=== PATIENT | male | born 1980 | race Caucasian/White ===

== ENCOUNTER 2021-09-26 08:07 | Outpatient (REF) | payer OTHER, SELFPAY ==
[2021-09-26 09:02] LABS: Alanine Aminotransferase 33 U/L (0-40); Albumin Level 4.8 g/dL (3.5-5.0); Alkaline Phosphatase 72 U/L (39-117); Anion Gap 13 (12-20); Aspartate Amino Transferase 22 U/L (5-37); Bilirubin Total 1.3 mg/dL (0.0-1.0); Blood Urea Nitrogen 21 mg/dL (9-16); Calcium 10.1 mg/dL (8.4-10.2); Carbon Dioxide 25 mmol/L (22-29); Chloride 106 mmol/L (96-108); Cholesterol 208 mg/dL; Estimated Glomerular Filt Rate > 60; Glucose Fasting 113 mg/dL (60-99); HDL Cholesterol 44 mg/dL; Hematocrit 48.6 % (42.0-52.0); LDL Cholesterol Calculated 145 mg/dl; Mean Corpuscular HGB Conc 32.9 g/dl (31.0-36.0); Mean Corpuscular Hemoglobin 27.3 pg (27.0-33.0); Mean Corpuscular Volume 82.8 fL (80.0-98.0); Mean Platelet Volume 11.2 fL (9.4-12.4); Platelet Count 283 X10*3/uL (160-400); Potassium 4.8 mmol/L (3.3-5.1); Red Blood Count 5.87 X10*6/uL (4.60-5.80); Sodium 139 mmol/L (135-145); Total Protein 7.7 g/dL (6.5-8.0); Triglycerides 98 mg/dL; White Blood Count 7.2 X10*3/uL (4.8-10.8)
[2021-09-26 09:23] LABS: TSH reflex Free T4 1.35 uIU/mL (0.32-4.0)
== END 2021-09-26 08:08 | disposition home or self-care (01) ==
LOC: HO.LAB 08:07
PROVIDERS: PCP Internal Medicine; Visit Provider Nurse Practitioner Family
DX: Z00.00 Encounter for general adult medical examination without abnormal findings (principal); E78.00 Pure hypercholesterolemia, unspecified
CPT/HCPCS: 36415; 80053; 80061; 84443; 85027

== ENCOUNTER 2021-10-08 14:10 | Outpatient (REF) | payer OTHER, SELFPAY ==
--- NOTE | ~2021-10-08 | MM_ITS ---
EXAMINATION: MM DIAGNOSTIC DIGITAL BREAST TOMOSYNTHESIS, BILATERAL US DIAGNOSTIC ULTRASOUND BREAST, LEFT CLINICAL INFORMATION: 40-year-old male with chronic small oval palpable area lateral left breast. No prior breast imaging. No known family history breast cancer. COMPARISON: None (current study represents initial baseline exam). TECHNIQUE: Digital breast tomosynthesis is performed in both the craniocaudal and mediolateral oblique views along with computer-aided detection (CAD). Synthesized 2D images are generated from the tomosynthesis. Ultrasound left breast is targeted to the area of clinical concern. Patient is able to point to area at time of imaging. Grayscale imaging and color Doppler are performed without and with harmonics. FINDINGS: The breasts are almost entirely fatty (ACR BI-RADS breast composition Category a). There is no mass or architectural abnormality or abnormal calcifications. No skin thickening or coarsening of the stromal markings. No visible lipoma. The axilla and skin contours are unremarkable. Ultrasound demonstrates no cystic or solid mass or architectural abnormality. No duct ectasia. No skin thickening or edema tracking in soft tissue planes. There is subtle incidental oval hyperechoic fat lobule at site of palpable concern 1:00 position 4 cm from nipple measuring 1.3 x 0.7 cm on ultrasound. No corresponding mammographic finding or lipoma in this area. The chest wall soft tissues appear normal. No hyperemia. Results are discussed with the patient at time of visit. MM/MM tomosynthesis diagnostic BI IMPRESSION: 1. No mammographic evidence of malignancy or inflammatory changes 2. Unremarkable targeted left breast ultrasound. ASSESSMENT: BI-RADS 1: Negative RECOMMENDATION: -Patient should be managed based on the clinical impression. -If there remains a clinically palpable areas of concern, surgical consult may be considered.
== END 2021-10-08 14:11 | disposition home or self-care (01) ==
LOC: HO.MAMMO 14:10
PROVIDERS: Visit Provider Nurse Practitioner Family
DX: N63.21 Unspecified lump in the left breast, upper outer quadrant (principal)
CPT/HCPCS: 76642; 77062; 77066

== ENCOUNTER 2022-05-04 09:18 | Outpatient (REF) | payer OTHER, SELFPAY ==
--- NOTE | ~2022-05-04 | XR_ITS ---
EXAMINATION: 1. RADIOGRAPHS RIGHT KNEE 2. RADIOGRAPHS LEFT KNEE CLINICAL INFORMATION: Knee pain COMPARISON: None TECHNIQUE: 2 views of each knee were obtained. FINDINGS: Right knee: No fracture or dislocation. Trace suprapatellar joint effusion. There is mild narrowing of the medial joint space height. Moderate-sized tricompartmental marginal osteophytes are present. No focal soft tissue swelling of the anterior knee. Left knee: No fracture or dislocation. No suprapatellar joint effusion. Joint spaces are maintained. No significant osteophytes. No focal soft tissue swelling of the anterior knee. XR/XR knee RT 2V IMPRESSION: 1. Moderate degenerative changes of the right knee. 2. Grossly unremarkable radiographs of the left knee.
--- NOTE | ~2022-05-04 | XR_ITS ---
EXAMINATION: 1. RADIOGRAPHS RIGHT KNEE 2. RADIOGRAPHS LEFT KNEE CLINICAL INFORMATION: Knee pain COMPARISON: None TECHNIQUE: 2 views of each knee were obtained. FINDINGS: Right knee: No fracture or dislocation. Trace suprapatellar joint effusion. There is mild narrowing of the medial joint space height. Moderate-sized tricompartmental marginal osteophytes are present. No focal soft tissue swelling of the anterior knee. Left knee: No fracture or dislocation. No suprapatellar joint effusion. Joint spaces are maintained. No significant osteophytes. No focal soft tissue swelling of the anterior knee. XR/XR knee LT 2V IMPRESSION: 1. Moderate degenerative changes of the right knee. 2. Grossly unremarkable radiographs of the left knee.
== END 2022-05-04 09:19 | disposition home or self-care (01) ==
LOC: HO.XRAY 09:18
PROVIDERS: PCP Internal Medicine; Visit Provider Internal Medicine
DX: M25.561 Pain in right knee (principal); M25.562 Pain in left knee
CPT/HCPCS: 73560

== ENCOUNTER 2022-10-22 06:59 | Outpatient (REF) | payer OTHER, SELFPAY ==
[2022-10-22 07:09] LABS: MANUAL DIFF FLAG NO
[2022-10-22 07:34] LABS: Basophils Percent Auto 0.6 % (0-2); Eosinophils Absolute Auto 0.3 X10*3/uL (0.0-0.4); Eosinophils Percent Auto 3.7 % (0-4); Hematocrit 46.6 % (42.0-52.0); Hemoglobin 15.7 g/dl (14.0-18.0); Imm Gran Abs Auto 0.02 X10*3/uL (0.00-0.03); Imm Gran Pct Auto 0.3 % (0.0-0.4); Lymphocytes Absolute Auto 2.8 X10*3/uL (1.2-4.9); Lymphocytes Percent Auto 39.3 % (20-40); Mean Corpuscular HGB Conc 33.7 g/dl (31.0-36.0); Mean Corpuscular Hemoglobin 27.1 pg (27.0-33.0); Mean Corpuscular Volume 80.5 fL (80.0-98.0); Mean Platelet Volume 11.1 fL (9.4-12.4); Monocytes Absolute Auto 0.7 X10*3/uL (0.1-1.2); Monocytes Percent Auto 10.1 % (2-11); Neutrophils Absolute Auto 3.2 x10*3/uL (2.0-8.3); Platelet Count 259 X10*3/uL (160-400); Red Blood Count 5.79 X10*6/uL (4.60-5.80); Red Cell Distribution Width 11.9 % (11.0-16.0)
[2022-10-22 07:45] LABS: Estimated Average Glucose 105 mg/dL; Hemoglobin A1c % 5.3 %
[2022-10-22 08:04] LABS: Alanine Aminotransferase 29 U/L (0-40); Albumin Level 4.7 g/dL (3.5-5.0); Alkaline Phosphatase 68 U/L (39-117); Anion Gap 12 (12-20); Aspartate Amino Transferase 19 U/L (5-37); Bilirubin Total 1.6 mg/dL (0.0-1.0); Blood Urea Nitrogen 28 mg/dL (9-16); Calcium 9.3 mg/dL (8.4-10.2); Carbon Dioxide 20 mmol/L (22-29); Chloride 109 mmol/L (96-108); Cholesterol 205 mg/dL; Estimated Glomerular Filt Rate > 60; Glucose Random 102 mg/dL (60-115); HDL Cholesterol 44 mg/dL; LDL Cholesterol Calculated 133 mg/dl; Potassium 4.3 mmol/L (3.3-5.1); Sodium 137 mmol/L (135-145); Total Protein 7.2 g/dL (6.5-8.0); Triglycerides 143 mg/dL
[2022-10-22 08:37] LABS: Folate 8.3 ng/mL (> or = 4.0); Free T4 (Free Thyroxine) 0.98 ng/dL (0.71-1.85); Thyroid Stimulating Hormone 1.83 uIU/mL (0.32-4.0); Vitamin B12 471 pg/mL (200-900)
== END 2022-10-22 07:00 | disposition home or self-care (01) ==
LOC: HO.LAB 06:59
PROVIDERS: PCP Internal Medicine; Visit Provider Internal Medicine
DX: R73.02 Impaired glucose tolerance (oral) (principal); E78.00 Pure hypercholesterolemia, unspecified
CPT/HCPCS: 36415; 80053; 80061; 82607; 82746; 83036; 84439; 84443; 85025

== ENCOUNTER 2022-12-24 17:00 | Outpatient (RCR) | payer OTHER, SELFPAY ==
--- NOTE | 2022-12-01 18:20 | MHC.PT.EP ---
[facility] [place] Office [place] Office [place] Office [address] [phone] F: [phone] F: [phone] F: [phone] F: [phone] Physical Therapy Plan of Care Date of Evaluation: Date of Surgery: Diagnosis: RIGHT knee pain LEFT knee pain Assessment: Patient is a 41 y.o. male who is referred to PT by Dr. Babar MD, with Dx of RIGHT knee pain and LEFT knee pain. PT diagnosis is Hx of R knee ACL, MCL and meniscal tear from old imaging per patient with no recent MRI. Patient impairments include pain, weakness, instability. Patient current functional limitations are lying, sitting, ascending stairs, descending stairs, squatting. Patient will benefit from skilled PT to address aforementioned impairments and functional limitations to meet established goals. Frequency and Duration: The patient will be seen 2x/week for 4 weeks Short Term Goals: 2 weeks Patient demonstrates consistency and independence with HEP to self manage symptoms. Patient presents with normalized gait pattern without Trendelenberg gait on L. Pound Attendant Goals: 4 weeks Patient presents with increased R knee quad strength 4+/5 to ascend a flight of stairs without difficulty. Patient presents with increased L glute med strength 5/5 to perform squat to low surface with increased stability. Treatment Plan: Modalities to reduce pain, spasms and effusion. Manual therapy to restore motion and function. Therapeutic exercise to improve strength and flexibility. Neuromuscular re-education for posture and balance. Therapeutic activities to return to functional activities of daily living. Electronically signed by: Aleksandar Carter, PT, DPT Please sign and return to therapist. Thank you for your referral.
--- NOTE | 2023-01-20 14:57 | MHC.PT.DC ---
[facility] [place] Office [place] Office [place] Office [address] 140 [facility] [phone] F: [phone] F: [phone] F: [phone] F: [phone] Physical Therapy Discharge Report Diagnosis: RIGHT knee pain LEFT knee pain Date of Surgery: Date of Evaluation: 12/01/22 Date of Discharge: 12/24/22 Treatments to Date: 4 Cancellations to Date: 2 No Shows to Date: 1 Discharge Status: Independent with HEP Visit Non-compliance Discharge Summary: Patient ceased attending PT on his own accord as of 12/24/2022. He is therefore discharged from PT. Electronically signed by: Aleksandar Carter, PT, DPT Please sign and return to therapist. Thank you for your referral.
== END 2023-01-20 14:57 | disposition home or self-care (01) ==
LOC: HO.PT 17:00
PROVIDERS: PCP Internal Medicine; Visit Provider Internal Medicine
DX: M25.561 Pain in right knee (principal); M25.562 Pain in left knee
CPT/HCPCS: 97110; 97112; 97161

== ENCOUNTER 2023-04-27 07:52 | Outpatient (REF) | payer OTHER, SELFPAY ==
[2023-04-27 08:06] LABS: MANUAL DIFF FLAG NO
[2023-04-27 08:13] LABS: Basophils Absolute Auto 0.1 X10*3/uL (0.0-0.2); Basophils Percent Auto 0.9 % (0-2); Eosinophils Absolute Auto 0.2 X10*3/uL (0.0-0.4); Eosinophils Percent Auto 4.2 % (0-4); Hematocrit 43.3 % (42.0-52.0); Hemoglobin 15.3 g/dl (14.0-18.0); Imm Gran Abs Auto 0.02 X10*3/uL (0.00-0.03); Imm Gran Pct Auto 0.3 % (0.0-0.4); Lymphocytes Absolute Auto 2.3 X10*3/uL (1.2-4.9); Lymphocytes Percent Auto 40.5 % (20-40); Mean Corpuscular HGB Conc 35.3 g/dl (31.0-36.0); Mean Corpuscular Hemoglobin 28.9 pg (27.0-33.0); Mean Corpuscular Volume 81.7 fL (80.0-98.0); Mean Platelet Volume 10.1 fL (9.4-12.4); Monocytes Absolute Auto 0.5 X10*3/uL (0.1-1.2); Monocytes Percent Auto 9.4 % (2-11); Neutrophils Absolute Auto 2.6 x10*3/uL (2.0-8.3); Neutrophils Percent Auto 44.7 % (45-73); Platelet Count 268 X10*3/uL (160-400); White Blood Count 5.8 X10*3/uL (4.8-10.8)
[2023-04-27 08:20] LABS: Estimated Average Glucose 103 mg/dL; Hemoglobin A1c % 5.2 % (<6.0)
[2023-04-27 08:47] LABS: Alanine Aminotransferase 36 U/L (0-40); Albumin Level 4.7 g/dL (3.5-5.0); Alkaline Phosphatase 63 U/L (39-117); Anion Gap 13 (12-20); Aspartate Amino Transferase 25 U/L (5-37); Bilirubin Total 1.4 mg/dL (0.0-1.0); Blood Urea Nitrogen 15 mg/dL (9-16); Calcium 9.2 mg/dL (8.4-10.2); Carbon Dioxide 23 mmol/L (22-29); Chloride 106 mmol/L (96-108); Cholesterol 191 mg/dL (<200); Estimated Glomerular Filt Rate > 60; Glucose Random 108 mg/dL (60-115); HDL Cholesterol 46 mg/dL (>40); LDL Cholesterol Calculated 117 mg/dL (<100); Sodium 138 mmol/L (135-145); Total Protein 7.7 g/dL (6.5-8.0); Triglycerides 141 mg/dL (<150)
[2023-04-27 09:07] LABS: Free T4 (Free Thyroxine) 0.92 ng/dL (0.71-1.85); Thyroid Stimulating Hormone 1.31 uIU/mL (0.32-4.0)
[2023-04-27 09:18] LABS: Folate 12.1 ng/mL (> or = 4.0); Vitamin B12 737 pg/mL (200-900)
== END 2023-04-27 07:53 | disposition home or self-care (01) ==
LOC: HO.LAB 07:52
PROVIDERS: PCP Internal Medicine; Visit Provider Internal Medicine
DX: R73.02 Impaired glucose tolerance (oral) (principal); E78.00 Pure hypercholesterolemia, unspecified
CPT/HCPCS: 36415; 80053; 80061; 82607; 82746; 83036; 84439; 84443; 85025

== ENCOUNTER 2023-04-30 08:34 | Outpatient (AMB) | payer OTHER, SELFPAY ==
[2023-04-30 08:44] VITALS: BP 140/80; PULSE 80; O2SAT 98; BMI 33.7
--- NOTE | 2023-04-30 08:44 | A.OFFPC_ITS ---
Vital Signs 04/30/23 08:44 04/30/23 09:08 Height 6 ft 0.5 in Weight 252 lb BMI 33.7 BP 140/80 H 140/80 H Blood Pressure Location Lt brachial Lt brachial Position Sitting Sitting Pulse 80 Pulse Source Pulse Oximeter Pulse Oximetry (%) 98 Oxygen Delivery Method Room Air Intake Visit Reasons: PE +NEEDS PHQ9/THRIVE Allergies No Known Allergies Allergy (Verified 04/30/23 08:44) Medication List - Last Reconciled 04/30/23 by Chilango Eckert MD albuterol sulfate 2.5 mg inhalation Q6H PRN albuterol sulfate 90 mcg/actuation 2 inhalations inhalation Q6-8H PRN alpha-1 proteinase inhib.(hum) IV fluticasone propion-salmeterol 500-50 mcg/dose (Wixela Inhub) 1 inh PO BID [Hinged KNEE Brace As directed] meloxicam 15 mg PO DAILY tiotropium bromide 1.25 mcg/actuation (Spiriva Respimat) 2 puffs inhalation DAILY Tobacco use date assessed: 10/27/22 Dental Screening Dental Screen Date: 04/30/23 Did you have a dental visit in the last 12 months?: Yes Did you have a dental problem in the last 6 months where you did not have access to dental care?: No Was dental information given to patient?: Patient has dentist HPI PE +NEEDS PHQ9/THRIVE HPI Details 42-year-old obese male with impaired glu cose tolerance asthma with alpha 1 antitrypsin deficiency coming in for follow-up. Patient had a right ACL tear. Last seen in October 2022. Patient follows up with pulmonary on Symbicort Spiriva and Singulair on Prolastin February 2023 right knee x-ray did show degenerative changes. BP elevated states DRANK [employer] [facility] Medical History (Updated 04/30/23 @ 09:33 by Chilango Eckert MD) Osteoarthritis of right knee Lyjrw-1-vflcbvrnqji deficiency Severe persistent asthma Vitamin D deficiency Physical exam Obesity (BMI 30-39.9) Impaired glucose tolerance Surgical History Finger fracture Status post arthroscopy of hip Family History (Updated 09/25/21 @ 16:47 by DINESH Krueger) Father No problems noted. Mother No problems noted. Maternal Grandfather Myocardial infarction Paternal Grandfather Esophageal cancer Social History (Updated 09/25/21 @ 16:46 by DINESH Krueger) Housing: House Alcohol intake: never Patient Tobacco Use Status: Former Tobacco user Quit Date: 2016 Tobacco use type: Cigarette e-Cigarette/Vaping Use: Never Used Second Hand Smoke Exposure: No service: No Current occupational status: employed Cognitive needs: No Hearing needs: No Vision needs: Yes (contacts) Questionnaire Thrive Questionnaire Date Thrive assessed: 10/27/22 AMIRAH-7 AMB Questionnaire AMIRAH-7 Date AMIRAH - 7 assessed: 10/27/22 Source: Developed by Drs. Ronnell Hull, Yolanda Ramirez, Dc Campbell and colleagues, with an educational brayan from [employer]. Review of Systems Const Denies poor appetite and Denies weakness Eyes Denies no additional complaints ENT Reports Normal hearing present, Denies dizziness, Denies nasal congestion, Denies tinnitus and Denies sore throat Card Denies chest pain, Denies syncope, Denies rapid heart rate and Denies dyspnea Resp Denies cough and Denies dyspnea GI Denies change in stool character, Reports constipation, Denies diarrhea, Denies nausea and Denies vomiting Denies dysuria and Denies urinary frequency Neuro Reports Normal hearing present, Denies confusion, Denies dizziness, Denies syncope and Denies weakness Psych Denies confusion Physical exam (Primary Care) Vital Signs: Last Vital Signs Pulse 80 04/30/23 08:44 BP 140/80 H 04/30/23 08:44 Pulse Ox 98 04/30/23 08:44 Oxygen Delivery Method Room Air 04/30/23 08:44 BMI result Body Mass Index 33.7 Tobacco/Smoking Status: Tobacco use Status Tobacco use date assessed 10/27/22 04/30/23 08:49 Patient Tobacco Use Status Former Tobacco user 04/30/23 08:49 Tobacco use type Cigarette 04/30/23 08:49 e-Cigarette/Vaping Use Never Used 04/30/23 08:49 Thrive Assessment: Date of Thrive Assessment Date Thrive assessed 10/27/22 04/30/23 08:49 Const General: No confusion Orientation/consciousness: No confusion HENMT Head: Yes normocephalic Ears: external ears normal and TM's normal bilaterally Face and sinus: Yes normal facial exam Mouth: moist mucous membranes Throat: Yes tonsils normal Eyes Conjunctivae: conjunctivae normal Pupils: Equal, round and reactive pupils present and Pupil accommodation reflex normal Direct Ophthalmoscopy: normal light reflex Neck Neck: No lymphadenopathy Thyroid: Thyroid normal Chest Chest palpation & inspection: normal inspection of the chest Resp Effort & Inspection: normal respiratory effort and no audible wheezes Auscultation: clear to auscultation bilaterally, no crackles, no wheezes and lung sounds not diminished Cardio Rate: regular rate Rhythm: regular rhythm Peripheral pulses: radial pulses present and dorsalis pedis present GI Other: visual negative Palpation (GI): no masses Auscultation: normal bowel sounds and normoactive bowel sounds Rectal Exam - Male: Yes deferred Male General Exam: Yes normal external exam Skin General skin exam: no rashes or lesions noted Rashes: no rashes Neuro General: No confusion Cranial nerves: Yes Equal, round and reactive pupils present and Yes Normal hea ring present Cognition (Neuro): normal cognition Gait exam (Neuro): Normal gait present Motor exam (neuro): 5/5 motor strength present throughout Deep tendon reflexes (DTR's): Right brachioradialis reflex intensity grade: 2+, Left brachioradialis reflex intensity grade: 2+, Right patellar reflex intensity grade: 2+ and Left patellar reflex intensity grade: 2+ Extrem Other: has bunions but not ready for surgery General: No edema Assessment and Plan Assessment & Plan (1) Annual physical exam: Code(s): Z00.00 - Encounter for general adult medical examination without abnormal findings (2) Right ACL tear: Comment: October 1999 and complex tear medial and lateral meniscus, anterior cruciate ligament tear moderate degenerative changes Code(s): S83.511A - Sprain of anterior cruciate ligament of right knee, initial encounter (3) Ragzv-3-yonyuvabiwq deficiency: Code(s): E88.01 - Uojcf-7-cmovqoabjwm deficiency Plan: Patient being followed up by Pulmonary Dr. Page remarkable improvement after the infusion of Prolastin (4) Obesity (BMI 30-39.9): Code(s): E66.9 - Obesity, unspecified Plan: Diet and exercise (5) Impaired glucose tolerance: Code(s): R73.02 - Impaired glucose tolerance (oral) Plan: Decrease the amount of carbohydrate intake, pasta, bread, rice and potatoes are all sugar and that is aside from all the sweet stuff, remember that fruits are good but they are Sweet also. Hemoglobin A1c is normal (6) Severe persistent asthma: Code(s): J45.50 - Severe persistent asthma, uncomplicated Plan: Continues to follow-up with Pulmonary on albuterol wixela and Spiriva (7) Hypercholesterolemia: Code(s): E78.00 - Pure hypercholesterolemia, unspecified Plan: Avoid fried foods, chicken skin, eggs, butter margarine, pastries and meat. Be it pork or beef they have a lot of cholesterol LDL goal of less than 130 and triglyceride of less than 150. Patient is cholesterol improved on follow-up blood work. (8) Bilateral finger numbness: Code(s): R20.0 - Anesthesia of skin Plan: Wrist splints prescribed (9) Tailor's bunion of both feet: Code(s): M21.621 - Bunionette of right foot; M21.622 - Bunionette of left foot Plan: will call if causing problems Orders: Orders 2 Complete Blood Count Auto Diff 6 Months E88.01 - Ksepl-7-smunjcvgdid deficiency Hemoglobin A1c 364 Days R73.02 - Impaired glucose tolerance (oral) Lipid Panel 364 Days E78.00 - Pure hypercholesterolemia, unspecified Thyroid Stimulating Hormone 364 Days E78.00 - Pure hypercholesterolemia, uns pecified Vitamin B12 and Folate 364 Days E78.00 - Pure hypercholesterolemia, unspecified Comprehensive Met. Panel 6 Months E88.01 - Nrbtz-9-qgdqrsyucms deficiency Free T4 (Free Thyroxine) 364 Days E78.00 - Pure hypercholesterolemia, unspecified Complete Blood Count Auto Diff 364 Days E78.00 - Pure hypercholesterolemia, unspecified Comprehensive Met. Panel 364 Days E78.00 - Pure hypercholesterolemia, unspecified Medications: New [Bilateral wrist splints Right and Left] As directed 1 ea 0RF 1 each hand R20.0 - Anesthesia of skin Coding Level of Care Code Est Pt Prev Care 40-64y(22426) Diagnoses Annual physical exam Z00.00 Right ACL tear S83.511A Zntge-6-joqfrcjruit deficiency E88.01 Obesity (BMI 30-39.9) E66.9 Impaired glucose tolerance R73.02 Severe persistent asthma J45.50 Hypercholesterolemia E78.00 Bilateral finger numbness R20.0 Tailor's bunion of both feet M21.621; M21.622
[2023-04-30 09:08] VITALS: BP 140/80
== END 2023-04-30 09:30 | disposition home or self-care (01) ==
PROVIDERS: Visit Provider Internal Medicine
DX: Z00.00 Encounter for general adult medical examination without abnormal findings (principal); E88.01 Alpha-1-antitrypsin deficiency; J45.50 Severe persistent asthma, uncomplicated; E66.9 Obesity, unspecified; S83.511A Sprain of anterior cruciate ligament of right knee, initial encounter; R73.02 Impaired glucose tolerance (oral); E78.00 Pure hypercholesterolemia, unspecified; R20.0 Anesthesia of skin; M21.621 Bunionette of right foot; M21.622 Bunionette of left foot
CPT/HCPCS: 99396

== ENCOUNTER 2023-11-01 07:35 | Outpatient (REF) | payer OTHER, SELFPAY ==
[2023-11-01 07:42] LABS: MANUAL DIFF FLAG NO
[2023-11-01 08:00] LABS: Basophils Absolute Auto 0.1 X10*3/uL (0.0-0.2); Basophils Percent Auto 0.8 % (0-2); Eosinophils Absolute Auto 0.4 X10*3/uL (0.0-0.4); Eosinophils Percent Auto 4.5 % (0-4); Hematocrit 47.1 % (42.0-52.0); Hemoglobin 16.3 g/dl (14.0-18.0); Imm Gran Abs Auto 0.03 X10*3/uL (0.00-0.03); Imm Gran Pct Auto 0.4 % (0.0-0.4); Lymphocytes Absolute Auto 3.4 X10*3/uL (1.2-4.9); Lymphocytes Percent Auto 40.7 % (20-40); Mean Corpuscular HGB Conc 34.6 g/dl (31.0-36.0); Mean Corpuscular Volume 80.8 fL (80.0-98.0); Mean Platelet Volume 10.7 fL (9.4-12.4); Monocytes Absolute Auto 0.7 X10*3/uL (0.1-1.2); Monocytes Percent Auto 8.9 % (2-11); Neutrophils Absolute Auto 3.7 x10*3/uL (2.0-8.3); Neutrophils Percent Auto 44.7 % (45-73); Platelet Count 270 X10*3/uL (160-400); Red Blood Count 5.83 X10*6/uL (4.60-5.80); Red Cell Distribution Width 12.1 % (11.0-16.0); White Blood Count 8.2 X10*3/uL (4.8-10.8)
[2023-11-01 08:40] LABS: Alanine Aminotransferase 33 U/L (0-40); Albumin Level 4.6 g/dL (3.5-5.0); Alkaline Phosphatase 66 U/L (39-117); Anion Gap 9 (12-20); Aspartate Amino Transferase 19 U/L (5-37); Blood Urea Nitrogen 23 mg/dL (9-16); Calcium 9.6 mg/dL (8.4-10.2); Carbon Dioxide 26 mmol/L (22-29); Chloride 106 mmol/L (96-108); Estimated Glomerular Filt Rate > 60; Glucose Random 113 mg/dL (60-115); Potassium 4.3 mmol/L (3.3-5.1); Sodium 137 mmol/L (135-145); Total Protein 7.6 g/dL (6.5-8.0)
== END 2023-11-01 07:36 | disposition home or self-care (01) ==
LOC: HO.LAB 07:35
PROVIDERS: PCP Internal Medicine; Visit Provider Internal Medicine
DX: E88.01 Alpha-1-antitrypsin deficiency (principal)
CPT/HCPCS: 36415; 80053; 85025

== ENCOUNTER 2023-11-02 08:32 | Outpatient (AMB) | payer OTHER, SELFPAY ==
--- NOTE | 2023-11-02 08:51 | A.OFFPC_ITS ---
Vital Signs 11/02/23 08:52 Height 6 ft 0.5 in Weight 250 lb BMI 33.4 BP 138/92 H Blood Pressure Location Lt brachial Position Sitting Pulse 84 Pulse Source Pulse Oximeter Pulse Oximetry (%) 97 Oxygen Delivery Method Room Air Intake Visit Reasons: asthma , COPD Allergies No Known Allergies Allergy (Verified 11/02/23 08:53) Tobacco use date assessed: 11/02/23 Dental Screening Dental Screen Date: 11/02/23 Did you have a dental visit in the last 12 months?: Yes Did you have a dental problem in the last 6 months where you did not have access to dental care?: No Was dental information given to patient?: Patient has dentist HPI asthma , COPD HPI Details 42-year-old obese male with a history of alpha 1 antitrypsin deficiency right ACL tear impaired glucose tolerance asthma coming in for follow-up last seen for physical in April 2023 patient had an ER visit for chest pain in June 2023 asthma exacerbation was given DuoNeb and Solu-Medrol and sent home on tapering prednisone. Patient's last complete blood work was in April 2023. BP is god at home. seeing Dr. Page [facility] Medical History (Updated 04/30/23 @ 09:33 by Chilango Eckert MD) Osteoarthritis of right knee Oyjav-6-tkycfrqsgnq deficiency Severe persistent asthma Vitamin D deficiency Physical exam Obesity (BMI 30-39.9) Impaired glucose tolerance Surgical History Finger fracture Status post arthroscopy of hip Family History (Updated 09/25/21 @ 16:47 by DINESH Krueger) Father No problems noted. Mother No problems noted. Maternal Grandfather Myocardial infarction Paternal Grandfather Esophageal cancer Social History (Updated 09/25/21 @ 16:46 by DINESH Krueger) Housing: House Alcohol intake: never Patient Tobacco Use Status: Former Tobacco user Quit Date: 2016 Tobacco use type: Cigarette e-Cigarette/Vaping Use: Never Used Second Hand Smoke Exposure: No service: No Current occupational status: employed Cognitive needs: No Hearing needs: No Vision needs: Yes (contacts) Questionnaire PHQ-9 Over the last 2 weeks, how often have you been bothered by any of the following problems? 1. Little interest or pleasure in doing things: not at all 2. Feeling down, depressed, or hopeless: not at all 3. Trouble falling or staying asleep, or sleeping too much: not at all 4. Feeling tired or having little energy: not at all 5. Poor appetite or overeating: not at all 6. Feeling bad about yourself - or that you are a failure or have let yourself or your family down: not at all 7. Trouble concentrating on things, such as reading the newspaper or watching television: not at all 8. Moving or speaking so slowly that other people could have noticed. Or the opposite - being so fidgety or restless that you have been moving around a lot more than usual: not at all 9. Thoughts that you would be better off or of hurting yourself in some way: not at all Total score: 0 Depression Screening Interpretation: Negative Depression Screening Done: Yes Source: Developed by Drs. Ronnell Hull, Yolanda Ramirez, Dc Campbell and colleagues, with an educational brayan from [employer]. Thrive Questionnaire Date Thrive assessed: 11/02/23 I am a: Patient What is your living situation today?: I have a steady place to live Within the past 12 months, did the food you bought not last and you didn't have the money to get more?: Never true Within the past 12 months, did you worry whether your food would run out before you got money to buy more?: Never true Do you have trouble paying for medicines?: No Do you have trouble getting transportation to medical appointments?: No Do you have trouble paying your heating and electricity bill?: No Do you have trouble taking care of your child, family member or friend?: No Do you have trouble with day-to-day activities such as bathing, preparing meals, shopping, managing finances, etc.?: No Are you currently unemployed and looking for a job?: No Are you interested in more education?: No Currently or been in a relationship where the following occur: no concerns reported THRIVE Score: 0 AUDIT C Alcohol Use Questionnaire (AUDIT-C) 1. How often do you have a drink containing alcohol?: Never 3. How often do you have six or more drinks on one occasion?: Never Total Score: 0 AMIRAH-7 AMB Questionnaire AMIRAH-7 Date AMIRAH - 7 assessed: 11/02/23 Feeling nervous, anxious, or on edge: 0 = Not at all Not being able to stop or control worryin = Not at all Worrying too much about different things: 0 = Not at all Trouble relaxin = Not at all Being so restless that it is hard to sit still: 0 = Not at all Becoming easily annoyed or irritable: 0 = Not at all Feeling afraid as if something awful might happen: 0 = Not at all Total AMIRAH-7 score (0-4 normal; 5-9 mild; 10-14 moderate; 15-21 severe): 0 Source: Developed by Drs. Ronnell Hull, Yolanda Ramirez, Dc Campbell and colleagues, with an educational brayan from [employer]. Physical exam (Primary Care) Vital Signs: Last Vital Signs Pulse 84 11/02/23 08:52 BP 138/92 H 11/02/23 08:52 Pulse Ox 97 11/02/23 08:52 Oxygen Delivery Method Room Air 11/02/23 08:52 BMI result Body Mass Index 33.4 Tobacco/Smoking Status: Tobacco use Status Tobacco use date assessed 11/02/23 11/02/23 08:58 Patient Tobacco Use Status Former Tobacco user 11/02/23 08:58 Tobacco use type Cigarette 11/02/23 08:58 e-Cigarette/Vaping Use Never Used 11/02/23 08:58 PHQ-9: PHQ-9 Score PHQ-9: Total score 0 11/02/23 08:58 Depression Screening Interpretation: Negative Thrive Assessment: Date of Thrive Assessment Date Thrive assessed 11/02/23 11/02/23 08:58 Currently or been in a relationship where the following occur: no concerns reported Const General: alert; No acute distress Eyes Conjunctivae: conjunctivae normal Resp Auscultation: clear to auscultation bilaterally Cardio Rate: regular rate Rhythm: regular rhythm GI Inspection: Yes normal to inspection Extrem General: Yes normal to inspection and No edema Assessment and Plan Assessment & Plan (1) Obesity (BMI 30-39.9): Code(s): E66.9 - Obesity, unspecified Plan: Diet and exercise (2) Impaired glucose tolerance: Code(s): R73.02 - Impaired glucose tolerance (oral) Plan: Decrease the amount of carbohydrate intake, pasta, bread, rice and potatoes are all sugar and that is aside from all the sweet stuff, remember that fruits are good but they are Sweet also. (3) Severe persistent asthma: Code(s): J45.50 - Severe persistent asthma, uncomplicated Plan: Continue with albuterol and Wixela and Spiriva (4) Utiyg-9-xyrugvczbyi deficiency: Code(s): E88.01 - Qzdha-3-qdrxqjfprrc deficiency Plan: Continue to follow-up with Pulmonary (5) Bilateral finger numbness: Code(s): R20.0 - Anesthesia of skin Plan: advised to use the splints and if causing problem call and will order emg/ncv Coding Level of Care Code Est Pt Level 4 (46187) Diagnoses Obesity (BMI 30-39.9) E66.9 Impaired glucose tolerance R73.02 Severe persistent asthma J45.50 Azkli-1-ffpjfggozmu deficiency E88.01 Bilateral finger numbness R20.0
[2023-11-02 08:52] VITALS: BP 138/92; PULSE 84; O2SAT 97; BMI 33.4
== END 2023-11-02 09:21 | disposition home or self-care (01) ==
PROVIDERS: PCP Internal Medicine; Visit Provider Internal Medicine
DX: J45.50 Severe persistent asthma, uncomplicated (principal); R73.02 Impaired glucose tolerance (oral); E88.01 Alpha-1-antitrypsin deficiency; R20.0 Anesthesia of skin
CPT/HCPCS: 99214

== ENCOUNTER 2024-05-10 14:08 | Outpatient (REF) | payer OTHER, SELFPAY ==
--- NOTE | ~2024-05-10 | MM_ITS ---
EXAMINATION: BONE DENSITOMETRY CLINICAL INDICATION: Age-related osteoporosis without current pathological fracture. COMPARISON: This is the patient's baseline examination. TECHNIQUE: Using a [employer] DXA System (software version: 13.1) manufactured by [employer], dual-energy x-ray absorptiometry was performed of the lumbar spine and left hip. The images are of good technical quality. Based on ISCD (International Society for Clinical Densitometry) standards of reporting, Z-scores instead of T-scores are reported in this male patient younger than age 50. Summary results are attached. FINDINGS: AP SPINE L2-L4 (excluding L1): The data of L1-L4 has been changed to exclude the L1 vertebral body, because significant degenerative change at this level may cause overestimation of lumbar spine density. BMD 0.869 g/cm2, T-score -3.1, Z-score -3.7, Z-score below expected range for age. LEFT FEMUR, NECK: BMD 1.028 g/cm2, T-score -0.3, Z-score -0.4, Z-score within expected range for age. LEFT FEMUR, TOTAL: BMD 1.006 g/cm2, T-score -0.7, Z-score -0.9, Z-score within expected range for age. IDENTIFIED RISK FACTORS: Low calcium intake, glucocorticoids (chronic). HISTORY OF FRACTURE: None listed. MEDICATIONS: None listed. MM/XR DEXA axial skeleton IMPRESSION: 1. DIAGNOSIS: Based on the lowest Z-score value of -3.7 in the lumbar spine, the patient's bone density is below the expected range for age. 2. 10-YEAR FRACTURE RISK PREDICTION, FRAX: Not performed in this patient outside the age range of 50-90 years. 3. Treatment Recommendations: NOF guidelines recommend consideration for treatment in postmenopausal women and men age 50 and older presenting with the following: -A hip or vertebral (clinical or morphometric) fracture. -T-score less than or equal to -2.5 at the femoral neck or spine after appropriate evaluation to exclude secondary causes. -Low bone mass at the hip or spine and a 10-year fracture probability by FRAX of greater than or equal to 3% for hip fracture or greater than or equal to 20% for major osteoporotic fracture based on the [place] adapted WHO algorithm. 4. Other Recommendations: All treatment decisions require clinical judgment and consideration of individual patient factors, including patient preferences, comorbidities, previous drug use, risk factors not captured in the FRAX model (e.g. frailty, falls, vitamin D deficiency, increased bone turnover, interval significant decline in bone density) and possible under or overestimation of fracture risk by FRAX. Additional medical evaluation for secondary cause of low bone mineral density may be appropriate. FUTURE SCAN RECOMMENDATION: People with diagnosed cases of osteoporosis or at high risk for fracture should have regular bone mineral density tests. For patients eligible for Medicare, routine testing is allowed once every 2 years. The testing frequency can be increased to one year for patients who have rapidly progressing disease, those who are receiving or discontinuing medical therapy to restore bone mass, or have additional risk factors. Electronically signed by: Kyler Santos MD 05/25/2024 08:20 AM [facility]
== END 2024-05-10 14:09 | disposition home or self-care (01) ==
LOC: HO.MAMMO 14:08
PROVIDERS: PCP Internal Medicine; Visit Provider Internal Medicine
DX: M81.0 Age-related osteoporosis without current pathological fracture (principal); E88.01 Alpha-1-antitrypsin deficiency
CPT/HCPCS: 77080

== ENCOUNTER 2024-05-12 08:05 | Outpatient (REF) | payer OTHER, SELFPAY ==
[2024-05-12 08:15] LABS: MANUAL DIFF FLAG NO
[2024-05-12 08:50] LABS: Basophils Percent Auto 0.6 % (0-2); Eosinophils Absolute Auto 0.3 X10*3/uL (0.0-0.4); Eosinophils Percent Auto 4.2 % (0-4); Hematocrit 45.6 % (42.0-52.0); Hemoglobin 16.1 g/dl (14.0-18.0); Imm Gran Abs Auto 0.03 X10*3/uL (0.00-0.03); Imm Gran Pct Auto 0.4 % (0.0-0.4); Lymphocytes Absolute Auto 2.5 X10*3/uL (1.2-4.9); Lymphocytes Percent Auto 36.6 % (20-40); Mean Corpuscular HGB Conc 35.3 g/dl (31.0-36.0); Mean Corpuscular Hemoglobin 28.5 pg (27.0-33.0); Mean Corpuscular Volume 80.9 fL (80.0-98.0); Mean Platelet Volume 10.6 fL (9.4-12.4); Monocytes Absolute Auto 0.6 X10*3/uL (0.1-1.2); Monocytes Percent Auto 8.8 % (2-11); Neutrophils Absolute Auto 3.4 x10*3/uL (2.0-8.3); Neutrophils Percent Auto 49.4 % (45-73); Platelet Count 307 X10*3/uL (160-400); Red Blood Count 5.64 X10*6/uL (4.60-5.80); Red Cell Distribution Width 12.4 % (11.0-16.0); White Blood Count 6.9 X10*3/uL (4.8-10.8)
[2024-05-12 08:58] LABS: Estimated Average Glucose 111 mg/dL; Hemoglobin A1C 151.2228 umol/L; Hemoglobin A1c % 5.5 % (<6.0); Total Hemoglobin (HGBA1C) 4157.8182 umol/L
[2024-05-12 09:27] LABS: Alanine Aminotransferase 54 U/L (0-40); Albumin Level 4.7 g/dL (3.5-5.0); Alkaline Phosphatase 65 U/L (39-117); Anion Gap 12 (12-20); Aspartate Amino Transferase 31 U/L (5-37); Bilirubin Total 1.2 mg/dL (0.0-1.0); Blood Urea Nitrogen 20 mg/dL (9-16); Calcium 9.6 mg/dL (8.4-10.2); Carbon Dioxide 21 mmol/L (22-29); Chloride 108 mmol/L (96-108); Cholesterol 233 mg/dL (<200); Estimated Glomerular Filt Rate > 60; Glucose Random 110 mg/dL (60-115); HDL Cholesterol 42 mg/dL (>40); LDL Cholesterol Calculated 160 mg/dL (<100); Potassium 4.2 mmol/L (3.3-5.1); Sodium 137 mmol/L (135-145); Total Protein 7.8 g/dL (6.5-8.0); Triglycerides 156 mg/dL (<150)
[2024-05-12 09:47] LABS: Free T4 (Free Thyroxine) 0.87 ng/dL (0.71-1.85); Thyroid Stimulating Hormone 1.74 uIU/mL (0.32-4.0)
[2024-05-12 09:51] LABS: Folate 8.7 ng/mL (> or = 4.0); Vitamin B12 564 pg/mL (200-900)
== END 2024-05-12 08:06 | disposition home or self-care (01) ==
LOC: HO.LAB 08:05
PROVIDERS: PCP Internal Medicine; Visit Provider Internal Medicine
DX: E78.00 Pure hypercholesterolemia, unspecified (principal); R73.02 Impaired glucose tolerance (oral)
CPT/HCPCS: 36415; 80053; 80061; 82607; 82746; 83036; 84439; 84443; 85025

== ENCOUNTER 2024-05-15 10:05 | Outpatient (AMB) | payer OTHER, SELFPAY ==
--- NOTE | 2024-05-15 10:06 | A.OFFPC_ITS ---
Vital Signs 05/15/24 10:16 Height 6 ft 0.5 in Weight 262 lb BMI 35.0 BP 120/82 Blood Pressure Location Lt brachial Position Sitting Intake Visit Reasons: PE Intake Note: Patient here for a physical exam Apparel Cutter Required: No Accompanied by: Self / Same As Patient Allergies No Known Allergies Allergy (Verified 05/15/24 10:08) Medication List - Last Reconciled 05/15/24 by Chilango Eckert MD albuterol sulfate 90 mcg/actuation 2 inhalations inhalation Q4H PRN albuterol sulfate 2.5 mg inhalation Q4H PRN alpha-1 proteinase inhib.(hum) IV QWEEK [Bilateral wrist splints Right and Left As directed] fluticasone propion-salmeterol 500-50 mcg/dose (Wixela Inhub) 1 inh PO BID [Hinged KNEE Brace As directed] meloxicam 15 mg PO DAILY tiotropium bromide 1.25 mcg/actuation (Spiriva Respimat) 2 puffs inhalation DAILY Tobacco use date assessed: 11/02/23 Dental Screening Dental Screen Date: 11/02/23 HPI PE HPI Details 43-year-old obese male noted 12 lb weigh t gain with impaired glucose tolerance asthma alpha 1 antitrypsin deficiency coming physical exam. Last seen in October having bilateral numbness of the fingers. Patient had a bone density done but results are pending. Review of the notes has seen Pulmonary diagnosis of severe persistent asthma without complication alpha 1 antitrypsin deficiency February [address] Lemus continuing with Symbicort Spiriva Singulair and albuterol as needed. PFT 48% in 2021. Patient was given antibiotic Zithromax keep at home. does wake up sob at time. [facility] Medical History (Updated 05/15/24 @ 10:54 by Chilango Eckert MD) Osteoarthritis of right knee Jyghs-7-ltxtiltdtgt deficiency Severe persistent asthma Vitamin D deficiency Physical exam Obesity (BMI 30-39.9) Impaired glucose tolerance Surgical History Finger fracture Status post arthroscopy of hip Family History Father No problems noted. Mother No problems noted. Maternal Grandfather Myocardial infarction Paternal Grandfather Esophageal cancer Social History (Updated 05/15/24 @ 10:36 by Chilango Eckert MD) Housing: House Alcohol intake: current Comment: once Q 2months 2-3 drinks Patient Tobacco Use Status: Former Tobacco user Tobacco use type: Cigarette e-Cigarette/Vaping Use: Never Used Second Hand Smoke Exposure: No service: No Current occupational status: employed Cognitive needs: No Hearing needs: No Vision needs: Yes (contacts) Questionnaire PHQ-9 Over the last 2 weeks, how often have you been bothered by any of the following problems? 1. Little interest or pleasure in doing things: not at all 2. Feeling down, depressed, or hopeless: not at all 3. Trouble falling or staying asleep, or sleeping too much: not at all 4. Feeling tired or having little energy: not at all 5. Poor appetite or overeating: not at all 6. Feeling bad about yourself - or that you are a failure or have let yourself or your family down: not at all 7. Trouble concentrating on things, such as reading the newspaper or watching television: not at all 8. Moving or speaking so slowly that other people could have noticed. Or the opposite - being so fidgety or restless that you have been moving around a lot more than usual: not at all 9. Thoughts that you would be better off or of hurting yourself in some way: not at all Total score: 0 Depression Screening Interpretation: Negative Depression Screening Done: Yes Source: Developed by Drs. Ronnell Hull, Yolanda Ramirez, Dc Campbell and colleagues, with an educational brayan from [facility]. Thrive Questionnaire Date Thrive assessed: 11/02/23 I am a: Patient What is your living situation today?: I have a steady place to live Within the past 12 months, did the food you bought not last and you didn't have the money to get more?: I choose not to answer this question Within the past 12 months, did you worry whether your food would run out before you got money to buy more?: I choose not to answer this question Do you have trouble paying for medicines?: Yes Do you have trouble getting transportation to medical appointments?: No Do you have trouble paying your heating and electricity bill?: No Do you have trouble taking care of your child, family member or friend?: No Do you have trouble with day-to-day activities such as bathing, preparing meals, shopping, managing finances, etc.?: No Are you currently unemployed and looking for a job?: No Are you interested in more education?: No Please select the resources that you would like help with: None Currently or been in a relationship where the following occur: No concerns reported THRIVE Score: 0 AUDIT C Alcohol Use Questionnaire (AUDIT-C) 1. How often do you have a drink containing alcohol?: Never Total Score: 0 AMIRAH-7 AMB Questionnaire AMIRAH-7 Date AMIRAH - 7 assessed: 11/02/23 Feeling nervous, anxious, or on edge: 0 = Not at all Not being able to stop or control worryin = Not at all Worrying too much about different things: 0 = Not at all Trouble relaxin = Not at all Being so restless that it is hard to sit still: 0 = Not at all Becoming easily annoyed or irritable: 0 = Not at all Feeling afraid as if something awful might happen: 0 = Not at all Total AMIRAH-7 score (0-4 normal; 5-9 mild; 10-14 moderate; 15-21 severe): 0 Source: Developed by Drs. Ronnell Hull, Yolanda Ramirez, Dc Campbell and colleagues, with an educational baryan from [facility]. Review of Systems Const Denies poor appetite and Denies weakness Eyes Denies no additional complaints ENT Reports Normal hearing present, Denies dizziness, Denies nasal congestion, Danilo es tinnitus and Denies sore throat Card Denies chest pain, Denies syncope, Denies rapid heart rate and Denies dyspnea Resp Denies cough and Denies dyspnea GI Denies change in stool character, Reports constipation, Denies diarrhea, Denies nausea and Denies vomiting Denies dysuria and Denies urinary frequency Neuro Reports Normal hearing present, Denies confusion, Denies dizziness, Denies syncope and Denies weakness Psych Denies confusion Physical exam (Primary Care) Vital Signs: Last Vital Signs BP 120/82 05/15/24 10:16 BMI result Body Mass Index 35.0 Tobacco/Smoking Status: Tobacco use Status Tobacco use date assessed 11/02/23 05/15/24 10:11 Patient Tobacco Use Status Former Tobacco user 05/15/24 10:11 Tobacco use type Cigarette 05/15/24 10:11 e-Cigarette/Vaping Use Never Used 05/15/24 10:11 PHQ-9: PHQ-9 Score PHQ-9: Total score 0 05/15/24 10:11 Depression Screening Interpretation: Negative Thrive Assessment: Date of Thrive Assessment Date Thrive assessed 11/02/23 05/15/24 10:11 Currently or been in a relationship where the following occur: No concerns reported Const General: No confusion Orientation/consciousness: No confusion HENMT Head: Yes normocephalic Ears: external ears normal and TM's normal bilaterally Face and sinus: Yes normal facial exam Mouth: moist mucous membranes Throat: Yes tonsils normal Eyes Conjunctivae: conjunctivae normal Pupils: Equal, round and reactive pupils present and Pupil accommodation reflex normal Direct Ophthalmoscopy: normal light reflex Neck Neck: No lymphadenopathy Thyroid: Thyroid normal Chest Chest palpation & inspection: normal inspection of the chest Resp Effort & Inspection: normal respiratory effort and no audible wheezes Auscultation: clear to auscultation bilaterally, no crackles, no wheezes and lung sounds not diminished Cardio Rate: regular rate Rhythm: regular rhythm Peripheral pulses: radial pulses present and dorsalis pedis present GI Palpation (GI): no masses Auscultation: normal bowel sounds and normoactive bowel sounds Rectal Exam - Male: Yes deferred Skin General skin exam: no rashes or lesions noted Rashes: no rashes Neuro General: No confusion Cranial nerves: Yes Equal, round and reactive pupils present and Yes Normal hearing present Cognition (Neuro): normal cognition Gait exam (Neuro): Normal gait present Motor exam (neuro): 5/5 motor strength present throughout Deep tendon reflexes (DTR's): Right brachioradialis reflex intensity grade: 2+, Left brachioradialis reflex intensity grade: 2+, Right patellar reflex intensity grade: 2+ and Left patellar reflex intensity grade: 2+ Extrem General: No edema Office Procedures Flu Questionnaire Does the patient have a severe egg allergy?: No Has the patient ever had any past reaction to a flu shot?: Yes Immunizations Fluarix Triv 5337-0115 (PF) 45 mcg (15 mcg x 3)/0.5 mL IM syringe Performing Provider: Chilango Eckert MD Performing Location: [facility] [place] [facility] Documented (not given) by: DINESH Haney on 05/15/24 10:20 Reason Not Given: Patient Refused Coding Level of Care Code Est Pt Prev Care 40-64y(90918) Diagnoses Annual physical exam Z00.00 Severe persistent asthma, unspecified whether complicated J45.50 Asthma complication type: unspecified Ydktt-[id number]-gwaanogqyhj deficiency E88.01 Hypercholesterolemia E78.00 Obesity (BMI 30-39.9) E66.9 Impaired glucose tolerance R73.02 LFT elevation R79.89 Erectile dysfunction, unspecified erectile dysfunction type N52.9 Erectile dysfunction type: unspecified Assessment & Plan Assessment & Plan (1) Annual physical exam: Code(s): Z00.00 - Encounter for general adult medical examination without abnormal findings Category: Medical Plan: Patient is advised to eat healthy, keep well hydrated, keep active and have adequate sleep. (2) Severe persistent asthma: Code(s): J45.50 - Severe persistent asthma, uncomplicated Category: Medical Qualifiers: Asthma complication type: unspecified Qualified Code(s): J45.50 - Severe persistent asthma, uncomplicated Plan: Patient follows up with Pulmonary on albuterol inhaler Wixela, Spiriva (3) Ohwlh-3-qwrcviphvzi deficiency: Code(s): E88.01 - Irjmh-7-cpblqlovjsw deficiency Category: Medical Plan: Continue to follow-up with Pulmonary does receive alpha 1 antitrypsin. (4) Hypercholesterolemia: Code(s): E78.00 - Pure hypercholesterolemia, unspecified Category: Medical Plan: Avoid fried foods, chicken skin, eggs, butter margarine, pastries and meat. Be it pork or beef they have a lot of cholesterol LDL goal of less than 130 and triglyceride of less than 150 (5) Obesity (BMI 30-39.9): Code(s): E66.9 - Obesity, unspecified Category: Medical Plan: Diet and exercise (6) Impaired glucose tolerance: Code(s): R73.02 - Impaired glucose tolerance (oral) Category: Medical Plan: Decrease the amount of carbohydrate intake, pasta, bread, rice and potatoes are all sugar and that is aside from all the sweet stuff, remember that fruits are good but they are Sweet also. (7) LFT elevation: Code(s): R79.89 - Other specified abnormal findings of blood chemistry Category: Medical Plan: Patient is recommended to get ultrasound of the liver as well as follow-up blood work (8) Erectile dysfunction: Code(s): N52.9 - Male erectile dysfunction, unspecified Category: Medical Qualifiers: Erectile dysfunction type: unspecified Qualified Code(s): N52.9 - Male erectile dysfunction, unspecified Plan: testosteron tested and sildenafil scripts sent Orders: Orders Testosterone, Total Today N52.9 - Male erectile dysfunction, unspecified Influenza [id number] Immunization Today Z23 - Encounter for immunization Medications: New albuterol sulfate 90 mcg/actuation 2 inhalations inhalation Q4H PRN 8.5 grams 0RF shortness of breath or wheezing J45.50 - Severe persistent asthma, uncomplicated tiotropium bromide 1.25 mcg/actuation (Spiriva Respimat) 2 puffs inhalation DAILY 4 grams 11RF albuterol sulfate 2.5 mg (3 mL) inhalation Q4H PRN 180 mL 3RF wheezing sildenafil administer 30 minutes to 4 hours before activity 50 mg PO DAILY PRN 14 tabs 1RF sexual activity N52.9 - Male erectile dysfunction, unspecified
[2024-05-15 10:16] VITALS: BP 120/82; BMI 35.0
== END 2024-05-15 10:59 | disposition home or self-care (01) ==
LOC: HO.HMCH 10:06
PROVIDERS: PCP Internal Medicine; Visit Provider Internal Medicine
DX: Z00.00 Encounter for general adult medical examination without abnormal findings (principal); J45.50 Severe persistent asthma, uncomplicated; E88.01 Alpha-1-antitrypsin deficiency; E78.00 Pure hypercholesterolemia, unspecified; Z68.35 Body mass index [BMI] 35.0-35.9, adult; E66.9 Obesity, unspecified; R73.02 Impaired glucose tolerance (oral); N52.9 Male erectile dysfunction, unspecified

== ENCOUNTER → 2024-05-15 10:05 | Outpatient (BNVA) | payer OTHER, SELFPAY | PROVIDERS: PCP Internal Medicine; Visit Provider Internal Medicine ==

== ENCOUNTER 2024-05-26 16:32 | Emergency (ER) | payer OTHER, SELFPAY ==
--- NOTE | ~2024-05-26 | CT_ITS ---
EXAMINATION: CT THORACIC SPINE WITHOUT CONTRAST CLINICAL INFORMATION: Low back pain. Rule out fracture T11. COMPARISON: Lumbar spine radiograph 05/26/2024. TECHNIQUE: Unenhanced CT of the thoracic spine. This CT examination was performed using dose optimization techniques as appropriate, variously including the following: *Automated exposure control *Adjustment of mA and/or kV according to patient size (this includes techniques or standardized protocols for targeted exams where dose is matched to indication/reason for exam; i.e. extremities or head) *Use of iterative reconstruction technique DLP: 883 mGy-cm FINDINGS: No paraspinous soft tissue inflammatory changes identified. Normal appearance of the visualized lungs. No pleural effusions or pneumothoraces identified. Within the visualized mediastinum, no abnormal fluid collections identified. The visualized ribs appear intact. The T11 vertebral body demonstrates minimal anterior endplate osteophytosis similar findings present throughout the thoracic spine. No discrete fracture of the T11 vertebral body is identified. Minimal Schmorl's node type deformities of the superior endplate of T11 are noted. No retropulsion of the T11 vertebral body identified. Minimal facet hypertrophic changes are present in scattered locations within the thoracic spine. CT/CT thoracic spine wo IV con IMPRESSION: *No acute abnormalities identified. *Mild multilevel chronic spondylosis of the thoracic spine. *No evidence of acute T11 fractures. Minimal chronic anterior endplate osteophytosis of T11 and minimal chronic appearing Schmorl's node deformity of the superior endplate of T11. Electronically signed by: Jakub Marquez MD 05/26/2024 11:24 PM [facility]
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
[2024-05-26 16:59] VITALS: BP 132/87; PULSE 77; RESP 18; TEMP 36.9; O2SAT 97; BMI 33.7
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
[2024-05-26 21:12] VITALS: BP 138/85; PULSE 80; RESP 16; TEMP 36.4; O2SAT 98
[2024-05-26] MEDS: Cyclobenzaprine HCl 10 MG TABLET PO (21:58)
[2024-05-26] MEDS: Morphine Sulfate 2 MG/ML CARTRIDGE IM (21:59)
[2024-05-27 00:44] VITALS: BP 140/82; PULSE 82; RESP 18; TEMP 36.4; O2SAT 98
== END 2024-05-27 00:20 | disposition home or self-care (01) ==
PROVIDERS: Emergency Provider Emergency Medicine; PCP Internal Medicine
DX: S39.92XA Unspecified injury of lower back, initial encounter (principal); V73.5XXA Driver of bus injured in collision with car, pick-up truck or van in traffic accident, initial encounter; Y93.9 Activity, unspecified; Y92.410 Unspecified street and highway as the place of occurrence of the external cause; Y99.9 Unspecified external cause status; M54.50 Low back pain, unspecified; J45.50 Severe persistent asthma, uncomplicated; M79.18 Myalgia, other site; Z79.899 Other long term (current) drug therapy
CPT/HCPCS: 72100; 72128; 96372; 99283; 99284; J2270

== ENCOUNTER 2024-05-30 07:31 | Outpatient (REF) | payer OTHER, SELFPAY | END 2024-05-30 07:32 | disposition home or self-care (01) | LOC: HO.US 07:31 | PROVIDERS: PCP Internal Medicine; Visit Provider Internal Medicine | DX: R79.89 Other specified abnormal findings of blood chemistry (principal) | CPT/HCPCS: 76700 ==

== ENCOUNTER 2024-06-12 15:24 | Outpatient (AMB) | payer OTHER, SELFPAY ==
[2024-06-12 15:25] VITALS: BP 130/72; BMI 33.6
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
== END 2024-06-12 16:05 | disposition home or self-care (01) ==
PROVIDERS: PCP Internal Medicine
DX: M54.50 Low back pain, unspecified (principal); M54.2 Cervicalgia

== ENCOUNTER 2024-08-16 15:48 | Outpatient (RCR) | payer OTHER, SELFPAY ==
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
== END 2024-08-17 10:52 | disposition home or self-care (01) ==
LOC: HO.PT 15:48
PROVIDERS: PCP Internal Medicine
DX: M54.50 Low back pain, unspecified (principal); M54.2 Cervicalgia
CPT/HCPCS: 97014; 97110; 97162; 97530; 97535

== ENCOUNTER 2024-08-25 10:25 | Outpatient (REF) | payer OTHER, SELFPAY ==
--- OUTSIDE RECORDS SUMMARY | 2024-08-25 11:17 | XMS_ITS | Encounter Summary ---
Author Organization [facility] [place] [address] Care Team Providers Care Fourth Mate Name Role Phone Jaiden Phillips MD Primary Care Provider + [phone] Reason for Visit * Reason Onset Date Comments Med Refill 08/09/2024 Encounter Details Date Type Department Care Team (Late st Contact Info) Description 08/09/2024 [facility]phone [facility] [place] [address] [phone] Jaelyn Page MD 175 [facility] [address] [place] [address] Med Refill Social History Tobacco Use Types Packs/Day Years [...] PM EST documented as of this encounter Progress Notes * Phill Gupta MA - 08/09/2024 2:44 PM EST MAMADOU 02/23/24 * Yaritza Mckee - 08/09/2024 2:22 PM EST Patient called requesting a refill for his VENTOLIN HFA. Patient stated that he needs his inhaler chad. Please advice documented in this encounter Plan of Treatment Upcoming Encounters Date Type Department Care Team (Late st Contact Info) Description 08/25/2024 1:30 PM EST Appointment [address] [phone] Jaelyn Page MD [address] [address] 08/25/2024 3:30 PM EST Office Visit [facility] - [place] [address] [phone] Jaelyn Page MD [address] [address] 09/01/2024 3:00 PM EST Appointment [address] [phone] 09/08/2024 3:00 PM EST Appointment [address] [phone] 09/15/2024 3:00 PM EST Appointment [address] [phone] documented as of this encounter Visit Diagnoses Not on filedocumented in this encounter Care Teams Fourth Mate Relationship Specialty Start Date End Date Jaiden Phillips MD [address] [place] [address] [address] [place] PCP - General 07/26/23 documented as of this encounter
--- OUTSIDE RECORDS SUMMARY | 2024-08-25 11:17 | XMS_ITS | Encounter Summary ---
Author Organization [facility] [place] [address] Care Team Providers Care Wig Comber Name Role Phone Jaiden Phillips MD Primary Care Provider + [phone] Reason for Visit * Episode Based Medications (Routine) - Authorized Specialty Diagnoses / Procedures Referred By Contbyron t Referred To Contact Diagnoses Xcppg-1-gzufkqeyev inhibitor deficiency (CMS/HCC) Jaelyn Page MD [address] [address] Phone: tel: fax: [facility] [address] [place] [phone] Phone: tel: fax: Referral ID Status Reason Start Date Expiration Date V isits Requested Visits Authorized [id number] Authorized 05/19/2024 05/19/2025 1 99 Encounter Details Date Type Department Care Team (Latest Contact Info) Description 08/18/2024 2:51 PM EST - 08/18/2024 11:59 PM EST Hospital Encounter [facility] [address] [place] [phone] Jaelyn Page MD [address] [address] Kloce-3-srfjydgbwn inhibitor deficiency (CMS/HCC) (Primary Dx) Discharge Disposition: Home or Self Care Social History Tobacco Use Types Packs/Day Years [...] Sign Reading Time Taken Comments Blood Pressure 121/82 08/18/2024 2:55 PM EST Pulse 71 08/18/2024 2:55 PM EST Temperature 36.8 ??C (98.3 ??F) 08/18/2024 2:55 PM ES T Respiratory Rate 18 08/18/2024 2:55 PM EST Oxygen Saturation 99% 08/18/2024 2:55 PM EST Inhaled Oxygen Concentration - - Weight 115 kg (253 lb 9.6 oz) 08/18/2024 2:55 PM EST Height - - Body Mass Index 34.39 03/10/2024 2:48 PM EDT documented in this encounter Medications at Time of Discharge albuterol 2.5 mg /3 mL (0.083 %) nebulizer solution Inhale 3 mL (2.5 mg total). 05/26/2020 albuterol HFA (Ventolin HFA) 90 mcg/actuation inhaler Inhale 2 puffs by mouth every 6 (six) hours if needed for wheezing. 6.7 g 11 08/09/2024 cyclobenzaprine (FLEXERIL) 10 mg tablet PLEASE SEE ATTACHED FOR DETAILED DIRECTIONS 06/12/2024 Denta 5000 Plus 1.1 % cream USE DENTAL CREAM TO BRUSH TEETH DAILY - ONCE IN THE MORNING AND ONCE AT NIGHT BEFORE BEDTIME. 09/10/2023 fluticasone propion-salmeter oL (ADVAIR DISKUS) 500-50 mcg/dose diskus inhaler Inhale 1 puff by mouth. 02/18/2024 ibuprofen (ADVIL,MOTRIN) 800 mg tablet Take 1 tablet (800 mg total) by mouth 3 (three) times a day if needed. for pain 05/27/2024 meloxicam (MOBIC) 15 mg tablet Take 1 tablet (15 mg total) by mouth 1 (one) time each day. 06/11/2024 sildenafiL (VIAGRA) 50 mg tablet PLEASE SEE ATTACHED FOR DETAILED DIRECTIONS 07/04/2024 tiotropium (Spiriva Respimat) 1.25 mcg/actuation inhalation spray INHALE 2 PUFFS INTO THE LUNGS DAILY FOR 30 DAYS. 11/16/2021 documented as of this encounter Discharge Disposition Disposition Code Departure Means Destination Home or Self Care documented in this encounter Progress Notes * Shira Espino RN - 08/18/2024 3:00 PM EST 1500 Patient arrives ambulatory for scheduled infusion. No acute health concerns at this time, pt is in is usual state of health. Vitals obtained and pt weighed. Comfortable chairside. 1505 Peripheral IV started in right forearm, NS infusion running. 1545 Infusion completed with no adverse reaction. Peripheral IV removed without incident. Dry dressing applied. Pt ambulated off unit in stable condition. Next appointments in place documented in this encounter Plan of Treatment Upcoming Encounters Date Type Department Care Team (Late st Contact Info) Description 08/25/2024 1:30 PM EST Appointment [facility] [address] [place] [phone] Jaelyn Page MD [address] [address] 08/25/2024 3:30 PM EST Office Visit [facility] [place] [address] [phone] Jaelyn Page MD [address] [address] 09/01/2024 3:00 PM EST Appointment [facility] [address] [place] [phone] 09/08/2024 3:00 PM EST Appointment [facility] [address] [phone] 09/15/2024 3:00 PM EST Appointment [facility] [address] [phone] documented as of this encounter Visit Diagnoses Diagnosis Uobcm-1-xdrqptvgjj inhibitor deficiency (CMS/HCC)- Primary Wmani-0-cuzhnyebaym deficiency documented in this encounter Administered Medications Inactive Administered Medications - up to 3 most recent administrations Medication Order MAR Action Action Date Dose Rate Site alpha1-proteinase inhibitor (human) injection 6,900 mg 6,900 mg, intravenous, Administer over 15 Minutes, Once, On Wed08/18/24 at 1515, For 1 dose, weeklyIndications:Rphkx-3-iewwft nase inhibitor deficiency (CMS/HCC) New Bag 08/18/2024 3:26 PM EST 6,900 mg documented in this encounter Orders Medications Ordered That Mike ht Not Have Been Administered Count Last Ordered Date First Ordered Date sodium chloride 0.9 % infusion 1 08/18/2024 Nursing Count Last Ordered Date First Orde red Date ONC NURSING COMMUNICATION 1 08/18/2024 ONC NURSING COMMUNICATION 5 1 08/18/2024 ONC NURSING COMMUNICATION 9 1 08/18/2024 TREATMENT CONDITIONS 1 08/18/2024 Appointment Requests Count Last Ordered Date Fi rst Ordered Date ONCBCN INFUSION APPOINTMENT REQUEST 03 1 documented in this encounter Care Teams Wig Comber Relationship Specialty Start Date End Date Jaiden Phillips MD [address] [place] [address] Dr [address] [place] PCP - General 07/26/23 documented as of this encounter
--- OUTSIDE RECORDS SUMMARY | 2024-08-25 11:17 | XMS_ITS | Encounter Summary ---
Author Organization [facility] [place] [address] Care Team Providers Care Manager Sign Name Role Phone Jaiden Phillips MD Primary Care Provider + [phone] Reason for Visit * Episode Based Medications (Routine) - Authorized Specialty Diagnoses / Procedures Referred By Contbyron t Referred To Contact Diagnoses Xztzu-5-cfffpjxffr inhibitor deficiency (CMS/HCC) Jaelyn Page MD [address] [address] Phone: tel: fax: [facility] [address] [place] [phone] Phone: tel: fax: Referral ID Status Reason Start Date Expiration Date V isits Requested Visits Authorized [id number] Authorized 05/19/2024 05/19/2025 1 99 Encounter Details Date Type Department Care Team (Latest Contact Info) Description 07/28/2024 2:17 PM EST - 07/28/2024 11:59 PM EST Hospital Encounter [facility] [address] [place] [phone] Jaelyn Page MD [address] [address] Yqylo-2-ixnqfwsmsf inhibitor deficiency (CMS/HCC) (Primary Dx) Discharge Disposition: [...] Sign Reading Time Taken Comments Blood Pressure 128/78 07/28/2024 2:25 PM EST Pulse 75 07/28/2024 2:25 PM EST Temperature 36.8 ??C (98.3 ??F) 07/28/2024 2:25 PM ES T Respiratory Rate - - Oxygen Saturation 99% 07/28/2024 2:25 PM EST Inhaled Oxygen Concentration - - Weight 115 kg (254 lb) 07/28/2024 2:25 PM EST Height - - Body Mass Index 34.45 03/10/2024 2:48 PM EDT documented in this encounter Medications at Time of Discharge albuterol 2.5 mg /3 mL (0.083 %) nebulizer solution Inhale 3 mL (2.5 mg total). 05/26/2020 cyclobenzaprine (FLEXERIL) 10 mg tablet PLEASE SEE [...] documented in this encounter Progress Notes * Giovana Key RN - 07/28/2024 2:30 PM EST Arrived amb for prolastin C, feeling well today, stable assessment. PIV placed. 1520 Prolastin C infusion completed, run over 15 min, pt is feeling well, has next appt in place. Left amb. Stable at D/C. documented in this encounter Plan of Treatment Upcoming Encounters Date Type Department Care Team (Late st Contact Info) Description 08/25/2024 1:30 PM EST Appointment [address] [phone] Jaelyn Page MD [address] [address] 08/25/2024 3:30 PM EST Office Visit [facility] - [place] [address] [phone] Jaelyn Page MD [address] [address] 09/01/2024 3:00 PM EST Appointment [facility] [address] [place] [phone] 09/08/2024 3:00 PM EST Appointment [address] [phone] 09/15/2024 3:00 PM EST Appointment [address] [phone] documented as of this encounter Visit Diagnoses Diagnosis Ftcyr-8-lzwyxuupqc inhibitor deficiency (CMS/HCC)- Primary Ufhrz-8-iovuzymyrkc deficiency documented in this encounter Administered Medications Inactive Administered Medications - up to 3 most recent administrations Medication Order MAR Action Action Date Dose Rate Site alpha1-proteinase inhibitor (human) injection 6,900 mg 6,900 mg, intravenous, at 552 mL/hr, Administer over 15 Minutes, Once, On Wed07/28/24 at 1445, For 1 dose, weeklyIndications:Alpha-1-p roteinase inhibitor deficiency (CMS/HCC) New Bag 07/28/2024 3:03 PM EST 6,900 mg 552 mL/hr documented in this encounter Orders Medications Ordered That Mike ht Not Have Been Administered Count Last Ordered Date First Ordered Date alpha1-proteinase inhibitor (human) injection 6,900 mg 1 07/28/2024 Appointment Requests Count Last Ordered Date Fi rst Ordered Date ONCBCN INFUSION APPOINTMENT REQUEST 03 documented in this encounter Care Teams Manager Sign Relationship Specialty Start Date End Date Jaiden Phillips MD [address] [place] [address] Dr [address] [place], [place] PCP - General 07/26/23 documented as of this encounter
--- OUTSIDE RECORDS SUMMARY | 2024-08-25 11:17 | XMS_ITS | Clinical Summary ---
Author Organization [facility] Address [address] [place] [address] Care Team Providers Care Gas Pipe Layer Name Role Phone Jaiden Phillips MD Primary Care Provider [phone] Allergies No known active allergies Medications Medication Sig Dispensed Refills Start Date End Date Status albuterol (PROVENTIL) (2.5 MG/3ML) 0.083% nebulizer solution INHALE 1 VIAL BY NEBULIZATION EVERY 6 HOURS NEEDED FOR WHEEZING FOR UP TO 30 DAYS. 0 05/26/2020 Active albuterol (PROVENTIL) (2.5 MG/3ML) 0.083% nebulizer solution INHALE 1 VIAL BY NEBULIZATION EVERY 6 HOURS NEEDED FOR WHEEZING FOR UP TO 30 DAYS. 0 11/20/2021 Active montelukast (SINGULAIR) 10 MG tablet Take by mouth. 0 01/26/2020 Active Spiriva Respimat 1.25 MCG/ACT AERS INHALE 2 PUFFS INTO THE LUNGS DAILY FOR 30 DAYS. 0 11/16/2021 Active Active Problems Problem Noted Date Diagnosed Date Nwyaj-8-ebuwjunwnw inhibitor deficiency 12/06/19 22 Social History Tobacco Use Types Packs/Day Years Used Date Smoking Tobacco: Never Assessed Sex and Gender Information Value Date Recorded Sex Assigned at Male 02/24/2022 12:56 PM EDT Gender Identity Male 06/19/2022 3:02 PM EST Sexual Orientation Straight 06/19/2022 3: 02 PM EST Job Start Date Occupation Industry Not on file Not on file Not on file Last Filed Vital Signs Vital Sign Reading Time Taken Comments Blood Pressure 128/77 05/12/2024 3:00 PM EDT Pulse 98 05/12/2024 3:00 PM EDT Temperature 36.4 ??C (97.6 ??F) 05/12/2024 3:00 PM ED T Respiratory Rate 18 05/05/2024 2:55 PM EDT Oxygen Saturation 98% 05/12/2024 3:00 PM EDT Inhaled Oxygen Concentration - - Weight 117.8 kg (259 lb 11.2 oz) 05/12/2024 3:00 PM EDT Height 182.9 cm (6') 03/10/2024 2:48 PM EDT Body Mass Index 35.22 03/10/2024 2:48 PM EDT Plan of Treatment Health Maintenance Due Date Last Done Comments Hepatitis B Vaccines (1 of 3 - 3-dose series) 1979 Hepatitis C Screening 1979 Depression Screening 1991 BMI Counseling 12/23/1997 Preventative Health Evaluation 12/23/1997 DTap / Tdap / Td (1 - Tdap) 12/23/1998 Pneumococcal Vaccine (2 of 2 - PCV) 08/23/2018 08/23/2017 COVID-19 Vaccine (4 - 2023-2 5 season) 2024 06/28/2021, 08/28/2020, 08/06/2020 Influenza Vaccine (#1) 2024 8, 08/20/2010 RSV Ped < 20 months Aged Out No longe r eligible based on patient's age to complete this topic Care Teams Gas Pipe Layer Relationship Specialty Start Date End Date Jaiden Phillips MD [address] [place] [address] Dr Jessica [place] [phone] PCP - General Internal Medicine 07/26/23
--- OUTSIDE RECORDS SUMMARY | 2024-08-25 11:17 | XMS_ITS | Encounter Summary ---
Author Organization [facility] [place] [address] Care Team Providers Care State Pilot Name Role Phone Jaiden Phillips MD Primary Care Provider + [phone] Reason for Visit * Episode Based Medications (Routine) - Authorized Specialty Diagnoses / Procedures Referred By Contbyron t Referred To Contact Diagnoses Hyaxr-5-mpxuitxnpm inhibitor deficiency (CMS/HCC) Jaelyn Page MD [address] [address] Phone: tel: fax: [facility] [address] [place] [phone] Phone: tel: fax: Referral ID Status Reason Start Date Expiration Date V isits Requested Visits Authorized [id number] Authorized 05/19/2024 05/19/2025 1 99 Encounter Details Date Type Department Care Team (Latest Contact Info) Description 08/11/2024 2:57 PM EST - 08/11/2024 11:59 PM EST Hospital Encounter [facility] [address] [place] [phone] Jaelyn Page MD [address] [address] Ckbvk-8-cypaoypldh inhibitor deficiency (CMS/HCC) (Primary Dx) Discharge Disposition: [...] Sign Reading Time Taken Comments Blood Pressure 131/89 08/11/2024 3:03 PM EST Pulse 85 08/11/2024 3:03 PM EST Temperature 36.6 ??C (97.9 ??F) 08/11/2024 3:03 PM ES T Respiratory Rate - - Oxygen Saturation 99% 08/11/2024 3:03 PM EST Inhaled Oxygen Concentration - - Weight 116 kg (255 lb) 08/11/2024 3:03 PM EST Height - - Body Mass Index 34.58 03/10/2024 2:48 PM EDT documented in this [...] documented in this encounter Progress Notes * Luis Angel Ely RN - 08/11/2024 3:00 PM ESTEncounter addended by: Luis Angel Ely RN on: 08/11/2024 4:45 PM Actions taken: Flowsheet accepted, Clinical Note Signed, Problem List reviewed, Allergies reviewed,Medication List reviewed, Charge Capture section accepted * Luis Angel Ely RN - 08/11/2024 3:00 PM EST Pt arrives for weekly prolastin infusion. Denies any acute issues. Pt rested during infusion over 15 minutes per patient preference. Pt has tolerated rate in past. Flushed line until clear. Pt stableupon discharge with apts in place. documented in this encounter Plan of Treatment Upcoming Encounters Date Type Department Care Team (Late st Contact Info) Description 08/25/2024 1:30 PM EST Appointment [facility] [address] [facility] 2nd [place] [phone] Jaelyn Page MD [address] [address] 08/25/2024 3:30 PM EST Office Visit Pulmonolgy - [place] [address] [phone] Jaelyn Page MD [address] [address] 09/01/2024 3:00 PM EST Appointment [facility] [address] [phone] 09/08/2024 3:00 PM EST Appointment [facility] [address] [phone] 09/15/2024 3:00 PM EST Appointment [facility] [address] [phone] documented as of this encounter Visit Diagnoses Diagnosis Ozldd-3-ztpmotvjtj inhibitor deficiency (CMS/HCC)- Primary Cyzlc-2-gaasmvqiays deficiency documented in this encounter Administered Medications Inactive Administered Medications - up to 3 most recent administrations Medication Order MAR Action Action Date Dose Rate Site alpha1-proteinase inhibitor (human) injection 6,900 mg 6,900 mg, intravenous, at 552 mL/hr, Administer over 15 Minutes, Once, On Wed08/11/24 at 1530, For 1 dose, weeklyIndications:Alpha-1-p roteinase inhibitor deficiency (CMS/HCC) New Bag 08/11/2024 3:34 PM EST 6,900 mg 552 mL/hr documented in this encounter Orders Medications Ordered That Mike ht Not Have Been Administered Count Last Ordered Date First Ordered Date alpha1-proteinase inhibitor (human) injection 6,900 mg 1 08/11/2024 Nursing Count Last Ordered Date First Orde red Date ONC NURSING COMMUNICATION 1 08/11/2024 ONC NURSING COMMUNICATION 5 1 08/11/2024 ONC NURSING COMMUNICATION 9 1 08/11/2024 TREATMENT CONDITIONS 1 08/11/2024 Appointment Requests Count Last Ordered Date Fi rst Ordered Date ONCBCN INFUSION APPOINTMENT REQUEST 03 documented in this encounter Care Teams State Pilot Relationship Specialty Start Date End Date Jaiden Phillips MD [address] [place] [address] [address] [place] PCP - General 07/26/23 documented as of this encounter
--- OUTSIDE RECORDS SUMMARY | 2024-08-25 11:17 | XMS_ITS | Clinical Summary ---
Author Organization [facility] Address [address] [place] [address] Phone Care Team Providers Care Rectifying Attendant Name Role Phone Jaiden Phillips MD Primary Care Provider Allergies No known active allergies Medications albuterol 2.5 mg /3 mL (0.083 %) nebulizer solution Inhale 3 mL (2.5 mg total). 0 Active tiotropium (Spiriva Respimat) 1.25 mcg/actuation inhalation spray INHALE 2 PUFFS INTO THE LUNGS DAILY FOR 30 DAYS. 2 Active cyclobenzaprine (FLEXERIL) 10 mg tablet PLEASE SEE ATTACHED FOR DETAILED DIRECTIONS 4 Active Denta 5000 Plus 1.1 % cream USE DENTAL CREAM TO BRUSH TEETH DAILY - ONCE IN THE MORNING AND ONCE AT NIGHT BEFORE BEDTIME. 4 Active sildenafiL (VIAGRA) 50 mg tablet PLEASE SEE ATTACHED FOR DETAILED DIRECTIONS 4 Active meloxicam (MOBIC) 15 mg tablet Take 1 tablet (15 mg total) by mouth 1 (one) time each day. 4 Active ibuprofen (ADVIL,MOTRIN) 800 mg tablet Take 1 tablet (800 mg total) by mouth 3 (three) times a day if needed. for pain 4 Active fluticasone propion-salmete roL (ADVAIR DISKUS) 500-50 mcg/dose diskus inhaler Inhale 1 puff by mouth. 4 Active albuterol HFA (Ventolin HFA) 90 mcg/actuation inhaler Inhale 2 puffs by mouth every 6 (six) hours if needed for wheezing. 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 22 Severe persistent asthma without complication Encounters Date Type Department Care Team Description 08/18/2024 2:51 PM EST - 08/18/2024 11:59 PM EST Hospital Encounter [address] [phone] Jaelyn Page MD Tbkrj-7-nofqrypdjs inhibitor deficiency (CMS/HCC) (Primary Dx) Discharge Disposition: Home or Self Care 08/11/2024 2:57 PM EST - 08/11/2024 11:59 PM EST Hospital Encounter [address] [phone] Jaelyn Page MD Fhuqk-5-amhhzqalli inhibitor deficiency (CMS/HCC) (Primary Dx) Discharge Disposition: Home or Self Care 08/09[facility] [address] [place] [phone] Jaelyn Page MD Med Refill 08/04/2024 3:00 PM EST - 08/04/2024 11:59 PM EST Hospital Encounter [address] [phone] Jaelyn Page MD Fdsql-0-hvbdqwujws inhibitor deficiency (CMS/HCC) (Primary Dx) Discharge Disposition: Home or Self Care 07/28/2024 2:17 PM EST - 07/28/2024 11:59 PM EST Hospital Encounter [address] [phone] Jaelyn Page MD Fnauo-0-paajedcnmu inhibitor deficiency (CMS/HCC) (Primary Dx) Discharge Disposition: Home or Self Care 07/21/2024 2:53 PM EST - 07/21/2024 11:59 PM EST Hospital Encounter [facility] [address] [place] [phone] Jaelyn Page MD Yrpgn-8-ccpqtyahsr inhibitor deficiency (CMS/HCC) (Primary Dx) Discharge Disposition: Home or Self Care 07/14/2024 2:33 PM EST - 07/14/2024 11:59 PM EST Hospital Encounter [facility] [address] [place] [phone] Uduid-9-tojozjnyxj inhibitor deficiency (CMS/HCC) (Primary Dx) Discharge Disposition: Home or Self Care 07/07/2024 2:34 PM EST - 07/07/2024 11:59 PM EST Hospital Encounter [facility] [address] [place] [phone] Lvqih-9-blzltcowgx inhibitor deficiency (CMS/HCC) (Primary Dx) Discharge Disposition: Home or Self Care 06/30/2024 2:31 PM EST - 06/30/2024 11:59 PM EST Hospital Encounter [facility] [address] [place] [phone] Fzmtz-4-xjzmqbtilx inhibitor deficiency (CMS/HCC) (Primary Dx) Discharge Disposition: Home or Self Care 06/23/2024 2:48 PM EST - 06/23/2024 11:59 PM EST Hospital Encounter [facility] [address] [place] [phone] Zwdjf-7-bzkhfuptaa inhibitor deficiency (CMS/HCC) (Primary Dx) Discharge Disposition: Home or Self Care 06/16/2024 2:54 PM EST - 06/16/2024 11:59 PM EST Hospital Encounter [facility] [address] [place] [phone] Yffiz-6-lqvbpxzzvz inhibitor deficiency (CMS/HCC) (Primary Dx) Discharge Disposition: Home or Self Care 06/09/2024 2:40 PM EST - 06/09/2024 11:59 PM EST Hospital Encounter [facility] [address] [place] [phone] Etfqt-0-fzvkszpfdn inhibitor deficiency (CMS/HCC) (Primary Dx) Discharge Disposition: Home or Self Care 06/02/2024 8:08 AM EST - 06/02/2024 11:59 PM EST Hospital Encounter [facility] [address] [phone] Qsxbe-4-wiuowjoozq inhibitor deficiency (CMS/HCC) (Primary Dx) Discharge Disposition: Home or Self Care 05/26/2024 2:40 PM EST - 05/26/2024 11:59 PM EST Hospital Encounter [facility] [address] [place] [phone] Npurc-7-rjjmrcpvob inhibitor deficiency (CMS/HCC) (Primary Dx) Discharge Disposition: Home or Self Care from Last 3 Months Family History Medical History Relation Name Comments Asthma Brother 1 Other: pancreatitis Father Depression Mother Relation Name Status Comments Brother 1 Brother 2 Father Alive Mother Alive Sister Alive Social History Tobacco Use Types Packs/Day Years Used Date Smoking Tobacco: Former Smokeless Tobacco: Never Quit: 07/12/2015 Tobacco Cessation:Counseling Given: Not Answered Alcohol Use Standard Drinks/Week Comments No 0 (1 standard drink = 0.6 oz pur e alcohol) Sex and Gender Information Value Date Recorded Sex Assigned at Male 08/18/2024 2:50 PM EST Legal Sex Male 4:09 PM EST Gender Identity Male 08/18/2024 2:50 PM EST Sexual Orientation Straight 08/18/2024 2: 50 PM EST Obstetrics History Last Filed Vital Signs Vital Sign Reading [...] 9.6 oz) 08/18/2024 2:55 PM EST Height 182.9 cm (6') 03/10/2024 2:48 PM EDT Body Mass Index 34.39 03/10/2024 2:48 PM EDT Plan of Treatment Upcoming Encounters Date Type Department Care Team (Late st Contact Info) Description 08/25/2024 1:30 PM EST Appointment [address] [phone] Jaelyn Page MD [address] [address] 08/25/2024 3:30 PM EST Office Visit Pulmonolgy - [place] [address] [phone] Jaelyn Page MD [address] [address] 09/01/2024 3:00 PM EST Appointment [address] [phone] 09/08/2024 3:00 PM EST Appointment [facility] [address] [place] [phone] 09/15/2024 3:00 PM EST Appointment [address] [phone] Health Maintenance Due Date Last Done Comments DTaP,Tdap,and Td Vaccines (1 - Tdap) 12/23/1998 Hepatitis A Vaccines (1 of 2 - Risk 2-dose series) 12/23/1998 Hepatitis B Vaccines (1 of 3 - 19+ 3-dose series) 12/23/1998 Pneumococcal Vaccine: Pediatrics (0 to 5 Years) and At-Risk Patients (6 to 64 Years) (1 of 2 - PCV) 12/23/1998 Cholesterol Screening (Lipid Panel) 06/20/2022 Depression Screening 06/20/2022 HIV Screening 06/20/2022 Hepatitis C Screening 06/20/2022 Social Influencers of Health Screening 06/20/2022 COVID-19 Vaccine (4 - 2023-2 5 season) 2024 06/28/2021, 08/28/2020, 08/06/2020 Influenza Vaccine (#1) 2024 HIB Vaccines Aged Out No longer eligi ble based on patient's age to complete this topic HPV Vaccines Aged Out No longer eligi ble based on patient's age to complete this topic IPV Vaccines Aged Out No longer eligi ble based on patient's age to complete this topic MMR Vaccines Aged Out No longer eligi ble based on patient's age to complete this topic Meningococcal ACWY Vaccine Aged Out N o longer eligible based on patient's age to complete this topic Meningococcal B Vacine Aged Out No lo nger eligible based on patient's age to complete this topic RSV Immunization Patients Under 20 months Aged Out No longer eligible b ased on patient's age to complete this topic Varicella Vaccines Aged Out No longer eligible based on patient's age to complete this topic Insurance Care Teams Rectifying Attendant Relationship Specialty Start Date End Date Jaiden Phillips MD [address] [place] [address] Dr [address] [place] PCP - General 07/26/23
--- OUTSIDE RECORDS SUMMARY | 2024-08-25 11:17 | XMS_ITS | Encounter Summary ---
Author Organization [facility] [place] [address] Care Team Providers Care Early Head Start Director Name Role Phone Jaiden Phillips MD Primary Care Provider + [phone] Reason for Visit * Reason Comments OP Infusion Prolastin * Episode Based Medications (Routine) - Authorized Specialty Diagnoses / Procedures Referred By Contac t Referred To Contact Diagnoses Pvawo-1-mbjhsxarws inhibitor deficiency (CMS/HCC) Jaelyn Page MD [address] [address] Phone: tel: fax: [facility] [address] [place] [phone] Phone: tel: fax: Referral ID Status Reason Start Date Expiration Date V isits Requested Visits Authorized [id number] Authorized 05/19/2024 05/19/2025 1 99 Encounter Details Date Type Department Care Team (Latest Contact Info) Description 08/04/2024 3:00 PM EST - 08/04/2024 11:59 PM EST Hospital Encounter [facility] [address] [place] [phone] Jaelyn Page MD [address] [address] Tlzre-8-lktokvncch inhibitor deficiency (CMS/HCC) (Primary Dx) Discharge Disposition: [...] Sign Reading Time Taken Comments Blood Pressure 141/89 08/04/2024 3:16 PM EST Pulse 77 08/04/2024 3:16 PM EST Temperature 36.4 ??C (97.6 ??F) 08/04/2024 3:16 PM ES T Respiratory Rate 18 08/04/2024 3:16 PM EST Oxygen Saturation 99% 08/04/2024 3:16 PM EST Inhaled Oxygen Concentration - - Weight 115 kg (254 lb) 08/04/2024 3:16 PM EST Height - - Body Mass [...] documented in this encounter Progress Notes * Lisa Mohan RN - 08/04/2024 3:00 PM EST Joseph arrives ambulatory for Prolastin infusion. Patient well appearing with no voiced complaints/concerns. Stable assessment completed. IV placed to left arm. Med released to pharmacy. Patient resting comfortably on recliner with call valladares in reach. 1630- Infusion completed - pt tolerated with no issues noted. IV flushed and removed intact. Patient has appts in place. Stable upon discharge. documented in this encounter Plan of Treatment Upcoming Encounters Date Type Department Care Team (Late st Contact Info) Description 08/25/2024 1:30 PM EST Appointment [address] [phone] Jaelyn Page MD [address] [address] 08/25/2024 3:30 PM EST Office Visit Pulmonolgy - [place] [address] [phone] Jaelyn Page MD [address] [address] 09/01/2024 3:00 PM EST Appointment [facility] [address] [place] [phone] 09/08/2024 3:[address] [facility] [address] [place] [phone] 09/15/2024 3:00 PM EST Appointment [facility] [address] [place] [address] documented as of this encounter Visit Diagnoses Diagnosis Kszea-0-lfjhiokore inhibitor deficiency (CMS/HCC)- Primary Yevky-0-sqwkhoowawl deficiency documented in this encounter Administered Medications Inactive Administered Medications - up to 3 most recent administrations Medication Order MAR Action Action Date Dose Rate Site alpha1-proteinase inhibitor (human) injection 6,900 mg 6,900 mg, intravenous, at 552 mL/hr, Administer over 15 Minutes, Once, On Wed08/04/24 at 1545, For 1 dose, weeklyIndications:Alpha-1-p roteinase inhibitor deficiency (CMS/HCC) New Bag 08/04/2024 3:57 PM EST 6,900 mg 552 mL/hr documented in this encounter Historical Medications * This list may reflect changes made after this encounter. fluticasone propion-salmeter oL (ADVAIR DISKUS) 500-50 mcg/dose [...] PLEASE SEE ATTACHED FOR DETAILED DIRECTIONS 07/04/2024 Denta 5000 Plus 1.1 % cream USE DENTAL CREAM TO BRUSH TEETH DAILY - ONCE IN THE MORNING AND ONCE AT NIGHT BEFORE BEDTIME. 09/10/2023 cyclobenzaprine (FLEXERIL) 10 mg tablet PLEASE SEE ATTACHED FOR DETAILED DIRECTIONS 06/12/2024 added in this encounter Orders Nursing Count Last Ordered Date First Orde red Date ONC NURSING COMMUNICATION 1 08/04/2024 ONC NURSING COMMUNICATION 5 08/04/2024 ONC NURSING COMMUNICATION 9 08/04/2024 TREATMENT CONDITIONS 1 08/04/2024 Appointment Requests Count Last Ordered Date Fi rst Ordered Date ONCBCN INFUSION APPOINTMENT REQUEST 03 documented in this encounter Care Teams Early Head Start Director Relationship Specialty Start Date End Date Jaiden Phillips MD [address] [place] PCP - General 07/26/23 documented as of this encounter
--- OUTSIDE RECORDS SUMMARY | 2024-08-25 11:17 | XMS_ITS | Encounter Summary ---
Author Organization [facility] [place] [address] Care Team Providers Care Glue Plant Operator Name Role Phone Jaiden Phillips MD Primary Care Provider + [phone] Encounter Details Date Type Department Care Team [...] Info) Description 08/25/2024 1:[address] [facility] [address] [place] [phone] Jaelyn Page MD [address] [address] 08/25/2024 3:30 PM EST Office Visit Pulmonolgy - [place] [address] [phone] Jaelyn Page MD [address] [address] 09/01/2024 3:[address] [facility] [address] [place] [phone] 09/08/2024 3:00 PM EST Appointment [facility] [address] [place] [phone] 09/15/2024 3:00 PM EST Appointment [facility] [address] [place] [phone] documented as of this encounter Visit Diagnoses Not on filedocumented in this encounter Care Teams Glue Plant Operator Relationship Specialty Start Date End Date Jaiden Phillips MD [address] [place] [address] [address] [place], [place] PCP - General 07/26/23 documented as of this encounter
--- OUTSIDE RECORDS SUMMARY | 2024-08-25 11:17 | XMS_ITS | Encounter Summary ---
Author Organization [facility] [place] [address] Care Team Providers Care Cloth Folder Machine Name Role Phone Jaiden Phillips MD Primary Care Provider + [phone] Encounter Details Date Type Department Care Team [...] Info) Description 08/25/2024 1:30 PM EST Appointment [facility] [address] [place] [phone] Jaelyn Page MD [address] [address] 08/25/2024 3:30 PM EST Office Visit Pulmonolgy - [place] [address] [phone] Jaelyn Page MD [address] [address] 09/01/2024 3:00 PM EST Appointment [facility] [address] [place] [phone] 09/08/2024 3:00 PM EST Appointment [facility] [address] [place] [phone] 09/15/2024 3:00 PM EST Appointment [facility] [address] [place] [phone] documented as of this encounter Visit Diagnoses Not on filedocumented in this encounter Care Teams Cloth Folder Machine Relationship Specialty Start Date End Date Jaiden Phillips MD [address] [place] [address] [address] [place], [place] PCP - General 07/26/23 documented as of this encounter
--- OUTSIDE RECORDS SUMMARY | 2024-08-25 11:18 | XMS_ITS | Encounter Summary ---
Author Organization [facility] [place] [address] Care Team Providers Care Data Collection Associate Name Role Phone Jaiden Phillips MD Primary Care Provider + [phone] Encounter Details Date Type Department Care Team [...] Info) Description 08/25/2024 1:30 PM EST Appointment [address] [phone] Jaelyn Page MD [address] [address] 08/25/2024 3:30 PM EST Office Visit Pulmonol - [place] [address] [phone] Jaelyn Page MD [address] [address] 09/01/2024 3:00 PM EST Appointment [address] [phone] 09/08/2024 3:00 PM EST Appointment [facility] [address] [place] [phone] 09/15/2024 3:00 PM EST Appointment [facility] [address] [place] [phone] documented as of this encounter Visit Diagnoses Not on filedocumented in this encounter Care Teams Data Collection Associate Relationship Specialty Start Date End Date Jaiden Phillips MD [address] [place] [address] [address] [place], [place] PCP - General 07/26/23 documented as of this encounter
--- OUTSIDE RECORDS SUMMARY | 2024-08-25 11:18 | XMS_ITS | Encounter Summary ---
Author Organization [facility] [place] [address] Care Team Providers Care Head Mva Reactor Operator Name Role Phone Jaiden Phillips MD Primary Care Provider + [phone] Encounter Details Date Type Department Care Team [...] Info) Description 08/25/2024 1:30 PM EST Appointment [facility] [address] [place] [phone] Jaelyn Page MD [address] [address] 08/25/2024 3:30 PM EST Office Visit Pulmonolgy - [place] [address] [phone] Jaelyn Page MD [address] [address] 09/01/2024 3:00 PM EST Appointment [facility] [address] [place] [phone] 09/08/2024 3:00 PM EST Appointment [facility] [address] [place] [phone] 09/15/2024 3:00 PM EST Appointment [facility] [address] [place] [phone] documented as of this encounter Visit Diagnoses Not on filedocumented in this encounter Care Teams Head Mva Reactor Operator Relationship Specialty Start Date End Date Jaiden Phillips MD [address] [place] [address] [place], [place] [address] PCP - General 07/26/23 documented as of this encounter
--- OUTSIDE RECORDS SUMMARY | 2024-08-25 11:18 | XMS_ITS | Encounter Summary ---
Author Organization [facility] [place] [address] Care Team Providers Care Cinder Crane Operator Name Role Phone Jaiden Phillips MD Primary Care Provider + [phone] Encounter Details Date Type Department Care Team [...] Info) Description 08/25/2024 1:30 PM EST Appointment [facility] [address] [place] [phone] Jaelyn Page MD [address] [address] 08/25/2024 3:30 PM EST Office Visit Pulmonolgy - [place] [address] [phone] Jaelyn Page MD [address] [address] 09/01/2024 3:00 PM EST Appointment [facility] [address] [place] [phone] 09/08/2024 3:00 PM EST Appointment [facility] [address] [place] [phone] 09/15/2024 3:00 PM EST Appointment [facility] [address] [place] [phone] documented as of this encounter Visit Diagnoses Not on filedocumented in this encounter Care Teams Cinder Crane Operator Relationship Specialty Start Date End Date Jaiden Phillips MD [address] [place] [address] [address] [place], [place] PCP - General 07/26/23 documented as of this encounter
[2024-08-25 12:08] LABS: Alanine Aminotransferase 34 U/L (0-40); Albumin Level 4.6 g/dL (3.5-5.0); Alkaline Phosphatase 61 U/L (39-117); Aspartate Amino Transferase 25 U/L (5-37); Bilirubin Direct 0.2 mg/dL (0.0-0.5); Bilirubin Total 0.9 mg/dL (0.0-1.0); Total Protein 7.8 g/dL (6.5-8.0)
[2024-08-25 12:14] LABS: HBS Num1 0.84 mIU/mL (0-7.99); HBc Num1 0.11 S/CO (0.00-0.79); HBsAGNum1 0.27 S/CO (0.00-0.99); Hepatitis B Core Antibody Nonreactive (Nonreactive); Hepatitis B Surface Antigen Negative (Negative); ~HepC Num1 0.25 S/CO (0.00-0.79); ~Hepatitis B Surface Antibody NONREACTIVE (Nonreactive); ~Hepatitis C Antibody Nonreactive (Nonreactive)
[2024-09-01 13:38] LABS: Testosterone, Total 321 ng/dL (250-1100)
== END 2024-08-25 10:26 | disposition home or self-care (01) ==
LOC: HO.LAB 10:25
PROVIDERS: PCP Internal Medicine; Visit Provider Internal Medicine
DX: N52.9 Male erectile dysfunction, unspecified (principal); R79.89 Other specified abnormal findings of blood chemistry
CPT/HCPCS: 36415; 80076; 84403; 86704; 86706; 86803; 87340

== ENCOUNTER 2024-08-31 15:32 | Outpatient (AMB) | payer OTHER, SELFPAY ==
--- NOTE | 2024-08-31 15:38 | A.OFFPC_ITS ---
Vital Signs 08/31/24 15:40 Height 6 ft 1 in Weight 251 lb BMI 33.1 BP 120/80 Blood Pressure Location Lt brachial Position Sitting Pulse 93 Pulse Source Pulse Oximeter Temp 97.5 F Temp Source Temporal Artery Scan Pulse Oximetry (%) 97 Oxygen Delivery Method Room Air Intake Visit Reasons: COPD, LFT elevation Intake Note: Patient is here to follow up on COPD, LFT Elevation, requesting lab results . Combined Rail Operator Required: No Sports Anchor: Not Required per policy Accompanied by: Self / Same As Patient Allergies No Known Allergies Allergy (Verified 08/31/24 15:39) Medication List - Last Reconciled 08/31/24 by Chilango Eckert MD albuterol sulfate 2.5 mg (3 mL) inhalation Q4H PRN albuterol sulfate 90 mcg/actuation 2 inhalations inhalation Q4H PRN alpha-1 proteinase inhib.(hum) IV QWEEK [Bilateral wrist splints Right and Left As directed] cyclobenzaprine 10 mg PO TID PRN fluticasone propion-salmeterol 500-50 mcg/dose (Wixela Inhub) 1 inh PO BID [Hinged KNEE Brace As directed] meloxicam 15 mg PO DAILY sildenafil 50 mg PO DAILY PRN Tobacco use date assessed: 08/31/24 Dental Screening Dental Screen Date: 08/31/24 Did you have a dental visit in the last 12 months?: Yes Did you have a dental problem in the last 6 months where you did not have access to dental care?: No Was dental information given to patient?: Patient has dentist [facility] Medical History (Updated 08/31/24 @ 16:04 by Chilango Eckert MD) LFT elevation Osteoarthritis of right knee Jwhar-2-pczjnlmfbqp deficiency Severe persistent asthma Vitamin D deficiency Physical exam Obesity (BMI 30-39.9) Impaired glucose tolerance Surgical History Finger fracture Status post arthroscopy of hip Family History Father No problems noted. Mother No problems noted. Maternal Grandfather Myocardial infarction Paternal Grandfather Esophageal cancer Social History Housing: House Alcohol intake: current Comment: once Q 2months 2-3 drinks Patient Tobacco Use Status: Former Tobacco user Tobacco use type: Cigarette e-Cigarette/Vaping Use: Never Used Second Hand Smoke Exposure: Yes service: No Current occupational status: employed Cognitive needs: No Hearing needs: No Vision needs: Yes (contacts) Questionnaire PHQ-9 Over the last 2 weeks, how often have you been bothered by any of the following problems? 1. Little interest or pleasure in doing things: not at all 2. Feeling down, depressed, or hopeless: not at all 3. Trouble falling or staying asleep, or sleeping too much: not at all 4. Feeling tired or having little energy: not at all 5. Poor appetite or overeating: not at all 6. Feeling bad about yourself - or that you are a failure or have let yourself or your family down: not at all 7. Trouble concentrating on things, such as reading the newspaper or watching television: not at all 8. Moving or speaking so slowly that other people could have noticed. Or the opposite - being so fidgety or restless that you have been moving around a lot more than usual: not at all 9. Thoughts that you would be better off or of hurting yourself in some way: not at all Total score: 0 Depression Screening Interpretation: Negative Depression Screening Done: Yes Source: Developed by Drs. Ronnell Hull, Yolanda Ramirez, Dc Campbell and colleagues, with an educational brayan from [employer]. Thrive Questionnaire Date Thrive assessed: 08/31/24 AUDIT C Alcohol Use Questionnaire (AUDIT-C) 1. How often do you have a drink containing alcohol?: Never Total Score: 0 AMIRAH-7 AMB Questionnaire AMIRAH-7 Date AMIRAH - 7 assessed: 08/31/24 Feeling nervous, anxious, or on edge: 0 = Not at all Not being able to stop or control worryin = Not at all Worrying too much about different things: 0 = Not at all Trouble relaxin = Not at all Being so restless that it is hard to sit still: 0 = Not at all Becoming easily annoyed or irritable: 0 = Not at all Feeling afraid as if something awful might happen: 0 = Not at all Total AMIRAH-7 score (0-4 normal; 5-9 mild; 10-14 moderate; 15-21 severe): 0 Source: Developed by Drs. Ronnell Hull, Yolanda Ramirez, Dc Campbell and colleagues, with an educational brayan from [employer]. Physical exam (Primary Care) Vital Signs: Last Vital Signs Temp 97.5 F 08/31/24 15:40 Pulse 93 08/31/24 15:40 BP 120/80 08/31/24 15:40 Pulse Ox 97 08/31/24 15:40 Oxygen Delivery Method Room Air 08/31/24 15:40 BMI result Body Mass Index 33.1 Tobacco/Smoking Status: Tobacco use Status Tobacco use date assessed 08/31/24 08/31/24 15:46 Patient Tobacco Use Status Former Tobacco user 08/31/24 15:46 Tobacco use type Cigarette 08/31/24 15:46 e-Cigarette/Vaping Use Never Used 08/31/24 15:46 PHQ-9: PHQ-9 Score PHQ-9: Total score 0 08/31/24 15:46 Depression Screening Interpretation: Negative Thrive Assessment: Date of Thrive Assessment Date Thrive assessed 08/31/24 08/31/24 15:46 Const General: alert; No acute distress Eyes Conjunctivae: conjunctivae normal Resp Auscultation: clear to auscultation bilaterally Cardio Rate: regular rate Rhythm: regular rhythm GI Inspection: Yes normal to inspection Extrem General: Yes normal to inspection and No edema Coding Level of Care Code Est Pt Level 4 (82774) Complex EM visit Add On G2211 Diagnoses Gallbladder polyp K82.4 Hepatic steatosis K76.0 Hypercholesterolemia E78.00 Xroiq-5-cmyhjeqjxoq deficiency E88.01 Severe persistent asthma, unspecified whether complicated J45.50 Asthma complication type: unspecified Obesity (BMI 30-39.9) E66.9 Assessment & Plan Assessment & Plan (1) Gallbladder polyp: Comment: 4 mm June 2024 repeat US 1 year, 3, 5 and if still < 5 mm discontinue surveilance Code(s): K82.4 - Cholesterolosis of gallbladder Category: Medical Plan: Retesting in 6 months (2) Hepatic steatosis: Comment: June 2024 Code(s): K76.0 - Fatty (change of) liver, not elsewhere classified Category: Medical Plan: Low-fat diet and exercise (3) Hypercholesterolemia: Code(s): E78.00 - Pure hypercholesterolemia, unspecified Category: Medical Plan: Avoid fried foods, chicken skin, eggs, butter margarine, pastries and meat. Be it pork or beef they have a lot of cholesterol LDL goal of less than 130 and tri glyceride of less than 150 (4) Wvrcm-6-wmpxxmausmm deficiency: Code(s): E88.01 - Pxuop-9-kxpsitvcdby deficiency Category: Medical Plan: Patient follows up with Pulmonary and seen in August this has been normal (5) Severe persistent asthma: Code(s): J45.50 - Severe persistent asthma, uncomplicated Category: Medical Qualifiers: Asthma complication type: unspecified Qualified Code(s): J45.50 - Severe persistent asthma, uncomplicated Plan: Patient has pulmonary function test has recovered to normal but patient continues to have some problems with breathing and so advised to use Wixela regularly twice a day rinsing mouth after using them. (6) Obesity (BMI 30-39.9): Code(s): E66.9 - Obesity, unspecified Category: Medical Plan: Diet and exercise Orders: Orders Hemoglobin A1c 6 Months R73.02 - Impaired glucose tolerance (oral) Thyroid Stimulating Hormone 6 Months R73.02 - Impaired glucose tolerance (oral) Comprehensive Met. Panel 6 Months R73.02 - Impaired glucose tolerance (oral) Lipid Panel 6 Months E78.00 - Pure hypercholesterolemia, unspecified, R73.02 - Impaired glucose tolerance (oral) Complete Blood Count Auto Diff 6 Months R73.02 - Impaired glucose tolerance (oral) Free T4 (Free Thyroxine) 6 Months R73.02 - Impaired glucose tolerance (oral)
[2024-08-31 15:40] VITALS: BP 120/80; PULSE 93; TEMP 36.4; O2SAT 97; BMI 33.1
--- OUTSIDE RECORDS SUMMARY | 2024-08-31 16:32 | XMS_ITS | Encounter Summary ---
Author Organization [facility] [place] [address] Care Team Providers Care Box Toe Buffer Name Role Phone Jaiden Phillips MD Primary Care Provider + [phone] Reason for Visit * Episode Based Medications (Routine) - Authorized Specialty Diagnoses / Procedures Referred By Contbyron t Referred To Contact Diagnoses Fqtge-1-prnjecufct inhibitor deficiency (CMS/HCC) Jaelyn Page MD [address] [address] Phone: tel: fax: [facility] [address] [place] [phone] Phone: tel: fax: Referral ID Status Reason Start Date Expiration Date V isits Requested Visits Authorized [id number] Authorized 05/19/2024 05/19/2025 1 99 Encounter Details Date Type Department Care Team (Latest Contact Info) Description 08/25/2024 1:20 PM EST - 08/25/2024 11:59 PM EST Hospital Encounter [facility] [address] [place] [phone] Jaelyn Page MD [address] [address] Pvppi-7-uboxqigsja inhibitor deficiency (CMS/HCC) (Primary Dx) Discharge Disposition: [...] Sign Reading Time Taken Comments Blood Pressure 130/78 08/25/2024 1:27 PM EST Pulse 79 08/25/2024 1:27 PM EST Temperature 36.4 ??C (97.5 ??F) 08/25/2024 1:27 PM ES T Respiratory Rate - - Oxygen Saturation 99% 08/25/2024 1:27 PM EST Inhaled Oxygen Concentration - - Weight 114 kg (252 lb) 08/25/2024 1:27 PM EST Height - - Body Mass Index 34.18 03/10/2024 2:48 PM EDT documented in this encounter Medications at Time of Discharge albuterol 2.5 mg /3 mL (0.083 %) nebulizer solution Inhale 3 mL (2.5 mg total) by mouth. 05/26/2020 albuterol 2.5 mg /3 mL (0.083 %) nebulizer solution Take 3 mL (2.5 mg total) by nebulization every 4 (four) hours if needed for wheezing. 300 mL 3 08/25/2024 albuterol HFA (PROAIR HFA ; PROVENTIL HFA ; VENTOLIN HFA) 90 mcg/actuation inhaler Inhale 2 puffs by mouth every 6 (six) hours if needed for wheezing. 6.7 g 11 08/25/2024 cyclobenzaprine (FLEXERIL) 10 mg tablet PLEASE SEE ATTACHED FOR DETAILED DIRECTIONS 06/12/2024 Denta 5000 Plus 1.1 % cream USE DENTAL CREAM TO BRUSH TEETH DAILY - ONCE IN THE MORNING AND ONCE AT NIGHT BEFORE BEDTIME. 09/10/2023 fluticasone propion-salmeter oL (Wixela Inhub) 500-50 mcg/dose diskus inhaler Inhale 1 puff by mouth 2 (two) times a day. Rinse mouth with water after use to reduce aftertaste and incidence of candidiasis. Do not swallow. 1 each 08/25/2024 ibuprofen (ADVIL,MOTRIN) 800 mg tablet Take 1 [...] THE LUNGS DAILY FOR 30 DAYS. 11/16/2021 albuterol HFA (Ventolin HFA) 90 mcg/actuation inhaler Inhale 2 puffs by mouth every 6 (six) hours if needed for wheezing. 6.7 g 08/09/2024 5 documented as of this encounter Discharge Disposition Disposition Code Departure Means Destination Home or Self Care documented in this encounter Progress Notes * Bhavana Calderon RN - 08/25/2024 1:30 PM EST Pt arrives for weekly prolastin infusion. Denies any acute issues. Pt rested during infusion over 20 minutes per patient preference. Pt has tolerated rate in past. Flushed line until clear. Pt stableupon discharge with apts in place. documented in this encounter Plan of Treatment Upcoming Encounters Date Type Department Care Team (Late st Contact Info) Description 09/01/2024 3:00 PM EST Appointment [facility] [address] [place] [phone] 09/08/2024 3:00 PM EST Appointment [facility] [address] [place] [phone] 09/15/2024 3:00 PM EST Appointment [facility] [address] [place] [phone] 02/28/2025 8:15 AM EDT Office Visit Pulmonolgy - [place] [address] [facility] [address] [place] [phone] Jaelyn Page MD 175 [facility] [address] [place] [address] documented as of this encounter Visit Diagnoses Diagnosis Pzhpn-6-jdbbgseovg inhibitor deficiency (CMS/HCC)- Primary Xuxyz-5-pymdooyliev deficiency documented in this encounter Administered Medications Inactive Administered Medications - up to 3 most recent administrations Medication Order MAR Action Action Date Dose Rate Site alpha1-proteinase inhibitor (human) injection 6,900 mg 6,900 mg, intravenous, Administer over 15 Minutes, Once, On Wed08/25/24 at 1345, For 1 dose, weeklyIndications:Cggng-5-oirudn nase inhibitor deficiency (CMS/HCC) New Bag 08/25/2024 2:09 PM EST 6,900 mg documented in this encounter Orders Medications Ordered That Mike ht Not Have Been Administered Count Last Ordered Date First Ordered Date alpha1-proteinase inhibitor (human) injection 6,900 mg 1 08/25/2024 Nursing Count Last Ordered Date First Orde red Date ONC NURSING COMMUNICATION 1 08/25/2024 ONC NURSING COMMUNICATION 5 1 08/25/2024 ONC NURSING COMMUNICATION 9 1 08/25/2024 TREATMENT CONDITIONS 1 08/25/2024 Appointment Requests Count Last Ordered Date Fi rst Ordered Date ONCBCN INFUSION APPOINTMENT REQUEST 03 1 documented in this encounter Care Teams Box Toe Buffer Relationship Specialty Start Date End Date Jaiden Phillips MD [address] [place] [address] Dr [address] [place], [place] PCP - General 07/26/23 documented as of this encounter
--- OUTSIDE RECORDS SUMMARY | 2024-08-31 16:32 | XMS_ITS | Encounter Summary ---
Author Organization [facility] [place] [address] Care Team Providers Care Searchlight Operator Name Role Phone Jaiden Phillips MD Primary Care Provider + [phone] Reason for Visit * Reason Onset Date Comments Med Refill 08/09/2024 Encounter Details Date Type Department Care Team (Late st Contact Info) Description 08/09/2024 [facility] [place] [address] [phone] Jaelyn Page MD 175 [facility] [address] [place] [address] Med Refill Social History Tobacco Use Types [...] 08/09/2024 2:44 PM EST MAMADOU 02/23/24 * Marcellejennifer Rafi - 08/09/2024 2:22 PM EST Patient called requesting a refill for his VENTOLIN HFA. Patient stated that he needs his inhaler chad. Please advice documented in this encounter Plan of Treatment Upcoming Encounters Date Type Department Care Team (Late st Contact Info) Description 09/01/2024 3:00 PM EST Appointment [facility] [address] [place] [phone] 09/08/2024 3:00 PM EST Appointment [address] [phone] 09/15/2024 3:00 PM EST Appointment [address] [phone] 02/28/2025 8:15 AM EDT Office Visit Pulmonolgy - [place] [address] [phone] Jaelyn Page MD [address] [address] documented as of this encounter Visit Diagnoses Not on filedocumented in this encounter Care Teams Searchlight Operator Relationship Specialty Start Date End Date Jaiden Phillips MD [address] [place] [address] Dr [address] [place], [place] PCP - General 07/26/23 documented as of this encounter
--- OUTSIDE RECORDS SUMMARY | 2024-08-31 16:32 | XMS_ITS | Clinical Summary ---
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
--- OUTSIDE RECORDS SUMMARY | 2024-08-31 16:32 | XMS_ITS | Encounter Summary ---
Author Organization [facility] [place] [address] Care Team Providers Care Piping Designer Name Role Phone Jaiden Phillips MD Primary Care Provider + [phone] Encounter Details Date Type Department Care Team [...] Info) Description 09/01/2024 3:00 PM EST Appointment [facility] [address] [place] [phone] 09/08/2024 3:00 PM EST Appointment [facility] [address] [place] [phone] 09/15/2024 3:00 PM EST Appointment [facility] [address] [place] [phone] 02/28/2025 8:15 AM EDT Office Visit Pulmonolgy - [place] 175 [facility] [address] [place] [phone] Jaelyn Page MD 175 [facility] [address] [place] [phone] documented as of this encounter Visit Diagnoses Not on filedocumented in this encounter Care Teams Piping Designer Relationship Specialty Start Date End Date Jaiden Phillips MD [address] [place] [address] [address] [place], [place] PCP - General 07/26/23 documented as of this encounter
--- OUTSIDE RECORDS SUMMARY | 2024-08-31 16:32 | XMS_ITS | Clinical Summary ---
Author Organization [facility] Address [address] [place] [address] Phone Care Team Providers Care Space Systems Operations Manager Name Role Phone Jaiden Phillips MD Primary Care Provider [phone] Allergies No known active allergies Medications albuterol 2.5 mg /3 mL (0.083 %) nebulizer solution Inhale 3 mL (2.5 mg total) by mouth. 05/26/20 20 Active tiotropium (Spiriva Respimat) 1.25 mcg/actuation inhalation spray INHALE 2 PUFFS INTO THE LUNGS DAILY FOR 30 DAYS. 11/17/19 22 Active cyclobenzaprin e (FLEXERIL) 10 mg tablet PLEASE SEE ATTACHED FOR DETAILED DIRECTIONS 06/12/20 24 Active Denta 5000 Plus 1.1 % cream USE DENTAL CREAM TO BRUSH TEETH DAILY - ONCE IN THE MORNING AND ONCE AT NIGHT BEFORE BEDTIME. 09/10/19 24 Active sildenafiL (VIAGRA) 50 mg tablet PLEASE SEE ATTACHED FOR DETAILED DIRECTIONS 07/04/20 24 Active meloxicam (MOBIC) 15 mg tablet Take 1 tablet (15 mg total) by mouth 1 (one) time each day. 06/11/20 24 Active ibuprofen (ADVIL,MOTRIN) 800 mg tablet Take 1 tablet (800 mg total) by mouth 3 (three) times a day if needed. for pain 05/27/20 24 Active albuterol HFA (PROAIR HFA ; PROVENTIL HFA ; VENTOLIN HFA) 90 mcg/actuation inhaler Inhale 2 puffs by mouth every 6 (six) hours if needed for wheezing. 6.7 g 08/25/19 026 Active albuterol 2.5 mg /3 mL (0.083 %) nebulizer solution Take 3 mL (2.5 mg total) by nebulization every 4 (four) hours if needed for wheezing. 300 mL 08/25/19 25 026 Active fluticasone propion-salmet Andria (Wixela Inhub) 500-50 mcg/dose diskus inhaler Inhale 1 puff by mouth 2 (two) times a day. Rinse mouth with water after use to reduce aftertaste and incidence of candidiasis. Do not swallow. 1 each 08/25/19 25 026 Active levalbuterol (XOPENEX HFA) 45 mcg/actuation inhaler Inhale 2 puffs by mouth every 4 (four) hours if needed for wheezing. 1 g 08/28/19 25 026 Active fluticasone propion-salmet Andria (ADVAIR DISKUS) 500-50 mcg/dose diskus inhaler Inhale 1 puff by mouth. 02/18/20 24 025 Discontinued albuterol HFA (Ventolin HFA) 90 mcg/actuation inhaler Inhale 2 puffs by mouth every 6 (six) hours if needed for wheezing. 6.7 g 08/09/19 025 Discontinued fluticasone propion-salmet Andria (ADVAIR DISKUS) 500-50 mcg/dose diskus inhaler Inhale 1 puff by mouth 2 (two) times a day. Rinse mouth with water after use to reduce aftertaste and incidence of candidiasis. Do not swallow. 3 each 4 08/25/19 25 025 Discontinued Active Problems Problem Noted Date Diagnosed Date Knbwj-1-nnjdmyyhtf inhibitor deficiency 12/06/19 22 Severe persistent asthma without complication Encounters Date Type Department Care Team Description 08/25/2024 3:30 PM EST Office Visit [address] [place] [address] Jaelyn Page MD Severe persistent asthma without complication (CMS/HCC) (Primary Dx); Ctqof-0-ouhmmcwafz inhibitor deficiency (CMS/HCC) 08/25/2024 1:20 PM EST - 08/25/2024 11:59 PM EST Hospital Encounter [facility] [address] [place] [phone] Jaelyn Page MD Kfppp-6-jsqsbfwjww inhibitor deficiency (CMS/HCC) (Primary Dx) Discharge Disposition: Home or Self Care 08/18/2024 2:51 PM EST - 08/18/2024 11:59 PM EST Hospital Encounter [address] [phone] Jaelyn Page MD Agkiq-6-bmerswmngk inhibitor deficiency (CMS/HCC) (Primary Dx) Discharge Disposition: Home or Self Care 08/11/2024 2:57 PM EST - 08/11/2024 11:59 PM EST Hospital Encounter [address] [phone] Jaelyn Page MD Kyfhy-7-vsswatdkxu inhibitor deficiency (CMS/HCC) (Primary Dx) Discharge Disposition: Home or Self Care 08/09/2024 [facility] [address] [phone] Jaelyn Page MD Med Refill 08/04/2024 3:00 PM EST - 08/04/2024 11:59 PM EST Hospital Encounter [facility] [address] [place] [phone] Jaelyn Page MD Eavds-4-ndkoycexsy inhibitor deficiency (CMS/HCC) (Primary Dx) Discharge Disposition: Home or Self Care 07/28/2024 2:17 PM EST - 07/28/2024 11:59 PM EST Hospital Encounter [facility] [address] [place] [phone] Jaelyn Page MD Ighai-7-zdzrlerzee inhibitor deficiency (CMS/HCC) (Primary Dx) Discharge Disposition: Home or Self Care 07/21/2024 2:53 PM EST - 07/21/2024 11:59 PM EST Hospital Encounter [facility] [address] [place] [phone] Jaelyn Page MD Xpzia-7-upezokuetc inhibitor deficiency (CMS/HCC) (Primary Dx) Discharge Disposition: Home or Self Care 07/14/2024 2:33 PM EST - 07/14/2024 11:59 PM EST Hospital Encounter [facility] [address] [place] [phone] Kntan-3-bkdwdnvajy inhibitor deficiency (CMS/HCC) (Primary Dx) Discharge Disposition: Home or Self Care 07/07/2024 2:34 PM EST - 07/07/2024 11:59 PM EST Hospital Encounter [facility] [address] [place] [phone] Srppy-1-artpwiuyvl inhibitor deficiency (CMS/HCC) (Primary Dx) Discharge Disposition: Home or Self Care 06/30/2024 2:31 PM EST - 06/30/2024 11:59 PM EST Hospital Encounter [facility] [address] [place] [phone] Ipebq-5-voautsswzw inhibitor deficiency (CMS/HCC) (Primary Dx) Discharge Disposition: Home or Self Care 06/23/2024 2:48 PM EST - 06/23/2024 11:59 PM EST Hospital Encounter [facility] [address] [place] [phone] Lsfog-4-ubbkpkxxle inhibitor deficiency (CMS/HCC) (Primary Dx) Discharge Disposition: Home or Self Care 06/16/2024 2:54 PM EST - 06/16/2024 11:59 PM EST Hospital Encounter [facility] [address] [place] [phone] Cvqjf-1-tksqelksca inhibitor deficiency (CMS/HCC) (Primary Dx) Discharge Disposition: Home or Self Care 06/09/2024 2:40 PM EST - 06/09/2024 11:59 PM EST Hospital Encounter [facility] [address] [place] [phone] Oyxoh-6-teuzxbessd inhibitor deficiency (CMS/HCC) (Primary Dx) Discharge Disposition: Home or Self Care 06/02/2024 8:08 AM EST - 06/02/2024 11:59 PM EST Hospital Encounter [facility] [address] [place] [phone] Rtduk-1-kuohbjlenc inhibitor deficiency (CMS/HCC) (Primary Dx) Discharge Disposition: [...] Sign Reading Time Taken Comments Blood Pressure 136/78 08/25/2024 3:38 PM EST Pulse 75 08/25/2024 3:38 PM EST Temperature 36.4 ??C (97.5 ??F) 08/25/2024 3:38 PM ES T Respiratory Rate 20 08/25/2024 3:38 PM EST Oxygen Saturation 97% 08/25/2024 3:38 PM EST Inhaled Oxygen Concentration - - Weight 114 kg (252 lb) 08/25/2024 3:38 PM EST Height 182.9 cm (6') 08/25/2024 3:38 PM EST Body Mass Index 34.18 08/25/2024 3:38 PM EST Plan of Treatment Upcoming Encounters Date Type Department Care Team (Late st Contact Info) Description 09/01/2024 3:00 PM EST Appointment [facility] [address] [place] [phone] 09/08/2024 3:00 PM EST Appointment [facility] [address] [facility] [address] [place] [address] 09/15/2024 3:00 PM EST Appointment [facility] [address] [phone] 02/28/2025 8:15 AM EDT Office Visit [place]gy [place] 175 [facility] [address] [place] [phone] Jaelyn Page MD 175 [facility] 200 [place] [address] Health Maintenance Due Date Last Done Comments [...] Influencers of Health Screening 06/20/2022 COVID-19 Vaccine (2023-2 5 season) 2024 06/28/2021, 08/28/2020, 08/06/2020 Influenza [...] patient's age to complete this topic Insurance [facility] Care Teams Space Systems Operations Manager Relationship Specialty Start Date End Date Jaiden Phillips MD 2 [facility] [address] [place], [place] PCP - General 07/26/23
--- OUTSIDE RECORDS SUMMARY | 2024-08-31 16:32 | XMS_ITS | Encounter Summary ---
Author Organization [facility] [place] [address] Care Team Providers Care Dock Clerk Name Role Phone Jaiden Phillips MD Primary Care Provider + [phone] Reason for Visit * Episode Based Medications (Routine) - Authorized Specialty Diagnoses / Procedures Referred By Contbyron t Referred To Contact Diagnoses Kldxj-4-kemmpsqixc inhibitor deficiency (CMS/HCC) Jaelyn Page MD [address] [address] Phone: tel: fax: [facility] [address] [place] [phone] Phone: tel: fax: Referral ID Status Reason Start Date Expiration Date V isits Requested Visits Authorized [id number] Authorized 05/19/2024 05/19/2025 1 99 Encounter Details Date Type Department Care Team (Latest Contact Info) Description 08/18/2024 2:51 PM EST - 08/18/2024 11:59 PM EST Hospital Encounter [facility] [address] [place] [phone] Jaelyn Page MD [address] [address] Qtwpw-9-bybbqzkotm inhibitor deficiency (CMS/HCC) (Primary Dx) Discharge Disposition: [...] mL (2.5 mg total) by mouth. 05/26/2020 cyclobenzaprine (FLEXERIL) 10 mg tablet PLEASE SEE ATTACHED FOR DETAILED DIRECTIONS 06/12/2024 Denta 5000 Plus 1.1 % cream USE DENTAL CREAM TO BRUSH TEETH DAILY - ONCE IN THE MORNING AND ONCE AT NIGHT BEFORE BEDTIME. 09/10/2023 ibuprofen (ADVIL,MOTRIN) 800 mg tablet Take 1 [...] needed for wheezing. 6.7 g 11 08/09/2024 5 fluticasone propion-salmeter oL (ADVAIR DISKUS) 500-50 mcg/dose diskus inhaler Inhale 1 puff by mouth. 02/18/2024 5 documented as of this encounter Discharge [...] Info) Description 09/01/2024 3:00 PM EST Appointment [facility] [address] [place] [phone] 09/08/2024 3:00 PM EST Appointment [facility] [address] [place] [phone] 09/15/2024 3:00 PM EST Appointment [facility] [address] [place] [phone] 02/28/2025 8:15 AM EDT [facility] [address] [place] [phone] Jaelyn Page MD 175 [facility] 200 [place] [address] documented as of this encounter Visit Diagnoses Diagnosis Ynuxj-1-bwzjatotmc inhibitor deficiency (CMS/HCC)- Primary Oqdcu-6-xgfwvourkpp deficiency documented in this encounter Administered Medications Inactive Administered Medications - up to 3 most recent administrations Medication Order MAR Action Action Date Dose Rate Site alpha1-proteinase inhibitor (human) injection 6,900 mg 6,900 mg, intravenous, Administer over 15 Minutes, Once, On Wed08/18/24 at 1515, For 1 dose, weeklyIndications:Qowwn-6-mcjuju nase inhibitor deficiency (CMS/HCC) New Bag 08/18/2024 [...] 1 documented in this encounter Care Teams Dock Clerk Relationship Specialty Start Date End Date Jaiden Phillips MD [address] [place] [address] [address] PCP - General 07/26/23 documented as of this encounter
--- OUTSIDE RECORDS SUMMARY | 2024-08-31 16:32 | XMS_ITS | Encounter Summary ---
Author Organization [facility] [place] [address] Care Team Providers Care Recruiting Intern Name Role Phone Jaiden Phillips MD Primary Care Provider + [phone] Reason for Visit * Reason Comments COPD F/u copd Encounter Details Date Type Department Care Team (Late st Contact Info) Description 08/25/2024 3:30 PM EST Office Visit Pulmonolgy - [place] 175 [facility] [address] [place] [phone] Jaelyn Page MD 175 [facility] [address] [place] [address] Severe persistent asthma without complication (CMS/HCC) (Primary Dx); Bankb-7-njpwiefhbf inhibitor deficiency (CMS/HCC) Social History Tobacco Use Types Packs/Day Years [...] Mass Index 34.18 08/25/2024 3:38 PM EST documented in this encounter Ordered Prescriptions Prescription Sig Dispense Quantity Refills Last Filled Start Date End Date fluticasone propion-salmetero L (Wixela Inhub) 500-50 mcg/dose diskus inhaler Inhale 1 puff by mouth 2 (two) times a day. Rinse mouth with water after use to reduce aftertaste and incidence of candidiasis. Do not swallow. 1 each 11 08/25/2024 6 albuterol 2.5 mg /3 mL (0.083 %) nebulizer solution Take 3 mL (2.5 mg total) by nebulization every 4 (four) hours if needed for wheezing. 300 mL 3 08/25/2024 6 albuterol HFA (PROAIR HFA ; PROVENTIL HFA ; VENTOLIN HFA) 90 mcg/actuation inhaler Inhale 2 puffs by mouth every 6 (six) hours if needed for wheezing. 6.7 g 11 08/25/2024 6 fluticasone propion-salmetero L (ADVAIR DISKUS) 500-50 mcg/dose diskus inhaler Inhale 1 puff by mouth 2 (two) times a day. Rinse mouth with water after use to reduce aftertaste and incidence of candidiasis. Do not swallow. 3 each 4 08/25/2024 5 documented in this encounter Progress Notes * Jaelyn Page MD - 08/25/2024 3:30 PM EST ADULT PULMONARY CONSULT CHIEF COMPLAINT or REASON FOR CONSULTATION: COPD (F/u copd) Joseph Duran is a 43 y.o. years old, male with a history of asthma and alpha-1 deficiecy. . History of Present Illness He reports no current symptoms of chronic cough or fever. He has been using albuterol and a nebulizer as part of his treatment regimen. However, he has not been adhering to his prescribed Spiriva andWixela due to financial constraints, with each medication costing him $ 140 per month under his newinsurance plan. He is seeking alternatives that are more cost-effective. His albuterol HFA prescription was updated 2 weeks ago. He gets weekly alpha-1 replacement- has no SOB and has ot miss work SOCIAL HISTORY He does not smoke. MEDICATIONS Current: Albuterol, Spiriva, Wixela ALLERGIES: No Known Allergies ACTIVE MEDICATIONS: Outpatient Medications Marked as Taking for the 08/25/24 encounter (Office Visit) with Jaelyn Page MD Medication Sig Dispense Refill albuterol 2.5 mg /3 mL (0.083 %) nebulizer solution Inhale 3 mL (2.5 mg total) by mouth. albuterol HFA (Ventolin HFA) 90 mcg/actuation inhaler Inhale 2 puffs by mouth every 6 (six) hours if needed for wheezing. 6.7 g 11 cyclobenzaprine (FLEXERIL) 10 mg tablet PLEASE SEE ATTACHED FOR DETAILED DIRECTIONS Denta 5000 Plus 1.1 % cream USE DENTAL CREAM TO BRUSH TEETH DAILY - ONCE IN THE MORNING AND ONCE ATNIGHT BEFORE BEDTIME. ibuprofen (ADVIL,MOTRIN) 800 mg tablet Take 1 tablet (800 mg total) by mouth 3 (three) times a day if needed. for pain meloxicam (MOBIC) 15 mg tablet Take 1 tablet (15 mg total) by mouth 1 (one) time each day. sildenafiL (VIAGRA) 50 mg tablet PLEASE SEE ATTACHED FOR DETAILED DIRECTIONS tiotropium (Spiriva Respimat) 1.25 mcg/actuation inhalation spray INHALE 2 PUFFS INTO THE LUNGS DAILY FOR 30 DAYS. [DISCONTINUED] fluticasone propion-salmeteroL (ADVAIR DISKUS) 500-50 mcg/dose diskus inhaler Inhale1 puff by mouth. PROVIDER ATTESTS THAT THE MEDICATION LIST WAS OBTAINED, REVIEWED AND UPDATED. REVIEW OF SYSTEMS: GENERAL: + wt lost or fever ENT: +snoring Eye: RESPIRATORY: no cough, wheezing and dyspnea CARDIOVASCULAR: No chest pain, leg swelling or palpitations GI: No abdominal discomfort, MUSCULOSKELETAL: +backpain HEMATOLOGY/LYMPHOLOGY No prolonged bleeding, easy bruisability ENDOCRINE: no DM NEURO: No focal weakness : Psych: no depression PAST MEDICAL HISTORY: Patient Active Problem List Diagnosis Date Noted Ckzwd-4-jqqxgxmkek inhibitor deficiency ([facility]) 12/05/2021 Severe persistent asthma without complication ([facility]) 08/03/2018 No past surgical history on file. 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 PHYSICAL EXAM: Visit Vitals BP 136/78 (BP Location: Left arm, Patient Position: Sitting, BP Cuff Size: Large adult) Pulse 75 Temp 36.4 ??C (97.5 ??F) (Temporal) Resp 20 Ht 1.829 m (72 ) Wt 114 kg (252 lb) SpO2 97% BMI 34.18 kg/m?? Smoking Status Former BSA 2.35 m?? APPEARANCE: Alert and in no acute distress. well nourished EYES: Conjunctiva and sclera normal. NOSE/SINUS: Nares normal. Septum midline. Mucosa MOUTH/THROAT: no erythema or exudates. Mallampati class 2 NECK: Neck supple, thyroid symmetric and of normal size. HEART: RRR with normal S1 and S2, no murmurs, no gallops LUNG: CTA b/l, no wheezing or bronchial bs ABDOMEN: Bowel sounds normoactive, soft, non-tender EXTREMITIES: no clubbing, cyanosis, or edema. NEURO: Awake, alert and oriented x 3, no focalization. DIAGNOSTIC DATA: Component Ref Range & Units 11 mo ago 1 yr ago ALPHA 1 ANTITRYPSIN 90 - 200 mg/dL 74 Low 77 Low CARDIOPULMONARY TEST: 03/17/23 INDICATION: SPIROMETRY: FEV1 is 90 % predicted and an FVC is 115 % predicted.The FEV1/FVC ratio is 78% of normal, No significant response to bronchodilators noted. Maximum voluntary ventilation 80% predicted. LUNG VOLUMES: Total lung capacity (TLC): 136% predicted. Residual volume (RV): 176% predicted RV/TLC ratio is 119% of normal End respiratory volume (ERV): 153% predicted DIFFUSION CAPACITY: DLCO 109% predicted. DlCO/VA 81% of predicted COMPARISONS: INTERPRETATION: This pulmonary function test shows Mild obstruction with gas trapping. The diffusion capacity is normal. The obstruction is likely related to the patient's longstanding asthma. When compared to the last test from August 2021, there has been significant improvement in FEV1 FVC and diffusion capacity ASSESSMENT: ICD-10-CM ICD-9-CM 1. Severe persistent asthma without complication ([facility]) J45.50 493.90 2. Umqtm-6-yukvcyzdxa inhibitor deficiency ([facility]) E88.01 273.4 PLAN: Assessment & Plan 1. Respiratory issues. His pulmonary function tests have shown significant improvement, with the most recent results indicating normal lung function. I will discontinue the use of Spiriva since his PFT is now normal. A prescription for Advair will be provided, which is a tier 1 medication and should be more cost-effective. He willie lcont prn albuterol and weekly alpha-1 infusion Follow-up The patient will follow up in 6 months. - Follow up with Jaiden Phillips MD for the other co-morbilities. - I spend 32 Minutes on this visit. The patient was educated about his problems, where assessment and plan was reviewed and explained, All questions were answered. RETURN TO THE NEXT VISIT: Based on physical exam, symptomatology, tests requested and baseline pulmonary evaluation/disease, I instructed the patient to come back to see me in 6 mths for reevaluation after the test has been done or earlier if the patient needed. Thanks Jaiden Phillips MD for allowing me to have the opportunity to assist in the care of this patient. I have obtained verbal consent from Joseph Duran prior to the recording. I have advised Joseph Duran that he may refuse the recording and require the recording to be turned off at any time duringthis encounter. documented in this encounter Plan of Treatment Upcoming Encounters Date Type Department Care Team (Late st Contact Info) Description 09/01/2024 3:00 PM EST Appointment [facility] [address] [phone] 09/08/2024 3:00 PM EST Appointment [facility] [address] [phone] 09/15/2024 3:00 PM EST Appointment [facility] [address] [phone] 02/28/2025 8:15 AM EDT Office Visit Pul[place]olgy - [place] 175 [facility] 200 [place] [phone] Jaelyn Page MD [address] [address] documented as of this encounter Visit Diagnoses Diagnosis Severe persistent asthma without complication (CMS/HCC)- Primary Qanhg-9-lquaucawue inhibitor deficiency ([facility]) Ukoyn-2-wdbpsjtrqgg deficiency documented in this encounter Discontinued Medications Medication Sig Discontinue Reason Start Date End Da te fluticasone propion-salmeteroL (ADVAIR DISKUS) 500-50 mcg/dose diskus inhaler Inhale 1 puff by mouth. 02/18/2024 08/25/2024 fluticasone propion-salmeteroL (ADVAIR DISKUS) 500-50 mcg/dose diskus inhaler Inhale 1 puff by mouth 2 (two) times a day. Rinse mouth with water after use to reduce aftertaste and incidence of candidiasis. Do not swallow. 08/25/2024 08/25/2024 documented as of this encounter Care Teams Recruiting Intern Relationship Specialty Start Date End Date Jaiden Phillips MD [address] [place] [address] PCP - General 07/26/23 documented as of this encounter
--- OUTSIDE RECORDS SUMMARY | 2024-08-31 16:32 | XMS_ITS | Encounter Summary ---
Author Organization [facility] [place] [address] Care Team Providers Care Smoked Meat Preparer Name Role Phone Jaiden Phillips MD Primary Care Provider + [phone] Encounter Details Date Type Department Care Team [...] Description 09/01/2024 3:00 PM EST Appointment [facility] [address] [place] [phone] 09/08/2024 3:00 PM EST Appointment [facility] [address] [place] [phone] 09/15/2024 3:00 PM EST Appointment [facility] [address] [place] [phone] 02/28/2025 8:15 AM EDT Office Visit Pulmonolgy - [place] 175 [facility] [address] [place] [phone] Jaelyn Page MD 175 [facility] 200 [place] [address] documented as of this encounter Visit Diagnoses Not on filedocumented in this encounter Care Teams Smoked Meat Preparer Relationship Specialty Start Date End Date Jaiden Phillips MD [address] [place] [address] [address] [place], [place] PCP - General 07/26/23 documented as of this encounter
--- OUTSIDE RECORDS SUMMARY | 2024-08-31 16:32 | XMS_ITS | Encounter Summary ---
Author Organization [facility] [place] [address] Care Team Providers Care Cooker Cleaner Name Role Phone Jaiden Phillips MD Primary Care Provider + [phone] Reason for Visit * Episode Based Medications (Routine) - Authorized Specialty Diagnoses / Procedures Referred By Contbyron t Referred To Contact Diagnoses Sxtes-3-pgbsbnlgtt inhibitor deficiency (CMS/HCC) Jaelyn aPge MD [address] [address] Phone: tel: fax: [facility] [address] [place] [phone] Phone: tel: fax: Referral ID Status Reason Start Date Expiration Date V isits Requested Visits Authorized [id number] Authorized 05/19/2024 05/19/2025 1 99 Encounter Details Date Type Department Care Team (Latest Contact Info) Description 08/11/2024 2:57 PM EST - 08/11/2024 11:59 PM EST Hospital Encounter [facility] [address] [place] [phone] Jaelyn Page MD [address] [address] Buynx-0-vinevyyxnh inhibitor deficiency (CMS/HCC) (Primary Dx) Discharge Disposition: [...] Info) Description 09/01/2024 3:00 PM EST Appointment [facility] [address] [place] [phone] 09/08/2024 3:00 PM EST Appointment [facility] [address] [place] [phone] 09/15/2024 3:00 PM EST Appointment [facility] [address] [phone] 02/28/2025 8:15 AM EDT [facility] 175 [facility] 200 [place] [phone] Jaelyn Page MD 175 [facility] [address] [place] [address] documented as of this encounter Visit Diagnoses Diagnosis Zuslo-9-ucnlwgvaul inhibitor deficiency (CMS/HCC)- Primary Pffdk-2-oyxaqyrvzik deficiency documented in this encounter Administered Medications [...] 03 documented in this encounter Care Teams Cooker Cleaner Relationship Specialty Start Date End Date Jaiden Phillips MD [address] [place] [address] [address] [place], [place] PCP - General 07/26/23 documented as of this encounter
--- OUTSIDE RECORDS SUMMARY | 2024-08-31 16:32 | XMS_ITS | Encounter Summary ---
Author Organization [facility] [place] [address] Care Team Providers Care Chief Mechanical Officer Name Role Phone Jaiden Phillips MD Primary Care Provider + [phone] Encounter Details Date Type Department Care Team [...] Info) Description 09/01/2024 3:00 PM EST Appointment [facility] [address] [place] [phone] 09/08/2024 3:00 PM EST Appointment [facility] [address] [place] [phone] 09/15/2024 3:00 PM EST Appointment [facility] [address] [place] [phone] 02/28/2025 8:15 AM EDT Office Visit Pulmonolgy - [place] 175 [facility] [address] [place] [phone] Jaelyn Page MD 175 [facility] [phone] documented as of this encounter Visit Diagnoses Not on filedocumented in this encounter Care Teams Chief Mechanical Officer Relationship Specialty Start Date End Date Jaiden Phillips MD [address] [place] [address] Dr [address] [place], [place] PCP - General 07/26/23 documented as of this encounter
--- OUTSIDE RECORDS SUMMARY | 2024-08-31 16:32 | XMS_ITS | Encounter Summary ---
Author Organization [facility] [place] [address] Care Team Providers Care Social Insurance Analyst Name Role Phone Jaiden Phillips MD Primary Care Provider + [phone] Reason for Visit * Reason Comments OP Infusion Prolastin * Episode Based Medications (Routine) - Authorized Specialty Diagnoses / Procedures Referred By Contac t Referred To Contact Diagnoses Vvgkb-2-gahfvalkvc inhibitor deficiency (CMS/HCC) Jaelyn Page MD [address] [address] Phone: tel: fax: [facility] [address] [place] [phone] Phone: tel: fax: Referral ID Status Reason Start Date Expiration Date V isits Requested Visits Authorized [id number] Authorized 05/19/2024 05/19/2025 1 99 Encounter Details Date Type Department Care Team (Latest Contact Info) Description 08/04/2024 3:00 PM EST - 08/04/2024 11:59 PM EST Hospital Encounter [facility] [address] [place] [phone] Jaelyn Page MD [address] [address] Dvwkp-9-tlcjxltvrg inhibitor deficiency (CMS/HCC) (Primary Dx) Discharge Disposition: [...] THE LUNGS DAILY FOR 30 DAYS. 11/16/2021 fluticasone propion-salmeter oL (ADVAIR DISKUS) 500-50 mcg/dose diskus inhaler Inhale 1 puff by mouth. 02/18/2024 documented as of this encounter Discharge Disposition [...] Info) Description 09/01/2024 3:00 PM EST Appointment [facility] [address] [place] [phone] 09/08/2024 3:00 PM EST Appointment [facility] [address] [place] [phone] 09/15/2024 3:00 PM EST Appointment [facility] [address] [place] [phone] 02/28/2025 8:15 AM EDT Office Visit [facility] [place] [address] [phone] Jaelyn Page MD 175 [facility] 200 [place] [address] documented as of this encounter Visit Diagnoses Diagnosis Vrcof-2-yxpguiorek inhibitor deficiency (CMS/HCC)- Primary Reswf-5-ifdszkjfmen deficiency documented in this encounter Administered Medications [...] may reflect changes made after this encounter. ibuprofen (ADVIL,MOTRIN) 800 mg tablet Take 1 [...] PLEASE SEE ATTACHED FOR DETAILED DIRECTIONS 06/12/2024 fluticasone propion-salmeter oL (ADVAIR DISKUS) 500-50 mcg/dose diskus inhaler Inhale 1 puff by mouth. 02/18/2024 5 added in this encounter Orders Nursing Count Last Ordered Date First Orde red Date ONC NURSING COMMUNICATION 1 08/04/2024 ONC NURSING COMMUNICATION 5 08/04/2024 ONC NURSING COMMUNICATION 9 08/04/2024 TREATMENT CONDITIONS 1 08/04/2024 Appointment Requests Count Last Ordered Date Fi rst Ordered Date ONCBCN INFUSION APPOINTMENT REQUEST 03 documented in this encounter Care Teams Social Insurance Analyst Relationship Specialty Start Date End Date Jaiden Phillips MD [address] [place] [address] [address] [place] PCP - General 07/26/23 documented as of this encounter
--- OUTSIDE RECORDS SUMMARY | 2024-08-31 16:32 | XMS_ITS | Encounter Summary ---
Author Organization [facility] [place] [address] Care Team Providers Care Plant Custodian Name Role Phone Jaiden Phillips MD Primary Care Provider + [phone] Encounter Details Date Type Department Care Team [...] PM EST Appointment [facility] [address] [place] [phone] 09/08/2024 3:00 PM EST Appointment [facility] [address] [place] [phone] 09/15/2024 3:00 PM EST Appointment [facility] [address] [place] [phone] 02/28/2025 8:15 AM EDT Office Visit Pulmonolgy - [place] 175 [facility] [address] [place] [phone] Jaelyn Page MD 175 [facility] 200 [place] [address] documented as of this encounter Visit Diagnoses Not on filedocumented in this encounter Care Teams Plant Custodian Relationship Specialty Start Date End Date Jaiden Phillips MD [address] [place] [address] Dr [address] [place], [place] PCP - General 07/26/23 documented as of this encounter
--- OUTSIDE RECORDS SUMMARY | 2024-08-31 16:32 | XMS_ITS | Encounter Summary ---
Author Organization [facility] [place] [address] Care Team Providers Care Jumpbasting Armhole Baster Name Role Phone Jaiden Phillips MD Primary Care Provider + [phone] Encounter Details Date Type Department Care Team [...] Info) Description 09/01/2024 3:00 PM EST Appointment [facility] [address] [phone] 09/08/2024 3:00 PM EST Appointment [facility] [address] [phone] 09/15/2024 3:00 PM EST Appointment [facility] [address] [place] [phone] 02/28/2025 8:15 AM EDT Office Visit Pulmonolgy - [place] [address] [phone] Jaelyn Page MD [address] [address] documented as of this encounter Visit Diagnoses Not on filedocumented in this encounter Care Teams Jumpbasting Armhole Baster Relationship Specialty Start Date End Date Jaiden Phillips MD [address] [place] [address] [address] [place] [address] PCP - General 07/26/23 documented as of this encounter
== END 2024-08-31 16:22 | disposition home or self-care (01) ==
PROVIDERS: PCP Internal Medicine; Visit Provider Internal Medicine
DX: K82.4 Cholesterolosis of gallbladder (principal); K76.0 Fatty (change of) liver, not elsewhere classified; E78.00 Pure hypercholesterolemia, unspecified; E88.01 Alpha-1-antitrypsin deficiency; J45.50 Severe persistent asthma, uncomplicated; E66.9 Obesity, unspecified

== ENCOUNTER 2024-09-11 15:41 | Outpatient (AMB) | payer OTHER, SELFPAY ==
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
[2024-09-11 16:04] VITALS: BP 126/70; PULSE 67; TEMP 36.6; O2SAT 96; BMI 33.5
--- OUTSIDE RECORDS SUMMARY | 2024-09-11 18:30 | XMS_ITS | Encounter Summary ---
Author Organization [facility] [place] [address] Care Team Providers Care Senior Manufacturing Technician Name Role Phone Jaiden Phillips MD Primary Care Provider + [phone] Encounter Details Date Type Department Care Team [...] Care Team (Late st Contact Info) Description 09/15/2024 3:00 PM EST Appointment [facility] [address] [place] [phone] 09/22/2024 3:00 PM EDT Appointment [facility] [address] [place] [phone] 09/29/2024 3:00 PM EDT Appointment [facility] [address] [place] [phone] 10/06/2024 3:00 PM EDT Appointment [facility] [address] [place] [phone] 02/28/2025 8:15 AM EDT Office Visit Pulmonolgy - [place] 175 [facility] [address] [place] [phone] Jaelyn Page MD 175 [facility] [address] [place] [phone] documented as of this encounter Visit Diagnoses Not on filedocumented in this encounter Care Teams Senior Manufacturing Technician Relationship Specialty Start Date End Date Jaiden Phillips MD [address] [place] [address] [address] [place], [place] PCP - General 07/26/23 documented as of this encounter
--- OUTSIDE RECORDS SUMMARY | 2024-09-11 18:30 | XMS_ITS | Encounter Summary ---
Author Organization [facility] [place] [address] Care Team Providers Care Ciaio Lumite Injector Name Role Phone Jaiden Phillips MD Primary Care Provider + [phone] Encounter Details Date Type Department Care Team [...] Info) Description 09/15/2024 3:00 PM EST Appointment [address] [phone] 09/22/2024 3:00 PM EDT Appointment [address] [phone] 09/29/2024 3:00 PM EDT Appointment [facility] [address] [place] [phone] 10/06/2024 3:00 PM EDT Appointment [address] [phone] 02/28/2025 8:15 AM EDT Office Visit Pulmonol - [place] [address] [phone] Jaelyn Page MD [address] [address] documented as of this encounter Visit Diagnoses Not on filedocumented in this encounter Care Teams Ciaio Lumite Injector Relationship Specialty Start Date End Date Jaiden Phillips MD [address] [place] [address] [address] [place], [place] PCP - General 07/26/23 documented as of this encounter
--- OUTSIDE RECORDS SUMMARY | 2024-09-11 18:30 | XMS_ITS | Encounter Summary ---
Author Organization [facility] [place] [address] Care Team Providers Care Shrimp Peeler Name Role Phone Jaiden Phillips MD Primary Care Provider + [phone] Encounter Details Date Type Department Care Team [...] Info) Description 09/15/2024 3:00 PM EST Appointment [facility] [address] [place] [phone] 09/22/2024 3:00 PM EDT Appointment [facility] [address] [place] [phone] 09/29/2024 3:00 PM EDT Appointment [facility] [address] [place] [phone] 10/06/2024 3:00 PM EDT Appointment [facility] [address] [place] [phone] 02/28/2025 8:15 AM EDT Office Visit Pulmonolgy - [place] [address] [phone] Jaelyn Page MD [address] [address] documented as of this encounter Visit Diagnoses Not on filedocumented in this encounter Care Teams Shrimp Peeler Relationship Specialty Start Date End Date Jaiden Phillips MD [address] [place] [address] [address] [place], [place] PCP - General 07/26/23 documented as of this encounter
--- OUTSIDE RECORDS SUMMARY | 2024-09-11 18:30 | XMS_ITS | Encounter Summary ---
Author Organization [facility] [place] [address] Care Team Providers Care Pyrotechnics Press Tender Name Role Phone Jaiden Phillips MD Primary Care Provider + [phone] Reason for Visit * Episode Based Medications (Routine) - Authorized Specialty Diagnoses / Procedures Referred By Contbyron t Referred To Contact Diagnoses Phhxv-7-boykcpxxnn inhibitor deficiency (CMS/HCC) Jaelyn Page MD [address] [address] Phone: tel: fax: [facility] [address] [place] [phone] Phone: tel: fax: Referral ID Status Reason Start Date Expiration Date V isits Requested Visits Authorized [id number] Authorized 05/19/2024 05/19/2025 1 99 Encounter Details Date Type Department Care Team (Latest Contact Info) Description 09/01/2024 2:47 PM EST - 09/01/2024 11:59 PM EST Hospital Encounter [facility] [address] [place] [phone] Jaelyn Page MD [address] [address] Bglnv-3-hpesbbscrv inhibitor deficiency (CMS/HCC) (Primary Dx) Discharge Disposition: [...] Sign Reading Time Taken Comments Blood Pressure 122/86 09/01/2024 2:53 PM EST Pulse 77 09/01/2024 2:53 PM EST Temperature 36.4 ??C (97.6 ??F) 09/01/2024 2:53 PM ES T Respiratory Rate - - Oxygen Saturation 98% 09/01/2024 2:53 PM EST Inhaled Oxygen Concentration - - Weight 116 kg (255 lb 12.8 oz) 09/01/2024 2:53 P M EST Height - - Body Mass Index 34.69 08/25/2024 3:38 PM EST documented in this encounter Medications at Time [...] Do not swallow. 1 each 11 08/25/2024 ibuprofen (ADVIL,MOTRIN) 800 mg tablet Take 1 tablet (800 mg total) by mouth 3 (three) times a day if needed. for pain 05/27/2024 levalbuterol (XOPENEX HFA) 45 mcg/actuation inhaler Inhale 2 puffs by mouth every 4 (four) hours if needed for wheezing. 1 g 3 08/28/2024 meloxicam (MOBIC) 15 mg tablet Take 1 [...] Progress Notes * Giovana Key RN - 09/01/2024 3:00 PM EST Arrived amb for weekly prolastin. Pt is feeling well, stable assessment. PIV placed. 1600 Prolastin infusion complete without incident, pt is feeling well, appts requested through September, pt left amb, stable at D/C. documented in this encounter Plan of Treatment Upcoming Encounters Date Type Department Care Team (Late st Contact Info) Description 09/15/2024 3:00 PM EST Appointment [facility] [address] [place] [phone] 09/22/2024 3:[address] [facility] [address] [place] [phone] 09/29/2024 3:00 PM EDT Appointment [facility] [address] [facility] [address] [place] [address] 10/06/2024 3:00 PM EDT Appointment [facility] [address] [phone] 02/28/2025 8:15 AM EDT Office Visit Pulmonolgy - [place] [address] [facility] [address] [place] [phone] Jaelyn Page MD 175 [facility] [address] [place] [address] documented as of this encounter Visit Diagnoses Diagnosis Suzgn-8-vuqbnlxfrz inhibitor deficiency (CMS/HCC)- Primary Omwfj-1-mdetrzsiiyn deficiency documented in this encounter Administered Medications Inactive Administered Medications - up to 3 most recent administrations Medication Order MAR Action Action Date Dose Rate Site alpha1-proteinase inhibitor (human) injection 6,900 mg 6,900 mg, intravenous, at 552 mL/hr, Administer over 15 Minutes, Once, On Wed09/01/24 at 1515, For 1 dose, weeklyIndications:Alpha-1-p roteinase inhibitor deficiency (CMS/HCC) New Bag 09/01/2024 3:41 PM EST 6,900 mg 552 mL/hr documented in this encounter Orders Medications Ordered That Mike ht Not Have Been Administered Count Last Ordered Date First Ordered Date sodium chloride 0.9 % infusion 1 09/01/2024 Nursing Count Last Ordered Date First Orde red Date ONC NURSING COMMUNICATION 1 09/01/2024 ONC NURSING COMMUNICATION 5 1 09/01/2024 ONC NURSING COMMUNICATION 9 1 09/01/2024 TREATMENT CONDITIONS 1 09/01/2024 Appointment Requests Count Last Ordered Date Fi rst Ordered Date ONCBCN INFUSION APPOINTMENT REQUEST 03 documented in this encounter Care Teams Pyrotechnics Press Tender Relationship Specialty Start Date End Date Jaiden Phillips MD [address] [place] [address] [address] [place], [place] PCP - General 07/26/23 documented as of this encounter
--- OUTSIDE RECORDS SUMMARY | 2024-09-11 18:30 | XMS_ITS | Encounter Summary ---
Author Organization [facility] [place] [address] Care Team Providers Care Bottler Helper Name Role Phone Jaiden Phillips MD Primary Care Provider + [phone] Reason for Visit * Episode Based Medications (Routine) - Authorized Specialty Diagnoses / Procedures Referred By Contbyron t Referred To Contact Diagnoses Yzbtl-2-lfstsbjmmf inhibitor deficiency (CMS/HCC) Jaelyn Page MD [address] [address] Phone: tel: fax: [facility] [address] [place] [phone] Phone: tel: fax: Referral ID Status Reason Start Date Expiration Date V isits Requested Visits Authorized [id number] Authorized 05/19/2024 05/19/2025 1 99 Encounter Details Date Type Department Care Team (Latest Contact Info) Description 08/25/2024 1:20 PM EST - 08/25/2024 11:59 PM EST Hospital Encounter [facility] [address] [place] [phone] Jaelyn Page MD [address] [address] Zdwce-8-sjjsgeydmk inhibitor deficiency (CMS/HCC) (Primary Dx) Discharge Disposition: [...] Description 09/15/2024 3:00 PM EST Appointment [facility] [address] [place] [phone] 09/22/2024 3:00 PM EDT Appointment [facility] [address] [place] [phone] 09/29/2024 3:00 PM EDT Appointment [facility] [address] [facility] [address] [place] [address] 10/06/2024 3:00 PM EDT Appointment [facility] [address] [phone] 02/28/2025 8:15 AM EDT Office Visit [facility] - [place] [address] [place] [address] Jaelyn Page MD 175 [facility] [address] [place] [address] documented as of this encounter Visit Diagnoses Diagnosis Ekyxu-8-opfeyuciam inhibitor deficiency (CMS/HCC)- Primary Fjxfv-0-lqlmqymnool deficiency documented in this encounter Administered Medications Inactive Administered Medications - up to 3 most recent administrations Medication Order MAR Action Action Date Dose Rate Site alpha1-proteinase inhibitor (human) injection 6,900 mg 6,900 mg, intravenous, Administer over 15 Minutes, Once, On Wed08/25/24 at 1345, For 1 dose, weeklyIndications:Hnilj-6-vmzsfr nase inhibitor deficiency (CMS/HCC) New Bag 08/25/2024 [...] 03 documented in this encounter Care Teams Bottler Helper Relationship Specialty Start Date End Date Jaiden Phillips MD [address] [place] [address] [address] [place], [place] PCP - General 07/26/23 documented as of this encounter
--- OUTSIDE RECORDS SUMMARY | 2024-09-11 18:30 | XMS_ITS | Encounter Summary ---
Author Organization [facility] [place] [address] Care Team Providers Care Shank Rander Name Role Phone Jaiden Phillips MD Primary Care Provider + [phone] Encounter Details Date Type Department Care Team [...] Info) Description 09/15/2024 3:00 PM EST Appointment [facility] [address] [place] [phone] 09/22/2024 3:00 PM EDT Appointment [facility] [address] [place] [phone] 09/29/2024 3:00 PM EDT Appointment [facility] [address] [place] [phone] 10/06/2024 3:00 PM EDT Appointment [facility] [address] [place] [phone] 02/28/2025 8:15 AM EDT Office Visit [facility]gy - [place] [address] [phone] Jaelyn Page MD [address] [address] documented as of this encounter Visit Diagnoses Not on filedocumented in this encounter Care Teams Shank Rander Relationship Specialty Start Date End Date Jaiden Phillips MD [address] [place] [address] [address] [place], [place] PCP - General 07/26/23 documented as of this encounter
--- OUTSIDE RECORDS SUMMARY | 2024-09-11 18:30 | XMS_ITS | Encounter Summary ---
Author Organization [facility] [place] [address] Care Team Providers Care Microsoft Net Developer Name Role Phone Jaiden Phillips MD Primary Care Provider + [phone] Reason for Visit * Reason Onset Date Comments Med Refill 08/09/2024 Encounter Details Date Type Department Care Team (Late st Contact Info) Description 08/09/2024 Telephone [facility] [place] [address] [phone] Jaelyn Page MD 175 [facility] 200 [place] [address] Med Refill Social History Tobacco Use Types [...] 08/09/2024 2:44 PM EST MAMADOU 02/23/24 * Yahirgeni Rafi - 08/09/2024 2:22 PM EST Patient called requesting a refill for his VENTOLIN HFA. Patient stated that he needs his inhaler chad. Please advice documented in this encounter Plan of Treatment Upcoming Encounters Date Type Department Care Team (Late st Contact Info) Description 09/15/2024 3:00 PM EST Appointment [address] [phone] 09/22/2024 3:00 PM EDT Appointment [address] [phone] 09/29/2024 3:00 PM EDT Appointment [address] [phone] 10/06/2024 3:00 PM EDT Appointment [address] [address] 02/28/2025 8:15 AM EDT Office Visit [facility] - [place] [address] [phone] Jaelyn Page MD [address] [address] documented as of this encounter Visit Diagnoses Not on filedocumented in this encounter Care Teams Microsoft Net Developer Relationship Specialty Start Date End Date Jaiden Phillips MD [address] [place] [address] [address] [place], [place] PCP - General 07/26/23 documented as of this encounter
--- OUTSIDE RECORDS SUMMARY | 2024-09-11 18:30 | XMS_ITS | Encounter Summary ---
Author Organization [facility] [place] [address] Care Team Providers Care Energy Project Manager Name Role Phone Jaiden Phillips MD Primary Care Provider + [phone] Reason for Visit * Episode Based Medications (Routine) - Authorized Specialty Diagnoses / Procedures Referred By Contbyron t Referred To Contact Diagnoses Ftvfk-6-bjpmuozsyd inhibitor deficiency (CMS/HCC) Jaelyn Page MD [address] [address] Phone: tel: fax: [facility] [address] [place] [phone] Phone: tel: fax: Referral ID Status Reason Start Date Expiration Date V isits Requested Visits Authorized [id number] Authorized 05/19/2024 05/19/2025 1 99 Encounter Details Date Type Department Care Team (Latest Contact Info) Description 08/18/2024 2:51 PM EST - 08/18/2024 11:59 PM EST Hospital Encounter [facility] [address] [place] [phone] Jaelyn Page MD [address] [address] Dbbqh-4-vbayaaqxde inhibitor deficiency (CMS/HCC) (Primary Dx) Discharge Disposition: [...] Info) Description 09/15/2024 3:00 PM EST Appointment [facility] [address] [place] [phone] 09/22/2024 3:00 PM EDT Appointment [facility] [address] [place] [phone] 09/29/2024 3:00 PM EDT Appointment [facility] [address] [place] [phone] 10/06/2024 3:00 PM EDT Appointment [facility] [address] [place] [phone] 02/28/2025 8:15 AM EDT Office Visit [facility] [place] 175 [facility] 200 [place] [phone] Jaelyn Page MD 175 [facility] [address] [place] [address] documented as of this encounter Visit Diagnoses Diagnosis Pcdji-4-qyqvvhjyid inhibitor deficiency (CMS/HCC)- Primary Mljug-7-msgecumvesx deficiency documented in this encounter Administered Medications Inactive Administered Medications - up to 3 most recent administrations Medication Order MAR Action Action Date Dose Rate Site alpha1-proteinase inhibitor (human) injection 6,900 mg 6,900 mg, intravenous, Administer over 15 Minutes, Once, On Wed08/18/24 at 1515, For 1 dose, weeklyIndications:Yuntl-8-pfilmg nase inhibitor deficiency (CMS/HCC) New Bag 08/18/2024 [...] 03 documented in this encounter Care Teams Energy Project Manager Relationship Specialty Start Date End Date Jaiden Phillips MD [address] [place] [address] [address] [place], [place] PCP - General 07/26/23 documented as of this encounter
--- OUTSIDE RECORDS SUMMARY | 2024-09-11 18:30 | XMS_ITS | Clinical Summary ---
Author Organization [facility] Address [address] [place] [address] Phone Care Team Providers Care Strategic Buyer Name Role Phone Jaiden Phillips MD Primary Care Provider [phone] Allergies No known active allergies Medications albuterol [...] inhaler Inhale 1 puff by mouth. 02/18/20 025 Discontinued albuterol HFA (Ventolin HFA) 90 [...] Active Problems Problem Noted Date Diagnosed Date Wfhzx-5-arwwvxhvvx inhibitor deficiency 12/06/19 22 Severe persistent asthma without complication Encounters Date Type Department Care Team Description 09/08/2024 3:00 PM EST Hospital Encounter [facility] Infusion Center [address] [place] [phone] Jaelyn Page MD Puphs-7-egsndhlegj inhibitor deficiency (CMS/HCC) (Primary Dx) 09/01/2024 2:47 PM EST - 09/01/2024 11:59 PM EST Hospital Encounter [facility] [address] [place] [phone] Jaelyn Page MD Xatiu-9-gyypwgsgiw inhibitor deficiency (CMS/HCC) (Primary Dx) Discharge Disposition: Home or Self Care 08/25/2024 3:30 PM EST [facility] [address] [phone] Jaelyn Page MD Severe persistent asthma without complication (CMS/HCC) (Primary Dx); Arhub-6-mfrcmxpgzw inhibitor deficiency (CMS/HCC) 08/25/2024 1:20 PM EST - 08/25/2024 11:59 PM EST Hospital Encounter [address] [phone] Jaelyn Page MD Lxjni-8-fvedfziphh inhibitor deficiency (CMS/HCC) (Primary Dx) Discharge Disposition: Home or Self Care 08/18/2024 2:51 PM EST - 08/18/2024 11:59 PM EST Hospital Encounter [facility] [address] [place] [phone] Jaelyn Page MD Pzixn-7-bpmfmapoyh inhibitor deficiency (CMS/HCC) (Primary Dx) Discharge Disposition: Home or Self Care 08/11/2024 2:57 PM EST - 08/11/2024 11:59 PM EST Hospital Encounter [facility] [address] [place] [phone] Jaelyn Page MD Gxxsz-1-chhjoosnwu inhibitor deficiency (CMS/HCC) (Primary Dx) Discharge Disposition: Home or Self Care 08/09/2024 Telephone [facility] [address] [phone] Jaelyn Page MD Med Refill 08/04/2024 3:00 PM EST - 08/04/2024 11:59 PM EST Hospital Encounter [facility] [address] [place] [phone] Jaelyn Page MD Uiyvv-2-fjkpdwfonu inhibitor deficiency (CMS/HCC) (Primary Dx) Discharge Disposition: Home or Self Care 07/28/2024 2:17 PM EST - 07/28/2024 11:59 PM EST Hospital Encounter [facility] [address] [place] [phone] Jaelyn Page MD Ccrqb-8-otpebmkaau inhibitor deficiency (CMS/HCC) (Primary Dx) Discharge Disposition: Home or Self Care 07/21/2024 2:53 PM EST - 07/21/2024 11:59 PM EST Hospital Encounter [facility] [address] [place] [phone] Jaelyn Page MD Rhyvf-7-ngkskghusv inhibitor deficiency (CMS/HCC) (Primary Dx) Discharge Disposition: Home or Self Care 07/14/2024 2:33 PM EST - 07/14/2024 11:59 PM EST Hospital Encounter [facility] [address] [place] [phone] Rawps-8-nhbytqchuh inhibitor deficiency (CMS/HCC) (Primary Dx) Discharge Disposition: Home or Self Care 07/07/2024 2:34 PM EST - 07/07/2024 11:59 PM EST Hospital Encounter [facility] [address] [place] [phone] Widaf-3-oihtqwuvmi inhibitor deficiency (CMS/HCC) (Primary Dx) Discharge Disposition: Home or Self Care 06/30/2024 2:31 PM EST - 06/30/2024 11:59 PM EST Hospital Encounter [facility] [address] [place] [phone] Gjdge-1-mtxcydhvbw inhibitor deficiency (CMS/HCC) (Primary Dx) Discharge Disposition: Home or Self Care 06/23/2024 2:48 PM EST - 06/23/2024 11:59 PM EST Hospital Encounter [facility] [address] [place] [phone] Fosdl-3-mkvqgedrsl inhibitor deficiency (CMS/HCC) (Primary Dx) Discharge Disposition: Home or Self Care 06/16/2024 2:54 PM EST - 06/16/2024 11:59 PM EST Hospital Encounter [facility] [address] [place] [phone] Rupay-5-nmlcecaodu inhibitor deficiency (CMS/HCC) (Primary Dx) Discharge Disposition: [...] Sign Reading Time Taken Comments Blood Pressure 139/76 09/08/2024 3:06 PM EST Pulse 75 09/08/2024 3:06 PM EST Temperature 36.6 ??C (97.9 ??F) 09/08/2024 3:06 PM ES T Respiratory Rate 18 09/08/2024 3:06 PM EST Oxygen Saturation 98% 09/08/2024 3:06 PM EST Inhaled Oxygen Concentration - - Weight 116 kg (255 lb) 09/08/2024 3:06 PM EST Height 182.9 cm (6') 08/25/2024 3:38 PM EST Body Mass Index 34.58 08/25/2024 3:38 PM EST Plan of Treatment Upcoming Encounters Date Type Department Care Team (Late st Contact Info) Description 09/15/2024 3:00 PM EST Appointment [facility] [address] [place] [phone] 09/22/2024 3:00 PM EDT Appointment [facility] [address] [phone] 09/29/2024 3:00 PM EDT Appointment [facility] [address] [phone] 10/06/2024 3:00 PM EDT Appointment [facility] [address] [phone] 02/28/2025 8:15 AM EDT Office Visit [facility]gy - [place] [address] [phone] Jaelyn Page MD [address] [address] Health Maintenance Due Date Last Done Comments [...] patient's age to complete this topic Insurance [facility] Care Teams Strategic Buyer Relationship Specialty Start Date End Date Jaiden Phillips MD 2 [facility] [address] [place], [place] PCP - General 07/26/23
--- OUTSIDE RECORDS SUMMARY | 2024-09-11 18:30 | XMS_ITS | Encounter Summary ---
Author Organization [facility] [place] [address] Care Team Providers Care Cnc Milling Machinist Name Role Phone Jaiden Phillips MD Primary Care Provider + [phone] Encounter Details Date Type Department Care Team [...] Info) Description 09/15/2024 3:00 PM EST Appointment [facility] [address] [place] [phone] 09/22/2024 3:00 PM EDT Appointment [facility] [address] [place] [phone] 09/29/2024 3:00 PM EDT Appointment [facility] [address] [place] [phone] 10/06/2024 3:00 PM EDT Appointment [facility] [address] [place] [phone] 02/28/2025 8:15 AM EDT Office Visit [facility] - [place] [address] [phone] Jaelyn Page MD [address] [address] documented as of this encounter Visit Diagnoses Not on filedocumented in this encounter Care Teams Cnc Milling Machinist Relationship Specialty Start Date End Date Jaiden Phillips MD [address] [place] [address] [address] [place], [place] PCP - General 07/26/23 documented as of this encounter
--- OUTSIDE RECORDS SUMMARY | 2024-09-11 18:30 | XMS_ITS | Encounter Summary ---
Author Organization [place] [address] Care Team Providers Care Sander Setter Name Role Phone Jaiden Phillips MD Primary Care Provider + [phone] Reason for Visit * Episode Based Medications (Routine) - Authorized Specialty Diagnoses / Procedures Referred By Contbyron t Referred To Contact Diagnoses Fxxkd-5-owhsdxijmi inhibitor deficiency (CMS/HCC) Jaelyn Page MD [address] [address] Phone: tel: fax: [facility] [address] [place] [phone] Phone: tel: fax: Referral ID Status Reason Start Date Expiration Date V isits Requested Visits Authorized [id number] Authorized 05/19/2024 05/19/2025 1 99 Encounter Details Date Type Department Care Team (Latest Contact Info) Description 08/11/2024 2:57 PM EST - 08/11/2024 11:59 PM EST Hospital Encounter [facility] [address] [place] [phone] Jaelyn Page MD [address] [address] Bidny-1-fpwrduzoat inhibitor deficiency (CMS/HCC) (Primary Dx) Discharge Disposition: [...] Info) Description 09/15/2024 3:[address] [facility] [address] [place] [phone] 09/22/2024 3:[address] [facility] [address] [place] [phone] 09/29/2024 3:[address] [facility] [address] [place] [phone] 10/06/2024 3:[address] [facility] [address] [place] [phone] 02/28/2025 8:15 AM EDT Office Visit Pul[facility]olgy - [place] [address] [facility] [address] [place] [phone] Jaelyn Page MD 175 [facility] [address] [place] [address] documented as of this encounter Visit Diagnoses Diagnosis Mylaz-7-pzunmbrdle inhibitor deficiency (CMS/HCC)- Primary Ygxjl-2-vsapwuvtxxb deficiency documented in this encounter Administered Medications [...] 5 1 08/11/2024 ONC NURSING COMMUNICATION 9 08/11/2024 TREATMENT CONDITIONS 1 08/11/2024 Appointment Requests Count Last Ordered Date Fi rst Ordered Date ONCBCN INFUSION APPOINTMENT REQUEST 03 documented in this encounter Care Teams Sander Setter Relationship Specialty Start Date End Date Jaiden Phillips MD [address] [place] [address] [address] [place], [place] PCP - General 07/26/23 documented as of this encounter
--- OUTSIDE RECORDS SUMMARY | 2024-09-11 18:30 | XMS_ITS | Encounter Summary ---
Author Organization [facility] [place] [address] Care Team Providers Care Manager Sustainability Name Role Phone Jaiden Phillips MD Primary Care Provider + [phone] Reason for Visit * Reason Comments COPD F/u copd Encounter Details Date Type Department Care Team (Late st Contact Info) Description 08/25/2024 3:30 PM EST Office Visit Pulmonolgy - [place] 175 [facility] [address] [place] [phone] Jaelyn Page MD 175 [facility] [address] [place] [address] Severe persistent asthma without complication (CMS/HCC) (Primary Dx); Qqcqp-7-grzybxnwuf inhibitor deficiency (CMS/HCC) Social History Tobacco Use [...] Patient Active Problem List Diagnosis Date Noted Usqeh-6-ftozlfwpkj inhibitor deficiency ([facility]) 12/05/2021 Severe persistent asthma without complication ([facility]) 08/03/2018 No past surgical history on [...] ICD-9-CM 1. Severe persistent asthma without complication ([facility]) J45.50 493.90 2. Cqogn-3-fzyyhuwmqj inhibitor deficiency ([facility]) E88.01 273.4 PLAN: Assessment & Plan 1. [...] Info) Description 09/15/2024 3:00 PM EST Appointment [address] [phone] 09/22/2024 3:00 PM EDT Appointment [address] [phone] 09/29/2024 3:00 PM EDT Appointment [address] [phone] 10/06/2024 3:00 PM EDT Appointment [address] [phone] 02/28/2025 8:15 AM EDT Office Visit [facility] - [place] [address] [phone] Jaelyn Page MD [address] [address] documented as of this encounter Visit Diagnoses Diagnosis Severe persistent asthma without complication (CMS/HCC)- Primary Rvrpi-0-owamkseqmn inhibitor deficiency (CMS/HCC) Nhfdc-3-wcmsbyqrzug deficiency documented in this encounter Discontinued Medications [...] documented as of this encounter Care Teams Manager Sustainability Relationship Specialty Start Date End Date Jaiden hPillips MD [address] [place] [address] PCP - General 07/26/23 documented as of this encounter
--- OUTSIDE RECORDS SUMMARY | 2024-09-11 18:30 | XMS_ITS | Encounter Summary ---
Author Organization [place] [address] Care Team Providers Care Supervisor Throwing Department Name Role Phone Jaiden Phillips MD Primary Care Provider + [phone] Reason for Visit * Episode Based Medications (Routine) - Authorized Specialty Diagnoses / Procedures Referred By Contbyron t Referred To Contact Diagnoses Aaxgo-2-igispzvlza inhibitor deficiency (CMS/HCC) Jaelyn Page MD [address] [address] Phone: tel: fax: [facility] [address] [place] [phone] Phone: tel: fax: Referral ID Status Reason Start Date Expiration Date V isits Requested Visits Authorized [id number] Authorized 05/19/2024 05/19/2025 1 99 Encounter Details Date Type Department Care Team (Latest Contact Info) Description 09/08/2024 3:00 PM EST Hospital Encounter [facility] [address] [place] [phone] Jaelyn Page MD [address] [address] Yghog-0-wvzfgemuko inhibitor deficiency (CMS/HCC) (Primary Dx) Social History Tobacco Use Types Packs/Day Years [...] (255 lb) 09/08/2024 3:06 PM EST Height - - Body Mass Index 34.58 08/25/2024 3:38 PM EST documented in this encounter Progress Notes * Silke Ji RN - 09/08/2024 3:00 PM EST 1520- Pt arrived today for weekly Prolastin-C infusions. Pt feeling well overall and denies acute complaints or changes since last visit. PIV obtained. Treatment released. Pt resting comfortably at this time. Call valladares within reach. 1605- Pt rested comfortably throughout treatment. Prolastin completed without incident. Next appts in place and reviewed. No further questions. PIV removed. Pt left unit, stable at D/C. documented in this encounter Plan of Treatment Upcoming Encounters Date Type Department Care Team (Late st Contact Info) Description 09/15/2024 3:00 PM EST Appointment [facility] [address] [place] [phone] 09/22/2024 3:00 PM EDT Appointment [facility] [address] [place] [phone] 09/29/2024 3:00 PM EDT Appointment [facility] [address] [phone] 10/06/2024 3:00 PM EDT Appointment [facility] [address] [phone] 02/28/2025 8:15 AM EDT Office Visit [place]olgy - [place] [address] [facility] [address] [place] [address] Jaelyn Page MD 175 [facility] [address] [place] [address] documented as of this encounter Visit Diagnoses Diagnosis Lfhjg-4-gmpehyvmqi inhibitor deficiency (CMS/HCC)- Primary Fzazl-2-gbxzzcjjzuh deficiency documented in this encounter Administered Medications Inactive Administered Medications - up to 3 most recent administrations Medication Order MAR Action Action Date Dose Rate Site alpha1-proteinase inhibitor (human) injection 6,900 mg 6,900 mg, intravenous, at 552 mL/hr, Administer over 15 Minutes, Once, On Wed09/08/24 at 1530, For 1 dose, weeklyIndications:Alpha-1-p roteinase inhibitor deficiency (CMS/HCC) New Bag 09/08/2024 3:47 PM EST 6,900 mg 552 mL/hr documented in this encounter Orders Medications Ordered That Mike ht Not Have Been Administered Count Last Ordered Date First Ordered Date alpha1-proteinase inhibitor (human) injection 6,900 mg 1 09/08/2024 Nursing Count Last Ordered Date First Orde red Date ONC NURSING COMMUNICATION 1 09/08/2024 ONC NURSING COMMUNICATION 5 1 09/08/2024 ONC NURSING COMMUNICATION 9 1 09/08/2024 TREATMENT CONDITIONS 1 09/08/2024 Appointment Requests Count Last Ordered Date Fi rst Ordered Date ONCBCN INFUSION APPOINTMENT REQUEST 03 documented in this encounter Care Teams Supervisor Throwing Department Relationship Specialty Start Date End Date Jaiden Phillips MD [address] [place] [address] [address] [place], [place] PCP - General 07/26/23 documented as of this encounter
--- OUTSIDE RECORDS SUMMARY | 2024-09-11 18:30 | XMS_ITS | Clinical Summary ---
Author Organization [facility] Address [address] [place] [address] Care Team Providers Care Suction Worker Name Role Phone Jaiden Phillips MD Primary Care Provider +[phone]- [phone] Allergies No known active allergies Medications Medication [...] Active Problems Problem Noted Date Diagnosed Date Bvydf-6-tysnwdebsl inhibitor deficiency 12/06/19 22 Social History Tobacco [...] age to complete this topic Care Teams Suction Worker Relationship Specialty Start Date End Date Jaiden Phillips MD [address] [place] [address] Dr Jessica [place] [phone] PCP - General Internal Medicine 07/26/23
== END 2024-09-11 16:38 | disposition home or self-care (01) ==
PROVIDERS: PCP Internal Medicine
DX: R20.0 Anesthesia of skin (principal); M54.50 Low back pain, unspecified

== ENCOUNTER → 2024-09-11 15:41 | Outpatient (BNVA) | payer OTHER, SELFPAY | PROVIDERS: PCP Internal Medicine ==

== ENCOUNTER 2024-09-26 07:47 | Outpatient (REF) | payer OTHER, SELFPAY ==
--- NOTE | 2024-09-26 07:50 | EMG_ITS ---
FINDINGS: Left tibial and peroneal motor studies were performed. Left superficial peroneal, sural, sensory studies were performed. Tibial H-reflex was obtained. Needle examination was performed. IMPRESSION: 1. Mild left mid lumbar radiculopathy. 2. 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 MD MICKIE Johns/NOAH / [id number]
--- OUTSIDE RECORDS SUMMARY | 2024-09-26 07:50 | XMS_ITS | Encounter Summary ---
Author Organization [facility] [place] [address] Care Team Providers Care Reservations Sales Agent Name Role Phone Jaiden Phillips MD Primary Care Provider + [phone] Encounter Details Date Type Department Care Team [...] Care Team (Late st Contact Info) Description 09/29/2024 3:00 PM EDT Appointment [facility] [address] [phone] 10/06/2024 3:00 PM EDT Appointment [facility] [address] [phone] 02/28/2025 8:15 AM EDT Office Visit Pulmonolgy - [place] 175 [facility] [address] [place] [address] Jaelyn Page MD 175 [facility] [address] [place] [address] documented as of this encounter Visit Diagnoses Not on filedocumented in this encounter Care Teams Reservations Sales Agent Relationship Specialty Start Date End Date Jaiden Phillips MD [address] [place] [address] [address] [place], [place] PCP - General 07/26/23 documented as of this encounter
--- OUTSIDE RECORDS SUMMARY | 2024-09-26 07:50 | XMS_ITS | Encounter Summary ---
Author Organization [facility] [place] [address] Care Team Providers Care Sausage Maker Name Role Phone Jaiden Phillips MD Primary Care Provider + [phone] Reason for Visit * Reason Onset Date Comments Med Refill 08/09/2024 Encounter Details Date Type Department Care Team (Late st Contact Info) Description 08/09/2024 [facility] [place] [address] [phone] Jaelyn Page MD 175 [facility] 200 [place] [address] Med Refill Social History Tobacco Use Types [...] Info) Description 09/29/2024 3:00 PM EDT Appointment [facility] [address] [phone] 10/06/2024 3:00 PM EDT Appointment [facility] [address] [phone] 02/28/2025 8:15 AM EDT Office Visit Pulmonolgy - [place] 175 [facility] [address] [place] [phone] Jaelyn Page MD 175 [facility] 200 [place] [address] documented as of this encounter Visit Diagnoses Not on filedocumented in this encounter Care Teams Sausage Maker Relationship Specialty Start Date End Date Jaiden Phillips MD [address] [place] [address] [address] [place], [place] PCP - General 07/26/23 documented as of this encounter
--- OUTSIDE RECORDS SUMMARY | 2024-09-26 07:50 | XMS_ITS | Encounter Summary ---
Author Organization [facility] [place] [address] Care Team Providers Care Rn Neonatal Icu Name Role Phone Jaiden Phillips MD Primary Care Provider + [phone] Encounter Details Date Type Department Care Team [...] Info) Description 09/29/2024 3:00 PM EDT Appointment [facility] [address] [phone] 10/06/2024 3:00 PM EDT Appointment [facility] [address] [address] 02/28/2025 8:15 AM EDT Office Visit Pulmonolgy - [place] 175 [facility] [address] [place] [address] Jaelyn Page MD 175 [facility] 200 [place] [address] documented as of this encounter Visit Diagnoses Not on filedocumented in this encounter Care Teams Rn Neonatal Icu Relationship Specialty Start Date End Date Jaiden Phillips MD [address] [place] [address] [address] [place], [place] PCP - General 07/26/23 documented as of this encounter
--- OUTSIDE RECORDS SUMMARY | 2024-09-26 07:50 | XMS_ITS | Encounter Summary ---
Author Organization [facility] [place] [address] Care Team Providers Care Parts Expediter Name Role Phone Jaiden Phillips MD Primary Care Provider + [phone] Reason for Visit * Episode Based Medications (Routine) - Authorized Specialty Diagnoses / Procedures Referred By Wesley t Referred To Contact Diagnoses Jzxhb-4-vmwjnnvjnt inhibitor deficiency (CMS/HCC) Jaelyn Page MD [address] [address] Phone: tel: fax: [address] [address] Phone: tel: fax: Referral ID Status Reason Start Date Expiration Date V isits Requested Visits Authorized [id number] Authorized 05/19/2024 05/19/2025 1 99 Encounter Details Date Type Department Care Team (Latest Contact Info) Description 09/22/2024 2:36 PM EDT - 09/22/2024 11:59 PM EDT Hospital Encounter [address] [phone] Jaelyn Page MD [address] [address] Tlakh-0-tumreepdsk inhibitor deficiency (CMS/HCC) (Primary Dx) Discharge Disposition: [...] Sign Reading Time Taken Comments Blood Pressure 122/85 09/22/2024 2:39 PM EDT Pulse 86 09/22/2024 2:39 PM EDT Temperature 35.7 ??C (96.3 ??F) 09/22/2024 2:39 PM ED T Respiratory Rate - - Oxygen Saturation 97% 09/22/2024 2:39 PM EDT Inhaled Oxygen Concentration - - Weight 116 kg (255 lb) 09/22/2024 2:39 PM EDT Height - - Body Mass Index 34.58 [...] THE LUNGS DAILY FOR 30 DAYS. 11/16/2021 Wixela Inhub 500-50 mcg/dose diskus inhaler INHALE 1 PUFF BY MOUTH 2 (TWO) TIMES A DAY. RINSE MOUTH WITH WATER AFTER USE TO REDUCE AFTERTASTE AND INCIDENCE OF CANDIDIASIS. DO NOT SWALLOW. 180 each 4 09/20/2024 documented as of this encounter Discharge Disposition Disposition Code Departure Means Destination Home or Self Care documented in this encounter Progress Notes * Kathryn Fox RN - 09/22/2024 3:00 PM EDT Patient arrives ambulatory to unit for treatment of prolastin. Patient states that he's doing well.Patient has no questions/concerns for the provider at this time. Vitals are stable. Treatment released to pharmacy. IV placed in the left mid FA, +BR. NS KVO. 1507 Prolastin infusing over 15 minutes, preferred by patient. Call valladares within reach. 1552 Patient tolerated treatment well, without adverse reaction/complaint. Next appt scheduled. IV removed,intact. Patient discharged stable with steady gait. documented in this encounter Plan of Treatment Upcoming Encounters Date Type Department Care Team (Late st Contact Info) Description 09/29/2024 3:00 PM EDT Appointment [facility] [address] [place] [phone] 10/06/2024 3:00 PM EDT Appointment [facility] 271 [facility] 2nd [place] [phone] 02/28/2025 8:15 AM EDT Office Visit Pulmonolgy - [place] 175 [facility] [address] [place] [address] Jaelyn Page MD 175 [facility] [address] [place] [address] documented as of this encounter Visit Diagnoses Diagnosis Jqdhu-9-kymaekzyam inhibitor deficiency (CMS/HCC)- Primary Nmfbs-2-fxijvjanyjh deficiency documented in this encounter Administered Medications Inactive Administered Medications - up to 3 most recent administrations Medication Order MAR Action Action Date Dose Rate Site alpha1-proteinase inhibitor (human) injection 6,900 mg 6,900 mg, intravenous, at 552 mL/hr, Administer over 15 Minutes, Once, On Wed09/22/24 at 1500, For 1 dose, weeklyIndications:Alpha-1-p roteinase inhibitor deficiency (CMS/HCC) New Bag 09/22/2024 3:07 PM EDT 6,900 mg 552 mL/hr documented in this encounter Orders Medications Ordered That Mike ht Not Have Been Administered Count Last Ordered Date First Ordered Date alpha1-proteinase inhibitor (human) injection 6,900 mg 1 09/22/2024 Nursing Count Last Ordered Date First Orde red Date ONC NURSING COMMUNICATION 1 09/22/2024 ONC NURSING COMMUNICATION 5 1 09/22/2024 ONC NURSING COMMUNICATION 9 1 09/22/2024 TREATMENT CONDITIONS 1 09/22/2024 Appointment Requests Count Last Ordered Date Fi rst Ordered Date ONCBCN INFUSION APPOINTMENT REQUEST 03 documented in this encounter Care Teams Parts Expediter Relationship Specialty Start Date End Date Jaiden Phillips MD [address] [place] [address] Dr [address] [place] PCP - General 07/26/23 documented as of this encounter
--- OUTSIDE RECORDS SUMMARY | 2024-09-26 07:50 | XMS_ITS | Encounter Summary ---
Author Organization [facility] [address] Care Team Providers Care Yoke Setter Name Role Phone Jaiden Phillips MD Primary Care Provider + [phone] Reason for Visit * Episode Based Medications (Routine) - Authorized Specialty Diagnoses / Procedures Referred By Contbyron t Referred To Contact Diagnoses Bttkl-6-dioikadlyv inhibitor deficiency (CMS/HCC) Jaelyn Page MD [address] [address] Phone: tel: fax: [facility] [address] [place] [phone] Phone: tel: fax: Referral ID Status Reason Start Date Expiration Date V isits Requested Visits Authorized [id number] Authorized 05/19/2024 05/19/2025 1 99 Encounter Details Date Type Department Care Team (Latest Contact Info) Description 09/15/2024 2:48 PM EST - 09/15/2024 11:59 PM EST Hospital Encounter [facility] [address] [place] [phone] Jaelyn Page MD [address] [address] Ymcwr-5-qdvihsagqp inhibitor deficiency (CMS/HCC) (Primary Dx) Discharge Disposition: [...] Sign Reading Time Taken Comments Blood Pressure 137/89 09/15/2024 2:55 PM EST Pulse 74 09/15/2024 2:55 PM EST Temperature 36.9 ??C (98.4 ??F) 09/15/2024 2:55 PM ES T Respiratory Rate 14 09/15/2024 2:55 PM EST Oxygen Saturation 100% 09/15/2024 2:55 PM EST Inhaled Oxygen Concentration - - Weight 116 kg (255 lb) 09/15/2024 2:55 PM EST Height - - Body [...] FOR 30 DAYS. 11/16/2021 fluticasone propion-salmeter oL (Wixela Inhub) 500-50 mcg/dose diskus inhaler Inhale 1 puff by mouth 2 (two) times a day. Rinse mouth with water after use to reduce aftertaste and incidence of candidiasis. Do not swallow. 1 each 08/25/2024 5 documented as of this encounter Discharge Disposition Disposition Code Departure Means Destination Home or Self Care documented in this encounter Progress Notes * Shira Espino RN - 09/15/2024 3:00 PM EST 1455 Patient arrives ambulatory for scheduled infusion. Patient feeling in usual state of health with noacute concerns. 1510 Peripheral IV started and NS infusion running. Patient comfortable chairside. 1525 Prolastin C infusion running. Patient comfortable chairside 1544 Infusion complete, line flushed. Peripheral IV removed and dry dressing applied. Patient ambulated off unit in stable condition. Next appointments in place. documented in this encounter Plan of Treatment Upcoming Encounters Date Type Department Care Team (Late st Contact Info) Description 09/29/2024 3:00 PM EDT Appointment [facility] [address] [place] [phone] 10/06/2024 3:00 PM EDT Appointment [facility] 271 [facility] 2nd [place] [phone] 02/28/2025 8:15 AM EDT Office Visit Pulmonolgy - [place] 175 [facility] [address] [place] [address] Jaelyn Page MD 175 [facility] [address] [place] [address] documented as of this encounter Visit Diagnoses Diagnosis Bvefg-3-jeknsennwn inhibitor deficiency (CMS/HCC)- Primary Ydvrv-3-trusczievlo deficiency documented in this encounter Administered Medications Inactive Administered Medications - up to 3 most recent administrations Medication Order MAR Action Action Date Dose Rate Site alpha1-proteinase inhibitor (human) injection 6,900 mg 6,900 mg, intravenous, at 552 mL/hr, Administer over 15 Minutes, Once, On Wed09/15/24 at 1530, For 1 dose, weeklyIndications:Alpha-1-p roteinase inhibitor deficiency (CMS/HCC) New Bag 09/15/2024 3:25 PM EST 6,900 mg 552 mL/hr documented in this encounter Orders Medications Ordered That Mike ht Not Have Been Administered Count Last Ordered Date First Ordered Date sodium chloride 0.9 % infusion 1 09/15/2024 Nursing Count Last Ordered Date First Orde red Date ONC NURSING COMMUNICATION 1 09/15/2024 ONC NURSING COMMUNICATION 12 1 09/15/2024 ONC NURSING COMMUNICATION 5 1 09/15/2024 ONC NURSING COMMUNICATION 9 1 09/15/2024 TREATMENT CONDITIONS 1 09/15/2024 Appointment Requests Count Last Ordered Date Fi rst Ordered Date ONCBCN INFUSION APPOINTMENT REQUEST 03 1 documented in this encounter Care Teams Yoke Setter Relationship Specialty Start Date End Date Jaiden Phillips MD [address] [place] [address] Dr [address] [place], [place] PCP - General 07/26/23 documented as of this encounter
--- OUTSIDE RECORDS SUMMARY | 2024-09-26 07:50 | XMS_ITS | Encounter Summary ---
Author Organization [facility] [place] [address] Care Team Providers Care Electrical Systems Design Engineer Name Role Phone Jaiden Phillips MD Primary Care Provider + [phone] Reason for Visit * Episode Based Medications (Routine) - Authorized Specialty Diagnoses / Procedures Referred By Contbyron t Referred To Contact Diagnoses Jtufu-2-qvkhlpteyx inhibitor deficiency (CMS/HCC) Jaelyn Page MD [address] [address] Phone: tel: fax: [facility] [address] [place] [phone] Phone: tel: fax: Referral ID Status Reason Start Date Expiration Date V isits Requested Visits Authorized [id number] Authorized 05/19/2024 05/19/2025 1 99 Encounter Details Date Type Department Care Team (Latest Contact Info) Description 09/01/2024 2:47 PM EST - 09/01/2024 11:59 PM EST Hospital Encounter [facility] [address] [place] [phone] Jaelyn Page MD [address] [address] Bgbkm-2-kffadhfwqr inhibitor deficiency (CMS/HCC) (Primary Dx) Discharge Disposition: [...] Info) Description 09/29/2024 3:00 PM EDT Appointment [facility] [address] [place] [phone] 10/06/2024 3:00 PM EDT Appointment [facility] [address] [place] [phone] 02/28/2025 8:15 AM EDT Office Visit Pulmonolgy - [place] 175 [facility] 200 [place] [phone] Jaelyn Page MD 175 [facility] [address] [place] [address] documented as of this encounter Visit Diagnoses Diagnosis Nwvyr-7-nfzdlmhjyf inhibitor deficiency (CMS/HCC)- Primary Bxunx-6-tbiaxsiggfg deficiency documented in this encounter Administered Medications [...] 03 documented in this encounter Care Teams Electrical Systems Design Engineer Relationship Specialty Start Date End Date Jaiden Phillips MD [address] [place] [address] [address] [place], [place] PCP - General 07/26/23 documented as of this encounter
--- OUTSIDE RECORDS SUMMARY | 2024-09-26 07:50 | XMS_ITS | Encounter Summary ---
Author Organization [facility] [place] [address] Care Team Providers Care Knitter Wire Mesh Name Role Phone Jaiden Phillips MD Primary Care Provider + [phone] Encounter Details Date Type Department Care Team [...] Info) Description 09/29/2024 3:00 PM EDT Appointment [facility] [address] [address] 10/06/2024 3:00 PM EDT Appointment [facility] [address] [address] 02/28/2025 8:15 AM EDT Office Visit Pulmonolgy - [place] 175 [facility] [address] [place] [address] Jaelyn Page MD 175 [facility] [address] [place] [address] documented as of this encounter Visit Diagnoses Not on filedocumented in this encounter Care Teams Knitter Wire Mesh Relationship Specialty Start Date End Date Jaiden Phillips MD [address] [place] [address] [address] [place], [place] PCP - General 07/26/23 documented as of this encounter
--- OUTSIDE RECORDS SUMMARY | 2024-09-26 07:50 | XMS_ITS | Clinical Summary ---
Author Organization [facility] Address [address] [place] [address] Care Team Providers Care Global Marketing Intern Name Role Phone Jaiden Phillips MD Primary Care Provider +[phone]- [phone] Allergies No known active allergies Medications Medication [...] Active Problems Problem Noted Date Diagnosed Date Xwwkb-2-txpyqftufu inhibitor deficiency 12/06/19 22 Social History Tobacco [...] age to complete this topic Care Teams Global Marketing Intern Relationship Specialty Start Date End Date Jaiden Phillips MD [address] [place] [address] Dr Jessica [place] [id number] PCP - General Internal Medicine 07/26/23
--- OUTSIDE RECORDS SUMMARY | 2024-09-26 07:50 | XMS_ITS | Encounter Summary ---
Author Organization [facility] [place] [address] Care Team Providers Care Prospecting Driller Helper Name Role Phone Jaiden Phillips MD Primary Care Provider + [phone] Reason for Visit * Episode Based Medications (Routine) - Authorized Specialty Diagnoses / Procedures Referred By Contbyron t Referred To Contact Diagnoses Dralv-4-pyutahdybo inhibitor deficiency (CMS/HCC) Jaelyn Page MD [address] [address] Phone: tel: fax: [facility] [address] [place] [phone] Phone: tel: fax: Referral ID Status Reason Start Date Expiration Date V isits Requested Visits Authorized [id number] Authorized 05/19/2024 05/19/2025 1 99 Encounter Details Date Type Department Care Team (Latest Contact Info) Description 09/08/2024 3:00 PM EST - 09/08/2024 11:59 PM EST Hospital Encounter [facility] [address] [place] [phone] Jaelyn Page MD [address] [address] Iufri-7-jpzkilouua inhibitor deficiency (CMS/HCC) (Primary Dx) Discharge Disposition: [...] candidiasis. Do not swallow. 1 each 08/25/2024 documented as of this encounter Discharge Disposition [...] Info) Description 09/29/2024 3:[address] [facility] [address] [place] [phone] 10/06/2024 3:[address] [facility] 271 [facility] 2nd [place] [phone] 02/28/2025 8:15 AM EDT Office Visit Pulmonolgy - [place] 175 [facility] [address] [place] [phone] Jaelyn Page MD 175 [facility] [address] [place] [address] documented as of this encounter Visit Diagnoses Diagnosis Kzmob-2-zaqkwnuahp inhibitor deficiency (CMS/HCC)- Primary Fxpwr-9-delskpdfico deficiency documented in this encounter Administered Medications [...] 1 documented in this encounter Care Teams Prospecting Driller Helper Relationship Specialty Start Date End Date Jaiden Phillips MD [address] [place] [address] Dr [address] [place] PCP - General 07/26/23 documented as of this encounter
--- OUTSIDE RECORDS SUMMARY | 2024-09-26 07:50 | XMS_ITS | Clinical Summary ---
Author Organization [facility] Address [address] [place] [address] Phone Care Team Providers Care Load Tallier Name Role Phone Jaiden Phillips MD Primary Care Provider [phone] Allergies No known active allergies Medications albuterol [...] if needed for wheezing. 6.7 g 08/25/19 25 026 Active albuterol 2.5 mg /3 mL (0.083 %) nebulizer solution Take 3 mL (2.5 mg total) by nebulization every 4 (four) hours if needed for wheezing. 300 mL 08/25/19 25 026 Active levalbuterol (XOPENEX HFA) 45 mcg/actuation inhaler Inhale 2 puffs by mouth every 4 (four) hours if needed for wheezing. 1 g 08/28/19 25 026 Active Wixela Inhub 500-50 mcg/dose diskus inhaler INHALE 1 PUFF BY MOUTH 2 (TWO) TIMES A DAY. RINSE MOUTH WITH WATER AFTER USE TO REDUCE AFTERTASTE AND INCIDENCE OF CANDIDIASIS. DO NOT SWALLOW. 180 each 09/21/19 25 Active albuterol HFA (Ventolin HFA) 90 mcg/actuation inhaler Inhale 2 puffs by mouth every 6 (six) hours if needed for wheezing. 6.7 g 08/09/19 25 025 Discontinued fluticasone propion-salmet Andria (Wixela Inhub) 500-50 mcg/dose diskus inhaler Inhale 1 puff by mouth 2 (two) times a day. Rinse mouth with water after use to reduce aftertaste and incidence of candidiasis. Do not swallow. 1 each 08/25/19 25 025 Discontinued Active Problems Problem Noted Date Diagnosed Date Ojmvk-0-ayjmgfkshd inhibitor deficiency 12/06/19 22 Severe persistent asthma without complication Encounters Date Type Department Care Team Description 09/22/2024 2:36 PM EDT - 09/22/2024 11:59 PM EDT Hospital Encounter [facility] [address] [place] [address] St 2[address] [place] [address] Jaelyn Page MD Eotwm-6-amawoduzhc inhibitor deficiency (CMS/HCC) (Primary Dx) Discharge Disposition: Home or Self Care 09/15/2024 2:48 PM EST - 09/15/2024 11:59 PM EST Hospital Encounter [facility] [address] [place] [phone] Jaelyn Page MD Gyqiz-5-anvyhtwacy inhibitor deficiency (CMS/HCC) (Primary Dx) Discharge Disposition: Home or Self Care 09/08/2024 3:00 PM EST - 09/08/2024 11:59 PM EST Hospital Encounter [address] [phone] Jaelyn Page MD Ushqc-9-vznbkzvkma inhibitor deficiency (CMS/HCC) (Primary Dx) Discharge Disposition: Home or Self Care 09/01/2024 2:47 PM EST - 09/01/2024 11:59 PM EST Hospital Encounter [address] [phone] Jaelyn Page MD Fwiny-2-zbilurnlto inhibitor deficiency (CMS/HCC) (Primary Dx) Discharge Disposition: Home or Self Care 08/25/2024 3:30 PM EST [facility] [address] [phone] Jaelyn Page MD Severe persistent asthma without complication (CMS/HCC) (Primary Dx); Rszpx-4-glfswhrfnm inhibitor deficiency (CMS/HCC) 08/25/2024 1:20 PM EST - 08/25/2024 11:59 PM EST Hospital Encounter [address] [phone] Jaelyn Page MD Iakld-3-pjwmaivucn inhibitor deficiency (CMS/HCC) (Primary Dx) Discharge Disposition: Home or Self Care 08/18/2024 2:51 PM EST - 08/18/2024 11:59 PM EST Hospital Encounter [address] [phone] Jaelyn Page MD Wouaa-7-xsrtzukrpw inhibitor deficiency (CMS/HCC) (Primary Dx) Discharge Disposition: Home or Self Care 08/11/2024 2:57 PM EST - 08/11/2024 11:59 PM EST Hospital Encounter [facility] [address] [place] [phone] Jaelyn Page MD Nyrvq-4-kpzdlmherx inhibitor deficiency (CMS/HCC) (Primary Dx) Discharge Disposition: Home or Self Care 08/09/2024 [facility] [address] [phone] Jaelyn Page MD Med Refill 08/04/2024 3:00 PM EST - 08/04/2024 11:59 PM EST Hospital Encounter [facility] [address] [place] [phone] Jaelyn Page MD Fvrrr-1-eeykaliyot inhibitor deficiency (CMS/HCC) (Primary Dx) Discharge Disposition: Home or Self Care 07/28/2024 2:17 PM EST - 07/28/2024 11:59 PM EST Hospital Encounter [facility] [address] [place] [phone] Jaelyn Page MD Sfpbx-0-rqjvrmrxwl inhibitor deficiency (CMS/HCC) (Primary Dx) Discharge Disposition: Home or Self Care 07/21/2024 2:53 PM EST - 07/21/2024 11:59 PM EST Hospital Encounter [facility] [address] [place] [phone] Jaelyn Page MD Arwed-7-akwjeoypqn inhibitor deficiency (CMS/HCC) (Primary Dx) Discharge Disposition: Home or Self Care 07/14/2024 2:33 PM EST - 07/14/2024 11:59 PM EST Hospital Encounter [facility] [address] [place] [phone] Cztie-3-ufxnbdneoc inhibitor deficiency (CMS/HCC) (Primary Dx) Discharge Disposition: Home or Self Care 07/07/2024 2:34 PM EST - 07/07/2024 11:59 PM EST Hospital Encounter [facility] [address] [place] [phone] Runxr-6-ybssvzztqz inhibitor deficiency (CMS/HCC) (Primary Dx) Discharge Disposition: Home or Self Care 06/30/2024 2:31 PM EST - 06/30/2024 11:59 PM EST Hospital Encounter [facility] [address] [place] [phone] Hgefo-6-geekkkenty inhibitor deficiency (CMS/HCC) (Primary Dx) Discharge Disposition: [...] 09/22/2024 2:39 PM ED T Respiratory Rate 14 09/15/2024 2:55 PM EST Oxygen Saturation 97% 09/22/2024 2:39 PM EDT Inhaled Oxygen Concentration - - Weight 116 kg (255 lb) 09/22/2024 2:39 PM EDT Height 182.9 cm (6') 08/25/2024 3:38 PM EST Body Mass Index 34.58 08/25/2024 3:38 PM EST Plan of Treatment Upcoming Encounters Date Type Department Care Team (Late st Contact Info) Description 09/29/2024 3:00 PM EDT Appointment [facility] [address] [place] [phone] 10/06/2024 3:00 PM EDT Appointment [facility] [address] [place] [phone] 02/28/2025 8:15 AM EDT Office Visit [facility] - [place] 175 [facility] [address] [place] [address] Jaelyn Page MD 175 [facility] 200 [place] [address] Health Maintenance Due Date Last Done Comments [...] Influencers of Health Screening 06/20/2022 COVID-19 Vaccine ( - 2023-2 5 season) 2024 06/28/2021, 08/28/2020, [...] patient's age to complete this topic [place] [address] [place] [address] Care Teams Load Tallier Relationship Specialty Start Date End Date Jaiden Phillips MD 2 [facility] [address] [place], [place] PCP - General 07/26/23
--- OUTSIDE RECORDS SUMMARY | 2024-09-26 07:50 | XMS_ITS | Encounter Summary ---
Author Organization [facility] [place] [address] Care Team Providers Care Frame Aligner Name Role Phone Jaiden Phillips MD Primary Care Provider + [phone] Encounter Details Date Type Department Care Team [...] Info) Description 09/29/2024 3:00 PM EDT Appointment [facility] [address] [phone] 10/06/2024 3:00 PM EDT Appointment [facility] [address] [phone] 02/28/2025 8:15 AM EDT Office Visit Pulmonolgy - [place] 175 [facility] [address] [place] [address] Jaelyn Page MD 175 [facility] 200 [place] [address] documented as of this encounter Visit Diagnoses Not on filedocumented in this encounter Care Teams Frame Aligner Relationship Specialty Start Date End Date Jaiden Phillips MD [address] [place] [address] [address] [place], [place] PCP - General 07/26/23 documented as of this encounter
--- OUTSIDE RECORDS SUMMARY | 2024-09-26 07:50 | XMS_ITS | Encounter Summary ---
Author Organization [facility] [address] Care Team Providers Care Safety Grooving Machine Operator Name Role Phone Jaiden Phillips MD Primary Care Provider + [phone] Encounter Details Date Type Department Care Team [...] Info) Description 09/29/2024 3:00 PM EDT Appointment [address] [phone] 10/06/2024 3:00 PM EDT Appointment [facility] [address] [phone] 02/28/2025 8:15 AM EDT Office Visit Pulmonolgy - [place] 175 [facility] [address] [place] [phone] Jaelyn Page MD 175 [facility] 200 [place] [address] documented as of this encounter Visit Diagnoses Not on filedocumented in this encounter Care Teams Safety Grooving Machine Operator Relationship Specialty Start Date End Date Jaiden Phillips MD [address] [place] [address] [address] [place], [place] PCP - General 07/26/23 documented as of this encounter
== END 2024-09-26 07:48 | disposition home or self-care (01) ==
LOC: HO.NEURO 07:47
PROVIDERS: PCP Internal Medicine
DX: R20.0 Anesthesia of skin (principal)
CPT/HCPCS: 95886; 95909

== ENCOUNTER 2024-10-11 15:06 | Outpatient (REF) | payer OTHER, SELFPAY ==
--- NOTE | ~2024-10-11 | MR_ITS ---
EXAMINATION: MR LUMBAR SPINE WITHOUT CONTRAST CLINICAL INFORMATION: Radiculopathy, lumbar region. COMPARISON: None available. TECHNIQUE: MRI of the lumbar spine was obtained using routine sequences without contrast. FINDINGS: Last rib-bearing vertebra labeled T12. No bone marrow STIR signal abnormality. Multilevel marginal osteophyte formation and disc desiccation, T11-12 to L4-5. Modic type II endplate changes at L1. There is 1 mm retrolisthesis L3-4. The conus medullaris ends at superior endplate of L1 with normal signal. T11-12: Focal hyperintense T2 signal in the posterior intervertebral disc likely annular fissure. Broad-based disc bulging. No compression upon neural elements. T12-L1: Broad-based disc bulging. No central spinal canal or neuroforamina stenosis. L1-2: [Disc bulging. No central spinal canal or neuroforamina stenosis. L2-3: Broad-based disc bulging. No central spinal canal stenosis. Facet joint hypertrophy. Bilateral neuroforamina narrowing. L3-4: Broad-based disc bulging. Facet joint hypertrophy. Facet effusions. Reduced AP diameter of the thecal sac and the neural foramina. L4-5: Broad-based disc bulging. Facet joint hypertrophy. Reduced AP diameter of the thecal sac and neuroforamina. L5-S1: No compression upon neural elements. No prevertebral compartment hematoma, mass or fluid collection. Slight asymmetry volume loss in the right psoas muscle. Hyperintense T2 cystic lesion in the left kidney. MR/MR lumbar spine wo con IMPRESSION: Multilevel thoracolumbar spondylosis more conspicuous at L2-3, L3-4 and L4-5 levels. Electronically signed by: Elier Velazquez MD 10/12/2024 07:16 AM EDT
--- NOTE | ~2024-10-11 | XR_ITS ---
EXAMINATION: X-RAY PRE-MRI SCREENING. CLINICAL INFORMATION: Concerning metal orbits and hands. TECHNIQUE: 3 views of the orbits and 3 views of the hands. COMPARISON: None FINDINGS: Orbits: No metallic foreign body. Hands: No metallic or radiopaque foreign body. Degenerative changes in the first and second carpometacarpal joint and radial ulnar joint. XR/XR pre mri screening IMPRESSION: No metallic foreign body. Negative exam. Electronically signed by: Elier Velazquez MD 10/11/2024 03:55 PM EDT
--- OUTSIDE RECORDS SUMMARY | 2024-10-11 17:32 | XMS_ITS | Encounter Summary ---
Author Organization [facility] [place] [address] Care Team Providers Care Base Cloth Inspector Name Role Phone Jaiden Phillips MD Primary Care Provider + [phone] Encounter Details Date Type Department Care Team [...] Care Team (Late st Contact Info) Description 10/13/2024 3:30 PM EDT Appointment [facility] [address] [place] [phone] 10/20/2024 3:30 PM EDT Appointment [address] [phone] 10/27/2024 3:30 PM EDT Appointment [address] [phone] 11/03/2024 3:30 PM EDT Appointment [facility] [address] [place] [phone] 11/10/2024 3:30 PM EDT Appointment [address] [phone] 02/28/2025 8:15 AM EDT Office Visit Pulmonolgy - [place] [address] [phone] Jaelyn Page MD [address] [address] documented as of this encounter Visit Diagnoses Not on filedocumented in this encounter Care Teams Base Cloth Inspector Relationship Specialty Start Date End Date Jaiden Phillips MD [address] [place] [address] PCP - General 07/26/23 documented as of this encounter
--- OUTSIDE RECORDS SUMMARY | 2024-10-11 17:32 | XMS_ITS | Encounter Summary ---
Author Organization [facility] [place] [address] Care Team Providers Care Industrial Electrician Journeyman Name Role Phone Jaiden Phillips MD Primary Care Provider + [phone] Encounter Details Date Type Department Care Team [...] Info) Description 10/13/2024 3:30 PM EDT Appointment [facility] [address] [place] [phone] 10/20/2024 3:30 PM EDT Appointment [facility] [address] [place] [phone] 10/27/2024 3:30 PM EDT Appointment [facility] [address] [place] [phone] 11/03/2024 3:30 PM EDT Appointment [facility] [address] [place] [phone] 11/10/2024 3:30 PM EDT Appointment [facility] [address] [place] [phone] 02/28/2025 8:15 AM EDT Office Visit Pul[facility]olgy - [place] [address] [phone] Jaelyn Page MD [address] [address] documented as of this encounter Visit Diagnoses Not on filedocumented in this encounter Care Teams Industrial Electrician Journeyman Relationship Specialty Start Date End Date Jaiden Phillips MD [address] [place] [address] PCP - General 07/26/23 documented as of this encounter
--- OUTSIDE RECORDS SUMMARY | 2024-10-11 17:32 | XMS_ITS | Encounter Summary ---
Author Organization [facility] [place] [address] Care Team Providers Care Plastic Injection Mold Maker Name Role Phone Jaiden Phillips MD Primary Care Provider + [phone] Encounter Details Date Type Department Care Team [...] Info) Description 10/13/2024 3:30 PM EDT Appointment [facility] [address] [place] [phone] 10/20/2024 3:30 PM EDT Appointment [facility] [address] [place] [phone] 10/27/2024 3:30 PM EDT Appointment [facility] [address] [place] [phone] 11/03/2024 3:30 PM EDT Appointment [facility] [address] [place] [phone] 11/10/2024 3:30 PM EDT Appointment [facility] [address] [place] [phone] 02/28/2025 8:15 AM EDT Office Visit [facility]gy - [place] [address] [phone] Jaelyn Page MD 175 [facility] [address] [place] [address] documented as of this encounter Visit Diagnoses Not on filedocumented in this encounter Care Teams Plastic Injection Mold Maker Relationship Specialty Start Date End Date Jaiden Phillips MD [address] [place] [address] [address] JILL Rowe PCP - General 07/26/23 documented as of this encounter
--- OUTSIDE RECORDS SUMMARY | 2024-10-11 17:32 | XMS_ITS | Clinical Summary ---
Author Organization [facility] Address [address] [place] [address] Phone Care Team Providers Care Coiled Tubing Operator Name Role Phone Jadien Phillips MD Primary Care Provider [phone] Allergies No known active allergies Medications albuterol [...] NOT SWALLOW. 180 each 09/21/19 25 Active fluticasone propion-salmet Andria (Wixela Inhub) 500-50 mcg/dose diskus inhaler Inhale 1 puff by mouth 2 (two) times a day. Rinse mouth with water after use to reduce aftertaste and incidence of candidiasis. Do not swallow. 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 22 Severe persistent asthma without complication Encounters Date Type Department Care Team Description 10/06/2024 2:02 PM EDT - 10/06/2024 11:59 PM EDT Hospital Encounter [facility] [address] [place] [phone] Jaelyn Page MD Flqii-0-bwlmbqyipk inhibitor deficiency (CMS/HCC) (Primary Dx) Discharge Disposition: Home or Self Care 09/29/2024 2:53 PM EDT - 09/29/2024 11:59 PM EDT Hospital Encounter [address] [phone] Jaelyn Page MD Axtek-6-eskbhagwnk inhibitor deficiency (CMS/HCC) (Primary Dx) Discharge Disposition: Home or Self Care 09/22/2024 2:36 PM EDT - 09/22/2024 11:59 PM EDT Hospital Encounter [address] [phone] Jaelyn Page MD Jghrr-7-vkhxcsoeoo inhibitor deficiency (CMS/HCC) (Primary Dx) Discharge Disposition: Home or Self Care 09/15/2024 2:48 PM EST - 09/15/2024 11:59 PM EST Hospital Encounter [address] [phone] Jaelyn Page MD Eordi-7-oldrflevya inhibitor deficiency (CMS/HCC) (Primary Dx) Discharge Disposition: Home or Self Care 09/08/2024 3:00 PM EST - 09/08/2024 11:59 PM EST Hospital Encounter [address] [phone] Jaelyn Page MD Zlkvb-6-fjudjwvtwl inhibitor deficiency (CMS/HCC) (Primary Dx) Discharge Disposition: Home or Self Care 09/01/2024 2:47 PM EST - 09/01/2024 11:59 PM EST Hospital Encounter [address] [phone] Jaelyn Page MD Tirmg-7-vjtevbnyjy inhibitor deficiency (CMS/HCC) (Primary Dx) Discharge Disposition: Home or Self Care 08/25/2024 3:30 PM EST [facility] [place] [address] [phone] Jaelyn Page MD Severe persistent asthma without complication (CMS/HCC) (Primary Dx); Iaxtb-8-iuafmjzpzm inhibitor deficiency (CMS/HCC) 08/25/2024 1:20 PM EST - 08/25/2024 11:59 PM EST Hospital Encounter [address] [phone] Jaelyn Page MD Vsvnw-2-jmomvekiic inhibitor deficiency (CMS/HCC) (Primary Dx) Discharge Disposition: Home or Self Care 08/18/2024 2:51 PM EST - 08/18/2024 11:59 PM EST Hospital Encounter [facility] [address] [place] [phone] Jaelyn Page MD Zzili-8-gkekbceraw inhibitor deficiency (CMS/HCC) (Primary Dx) Discharge Disposition: Home or Self Care 08/11/2024 2:57 PM EST - 08/11/2024 11:59 PM EST Hospital Encounter [facility] [address] [place] [phone] Jaelyn Page MD Eaavl-6-lrezzzxhus inhibitor deficiency (CMS/HCC) (Primary Dx) Discharge Disposition: Home or Self Care 08/09/[address] [phone] Jaelyn Page MD Med Refill 08/04/2024 3:00 PM EST - 08/04/2024 11:59 PM EST Hospital Encounter [facility] [address] [place] [phone] Jaelyn Page MD Vlqpz-1-ykvzmevjbj inhibitor deficiency (CMS/HCC) (Primary Dx) Discharge Disposition: Home or Self Care 07/28/2024 2:17 PM EST - 07/28/2024 11:59 PM EST Hospital Encounter [address] [phone] Jaelyn Page MD Ldehe-2-nrgrtsxytt inhibitor deficiency (CMS/HCC) (Primary Dx) Discharge Disposition: Home or Self Care 07/21/2024 2:53 PM EST - 07/21/2024 11:59 PM EST Hospital Encounter [facility] [address] [place] [phone] Jaelyn Page MD Drpgk-5-ybjpsublzz inhibitor deficiency (CMS/HCC) (Primary Dx) Discharge Disposition: Home or Self Care 07/14/2024 2:33 PM EST - 07/14/2024 11:59 PM EST Hospital Encounter [facility] [address] [place] [phone] Vfugm-2-qceqtimjsh inhibitor deficiency (CMS/HCC) (Primary Dx) Discharge Disposition: [...] Sign Reading Time Taken Comments Blood Pressure 132/77 10/06/2024 2:07 PM EDT Pulse 81 10/06/2024 2:07 PM EDT Temperature 37.2 ??C (98.9 ??F) 10/06/2024 2:07 PM ED T Respiratory Rate 18 09/29/2024 3:06 PM EDT Oxygen Saturation 98% 10/06/2024 2:07 PM EDT Inhaled Oxygen Concentration - - Weight 113 kg (250 lb) 10/06/2024 2:07 PM EDT Height 182.9 cm (6') 08/25/2024 3:38 PM EST Body Mass Index 33.91 08/25/2024 3:38 PM EST Plan of Treatment Upcoming Encounters Date Type Department Care Team (Late st Contact Info) Description 10/13/2024 3:30 PM EDT Appointment [facility] [address] [place] [phone] 10/20/2024 3:30 PM EDT Appointment [facility] [address] [place] [phone] 10/27/2024 3:30 PM EDT Appointment [facility] [address] [place] [phone] 11/03/2024 3:30 PM EDT Appointment [facility] 271 [facility] [address] [place] [address] 11/10/2024 3:30 PM EDT Appointment [facility] [address] [phone] 02/28/2025 8:15 AM EDT Office Visit Pulmonolgy - [place] 175 [facility] [address] [place] [phone] Jaelyn Page MD 175 [facility] 200 [place] [address] Health Maintenance Due Date Last Done Comments [...] season) 2024 06/28/2021, 08/28/2020, 08/06/2020 Influenza Vaccine (Season Ended) 2025 HIB Vaccines Aged Out No longer eligi [...] patient's age to complete this topic Insurance [facility] Care Teams Coiled Tubing Operator Relationship Specialty Start Date End Date Jaiden Phillips MD 2 [facility] [address] [place], [place] PCP - General 07/26/23
--- OUTSIDE RECORDS SUMMARY | 2024-10-11 17:32 | XMS_ITS | Encounter Summary ---
Author Organization [facility] [place] [address] Care Team Providers Care Lime Kiln Worker Helper Name Role Phone Jaiden Phillips MD Primary Care Provider + [phone] Reason for Visit * Episode Based Medications (Routine) - Authorized Specialty Diagnoses / Procedures Referred By Wesley t Referred To Contact Diagnoses Vdwjn-0-enjgjaejxk inhibitor deficiency (CMS/HCC) Jaelyn Page MD [address] [address] Phone: tel: fax: [address] [address] Phone: tel: fax: Referral ID Status Reason Start Date Expiration Date V isits Requested Visits Authorized [id number] Authorized 05/19/2024 05/19/2025 1 99 Encounter Details Date Type Department Care Team (Latest Contact Info) Description 10/06/2024 2:02 PM EDT - 10/06/2024 11:59 PM EDT Hospital Encounter [address] [phone] Jaelyn Page MD [address] [address] Jjehi-5-rglhlqbbdw inhibitor deficiency (CMS/HCC) (Primary Dx) Discharge Disposition: [...] 10/06/2024 2:07 PM ED T Respiratory Rate - - Oxygen Saturation 98% 10/06/2024 2:07 PM EDT Inhaled Oxygen Concentration - - Weight 113 kg (250 lb) 10/06/2024 2:07 PM EDT Height - - Body Mass Index 33.91 08/25/2024 3:38 PM EST documented in this [...] Progress Notes * Bhavana Calderon RN - 10/06/2024 3:00 PM EDT Pt arrives for weekly prolastin infusion. Denies any acute issues. Pt rested during infusion over 20 minutes per patient preference. Pt has tolerated rate in past. Flushed line until clear. Pt stableupon discharge with apts in place. documented in this encounter Plan of Treatment Upcoming Encounters Date Type Department Care Team (Late st Contact Info) Description 10/13/2024 3:30 PM EDT Appointment [facility] [address] [place] [phone] 10/20/2024 3:30 PM EDT Appointment [facility] [address] [place] [phone] 10/27/2024 3:30 PM EDT Appointment [facility] [address] [phone] 11/03/2024 3:30 PM EDT Appointment [facility] [address] [phone] 11/10/2024 3:30 PM EDT Appointment [facility] [address] [phone] 02/28/2025 8:15 AM EDT Office Visit Pulmonolgy - [place] 175 [facility] [address] [place] [phone] Jaelyn Page MD 175 [facility] 200 [place] [address] documented as of this encounter Visit Diagnoses Diagnosis Xxihy-9-viuecgsodo inhibitor deficiency (CMS/HCC)- Primary Vvuwu-9-exuevnhwstt deficiency documented in this encounter Administered Medications Inactive Administered Medications - up to 3 most recent administrations Medication Order MAR Action Action Date Dose Rate Site alpha1-proteinase inhibitor (human) injection 6,900 mg 6,900 mg, intravenous, at 552 mL/hr, Administer over 15 Minutes, Once, On Wed10/06/24 at 1500, For 1 dose, weeklyIndications:Alpha-1-p roteinase inhibitor deficiency (CMS/HCC) New Bag 10/06/2024 3:02 PM EDT 6,900 mg 552 mL/hr documented in this encounter Orders Medications Ordered That Mike ht Not Have Been Administered Count Last Ordered Date First Ordered Date alpha1-proteinase inhibitor (human) injection 6,900 mg 1 10/06/2024 Nursing Count Last Ordered Date First Orde red Date ONC NURSING COMMUNICATION 1 10/06/2024 ONC NURSING COMMUNICATION 5 1 10/06/2024 ONC NURSING COMMUNICATION 9 10/06/2024 TREATMENT CONDITIONS 1 10/06/2024 Appointment Requests Count Last Ordered Date Fi rst Ordered Date ONCBCN INFUSION APPOINTMENT REQUEST 03 documented in this encounter Care Teams Lime Kiln Worker Helper Relationship Specialty Start Date End Date Jaiden Phillips MD [address] [place] [address] [address] JILL Rowe PCP - General 07/26/23 documented as of this encounter
--- OUTSIDE RECORDS SUMMARY | 2024-10-11 17:32 | XMS_ITS | Encounter Summary ---
Author Organization [facility] [place] [address] Care Team Providers Care Tree Deadener Name Role Phone Jaiden Phillips MD Primary Care Provider + [phone] Encounter Details Date Type Department Care Team [...] Info) Description 10/13/2024 3:30 PM EDT Appointment [facility] [address] [place] [phone] 10/20/2024 3:30 PM EDT Appointment [facility] [address] [place] [phone] 10/27/2024 3:30 PM EDT Appointment [facility] [address] [place] [phone] 11/03/2024 3:30 PM EDT Appointment [facility] [address] [place] [phone] 11/10/2024 3:30 PM EDT Appointment [facility] [address] [place] [phone] 02/28/2025 8:15 AM EDT Office Visit Pulmonolgy - [place] 175 [facility] [address] [place] [phone] Jaelyn Page MD [address] [address] documented as of this encounter Visit Diagnoses Not on filedocumented in this encounter Care Teams Tree Deadener Relationship Specialty Start Date End Date Jaiden Phillips MD [address] [place] [address] Dr [address] [place], [place] PCP - General 07/26/23 documented as of this encounter
--- OUTSIDE RECORDS SUMMARY | 2024-10-11 17:32 | XMS_ITS | Encounter Summary ---
Author Organization [facility] [place] [facility] [place] [address] Care Team Providers Care Inspector Eyeglass Frames Name Role Phone Jaiden Phillips MD Primary Care Provider + [phone] Encounter Details Date Type Department Care Team [...] Info) Description 10/13/2024 3:30 PM EDT Appointment [facility] [address] [place] [phone] 10/20/2024 3:30 PM EDT Appointment [address] [phone] 10/27/2024 3:30 PM EDT Appointment [facility] [address] [place] [phone] 11/03/2024 3:30 PM EDT Appointment [facility] [address] [place] [phone] 11/10/2024 3:30 PM EDT Appointment [address] [phone] 02/28/2025 8:15 AM EDT Office Visit Pulmonol - [place] [address] [phone] Jaelyn Page MD [address] [address] documented as of this encounter Visit Diagnoses Not on filedocumented in this encounter Care Teams Inspector Eyeglass Frames Relationship Specialty Start Date End Date Jaiden Phillips MD [address] [place] [address] [address] [place], [place] PCP - General 07/26/23 documented as of this encounter
--- OUTSIDE RECORDS SUMMARY | 2024-10-11 17:32 | XMS_ITS | Clinical Summary ---
Author Organization [facility] Address [address] [place] [address] Care Team Providers Care Church Worker Name Role Phone Jaiden Phillips MD Primary Care Provider [phone] Allergies No known active allergies Medications Medication [...] Active Problems Problem Noted Date Diagnosed Date Iqaeo-1-qjtcsjueib inhibitor deficiency 12/06/19 22 Social History Tobacco [...] age to complete this topic Care Teams Church Worker Relationship Specialty Start Date End Date Jaiden Phillips MD [address] [place] [address] Dr Jessica [place] [id number] PCP - General Internal Medicine 07/26/23
== END 2024-10-11 15:07 | disposition home or self-care (01) ==
LOC: HO.MRI 15:06
PROVIDERS: PCP Internal Medicine
DX: M54.16 Radiculopathy, lumbar region (principal)
CPT/HCPCS: 72148

== ENCOUNTER → 2024-10-11 15:08 | Outpatient (BNV) | payer OTHER, SELFPAY | PROVIDERS: PCP Internal Medicine; Visit Provider Radiology Diagnostic Radiology | DX: M47.815 Spondylosis without myelopathy or radiculopathy, thoracolumbar region (principal) | CPT/HCPCS: 72148 ==

== ENCOUNTER 2025-01-01 08:19 | Outpatient (REF) | payer OTHER, SELFPAY ==
--- NOTE | ~2025-01-01 | US_ITS ---
CLINICAL HISTORY: R79.89 - Other specified abnormal findings of blood chemistry US abdomen complete Comparison: None provided Findings: Mildly limited evaluation of the pancreas. No obvious focal abnormality. The aorta and inferior vena cava are normal caliber. Liver length estimated at 18.8 cm. No focal liver lesion. Unremarkable echogenicity. There is no intrahepatic bile duct dilatation. The common duct is 3 mm in diameter. There is a 4 mm polyp or focus of adherent sludge within the gallbladder. There are no shadowing gallstones. The main portal vein is antegrade. The right kidney is 12 cm in length. The left kidney is 12.4 cm in length. There is a 1.7 cm simple appearing cyst within the upper pole of the left kidney The spleen is 14.3 cm in length. No ascites. IMPRESSION: 1. Elongation of the liver which may represent a normal variant or mild hepatomegaly. 2. Tiny polyp or focus of adherent sludge within the gallbladder. 3. There is a mild degree of splenomegaly. This document has been electronically signed by: Janie Zarate MD on 01/02/2025 15:24:19
--- OUTSIDE RECORDS SUMMARY | 2025-01-01 08:30 | XMS_ITS | Clinical Summary ---
Author Organization [facility] Address [address] [place] [address] Phone Care Team Providers Care Window Maker Name Role Phone Jaiden Phillips MD Primary Care Provider Allergies No known active allergies Medications albuterol 2.5 mg /3 mL (0.083 %) nebulizer solution Inhale 3 mL (2.5 mg total) by mouth. 0 Active tiotropium (Spiriva Respimat) 1.25 mcg/actuation [...] day if needed. for pain 4 Active albuterol HFA (PROAIR HFA ; PROVENTIL HFA ; VENTOLIN HFA) 90 mcg/actuation inhaler Inhale 2 puffs by mouth every 6 (six) hours if needed for wheezing. 6.7 g 11 5 08/25/19 26 Active albuterol 2.5 mg /3 mL (0.083 %) nebulizer solution Take 3 mL (2.5 mg total) by nebulization every 4 (four) hours if needed for wheezing. 300 mL 3 5 08/25/19 26 Active levalbuterol (XOPENEX HFA) 45 mcg/actuation inhaler Inhale 2 puffs by mouth every 4 (four) hours if needed for wheezing. 1 g 3 5 08/28/19 26 Active Wixela Inhub 500-50 mcg/dose diskus inhaler INHALE 1 PUFF BY MOUTH 2 (TWO) TIMES A DAY. RINSE MOUTH WITH WATER AFTER USE TO REDUCE AFTERTASTE AND INCIDENCE OF CANDIDIASIS. DO NOT SWALLOW. 180 each 4 5 Active alpha-1 proteinase inhibitor, human, (Prolastin-C) solution injectionIndica tions:Alpha-1-p roteinase inhibitor deficiency ([facility] V24, [facility] V28) Infuse 6,840 mg into a venous catheter every 7 (seven) days. 1 each 51 5 12/29/19 26 Active Active Problems Problem Noted Date Diagnosed Date Xvzkp-3-jzozyudivk inhibitor deficiency ([facility] V24, [facility] V28) 12/05/2021 Severe persistent asthma without complication ([facility] [place]/[facility] V28) 08/03/2018 Encounters Date Type Department Care Team Description 12/29/2024 2:49 PM EDT Hospital Encounter [facility] [address] [facility] 2nd [place] [address] Eagmt-9-zsaqbqyktp inhibitor deficiency (CMS/[facility] V24, [facility] V28) (Primary Dx) 12/28/2024 Telephone Pulmonolgy - [place] [address] [facility] [address] [place] [address] Jaelyn Page MD Request For Order(s) 12/22/2024 2:47 PM EDT - 12/22/2024 11:59 PM EDT Hospital Encounter [facility] [address] [place] [phone] Lgexb-7-yovypevjia inhibitor deficiency (CMS/HCC V24, CMS/HCC V28) (Primary Dx) Discharge Disposition: Home or Self Care 12/15/2024 3:15 PM EDT - 12/15/2024 11:59 PM EDT Hospital Encounter [facility] [address] [place] [phone] Zxlqw-1-gnjgvxgawh inhibitor deficiency (CMS/HCC V24, CMS/HCC V28) (Primary Dx) Discharge Disposition: Home or Self Care 12/08/2024 2:33 PM EDT - 12/08/2024 11:59 PM EDT Hospital Encounter [facility] [address] [place] [phone] Diaup-7-mdpakyamjm inhibitor deficiency (CMS/HCC V24, CMS/HCC V28) (Primary Dx) Discharge Disposition: Home or Self Care 11/24/2024 2:54 PM EDT - 11/24/2024 11:59 PM EDT Hospital Encounter [address] [phone] Tudzy-6-lepeufsiip inhibitor deficiency (CMS/HCC V24, CMS/HCC V28) (Primary Dx) Discharge Disposition: Home or Self Care 11/17/2024 3:22 PM EDT - 11/17/2024 11:59 PM EDT Hospital Encounter [address] [phone] Cosih-1-ezqpbgmhiu inhibitor deficiency (CMS/HCC V24, CMS/HCC V28) (Primary Dx) Discharge Disposition: Home or Self Care 11/10/2024 3:07 PM EDT - 11/10/2024 11:59 PM EDT Hospital Encounter [facility] [address] [place] [phone] Jaelyn Page MD Utipf-6-fujrlrubxo inhibitor deficiency (CMS/HCC V24, CMS/HCC V28) (Primary Dx) Discharge Disposition: Home or Self Care 11/03/2024 3:23 PM EDT - 11/03/2024 11:59 PM EDT Hospital Encounter [facility] [address] [place] [phone] Jaelyn Page MD Byqpy-5-lyiadtpsqc inhibitor deficiency ([facility]/HCC V24, CMS/HCC V28) (Primary Dx) Discharge Disposition: Home or Self Care 10/27/2024 3:27 PM EDT - 10/27/2024 11:59 PM EDT Hospital Encounter [facility] [address] [place] [phone] Jaelyn Page MD Miqvs-1-rdknklvezr inhibitor deficiency ([facility]/HCC V24, CMS/HCC V28) (Primary Dx) Discharge Disposition: Home or Self Care 10/20/2024 3:17 PM EDT - 10/20/2024 11:59 PM EDT Hospital Encounter [facility] [address] [place] [phone] Jaelyn Page MD Gzpru-4-mnidfjgpwc inhibitor deficiency ([facility]/HCC V24, CMS/HCC V28) (Primary Dx) Discharge Disposition: Home or Self Care 10/13/2024 2:56 PM EDT - 10/13/2024 11:59 PM EDT Hospital Encounter [facility] [address] [place] [phone] Jaelyn Page MD Aupjb-4-utlunidqsb inhibitor deficiency ([facility]/HCC V24, CMS/HCC V28) (Primary Dx) Discharge Disposition: Home or Self Care 10/06/2024 2:02 PM EDT - 10/06/2024 11:59 PM EDT Hospital Encounter [facility] [address] [place] [phone] Jaelyn Page MD Aqbov-1-idehycganl inhibitor deficiency ([facility]/HCC V24, CMS/HCC V28) (Primary Dx) Discharge Disposition: Home or Self [...] Sign Reading Time Taken Comments Blood Pressure 139/86 12/29/2024 3:34 PM EDT Pulse 93 12/29/2024 3:34 PM EDT Temperature 36.9 C (98.5 F) 12/29/2024 3:34 PM EDT Respiratory Rate 18 12/22/2024 3:07 PM EDT Oxygen Saturation 96% 12/29/2024 3:34 PM EDT Inhaled Oxygen Concentration - - Weight 114 kg (252 lb) 12/29/2024 3:34 PM EDT Height 182.9 cm (6') 08/25/2024 3:38 PM EST Body Mass Index 34.18 08/25/2024 3:38 PM EST Plan of Treatment Upcoming Encounters Date Type Department Care Team (Late st Contact Info) Description 01/05/2025 3:30 PM EDT Appointment [facility] [address] [place] [phone] 01/11/2025 3:30 PM EDT Appointment [facility] [address] [place] [phone] 01/19/2025 3:30 PM EDT Appointment [facility] [address] [place] [phone] 01/26/2025 3:30 PM EDT Appointment [facility] [address] [place] [phone] 02/02/2025 3:30 PM EDT Appointment [facility] [address] [place] [phone] 02/09/2025 3:30 PM EDT Appointment [facility] [address] [facility] [address] 2[address] [place] [phone] 02/28/2025 8:15 AM EDT Office Visit Pulmonolgy - [place] [address] [facility] [address] [place] [phone] Jaelyn Page MD 175 [facility] [address] [place] [address] Health Maintenance Due Date Last Done Comments DTaP,Tdap,and Td Vaccines (1 - Tdap) 12/23/1998 Hepatitis A Vaccines (1 of 2 - Risk 2-dose series) 12/23/1998 Hepatitis B Vaccines (1 of 3 - 19+ 3-dose series) 12/23/1998 Pneumococcal Vaccine: Pediatrics (0 to 5 Years) and At-Risk Patients (6 to 64 Years) (1 of 2 - PCV) 12/23/1998 Cholesterol Screening (Lipid Panel) 06/20/2022 Colorectal Cancer Screening: Colonoscopy 06/20/2022 Depression Screening 06/20/2022 HIV Screening 06/20/2022 [...] age to complete this topic Meningococcal B Vaccine Aged Out No l onger eligible based on patient's age to complete this topic RSV Immunization Patients Under 20 months Aged Out No longer eligible b ased on patient's age to complete this topic Varicella Vaccines Aged Out No longer eligible based on patient's age to complete this topic Insurance [facility] Care Teams Window Maker Relationship Specialty Start Date End Date Jaiden Phillips MD [address] PCP - General 07/26/23
== END 2025-01-01 08:20 | disposition home or self-care (01) ==
LOC: HO.US 08:19
PROVIDERS: PCP Internal Medicine; Visit Provider Internal Medicine
DX: R79.89 Other specified abnormal findings of blood chemistry (principal); K82.4 Cholesterolosis of gallbladder
CPT/HCPCS: 76700

== ENCOUNTER → 2025-01-01 08:25 | Outpatient (BNV) | payer OTHER, SELFPAY | PROVIDERS: PCP Internal Medicine; Visit Provider Radiology Diagnostic Radiology | DX: R79.89 Other specified abnormal findings of blood chemistry (principal) | CPT/HCPCS: 76700 ==

== ENCOUNTER 2025-04-12 11:25 | Outpatient (AMB) | payer OTHER, SELFPAY ==
--- OUTSIDE RECORDS SUMMARY | 2024-04-14 12:00 | XMS_ITS | Encounter Summary ---
Author Organization [facility] [place] [address] Care Team Providers Care Washer Machine Name Role Phone Jaiden Phillips MD Primary Care Provider + [phone] Encounter Details Date Type Department Care Team (Late st Contact Info) Description 04/14/2024 12:00 PM EDT Hospital Encounter TH HISTORIC ENCOUNTERS EASTERN CONVERSION ONLY Social History Tobacco Use Types Packs/Day Years Used Date Smoking Tobacco: Former Smokeless Tobacco: Never Quit: 07/12/2015 Alcohol Use Standard Drinks/Week Comments No 0 (1 standard drink = 0.6 oz pur e alcohol) Sex and Gender Information Value Date Recorded Sex Assigned at Male 08/18/2024 2:50 PM EST Legal Sex Male 4:09 PM EST Gender Identity Male 08/18/2024 2:50 PM EST Sexual Orientation Straight 08/18/2024 2: 50 PM EST documented as of this encounter Last Filed Vital Signs Vital Sign Reading Time Taken Comments Blood Pressure - - Pulse - - Temperature - - Respiratory Rate - - Oxygen Saturation - - Inhaled Oxygen Concentration - - Weight 118 kg (259 lb 11.2 oz) 04/07/2024 2:00 P M EDT Height 182.9 cm (6') 03/10/2024 2:48 PM EDT Body Mass Index 35.22 03/10/2024 2:48 PM EDT documented in this encounter Progress Notes * Historical, Notes Results - 04/14/2024 3:00 PM EDT 1220- Pt arrived today for Prolastin-C infusion. Pt called to see if he could come in earlier or later as he has a conflict with another appt. Stable assessment without acute complaints or changes since last visit. Pt feels his breathing is about the same, no worse no better. PIV obtained. Treatment released. Pt resting comfortably at this time. Call valladares in reach. 1302- Prolastin completed without incident. Next appts in place and reviewed. No further questions.PIV removed. Pt left unit, stable at D/C. documented in this encounter Plan of Treatment Upcoming Encounters Date Type Department Care Team (Late st Contact Info) Description 04/13/2025 3:00 PM EDT Appointment [facility] [address] [place] [phone] 04/20/2025 3:00 PM EDT Appointment [facility] [address] [place] [phone] 04/27/2025 3:00 PM EDT Appointment [facility] [address] [place] [phone] 05/04/2025 3:00 PM EDT Appointment [facility] [address] [place] [phone] 05/11/2025 3:00 PM EDT Appointment [facility] [address] [place] [phone] 05/18/2025 3:00 PM EST Appointment [facility] [address] [place] [phone] 05/25/2025 3:00 PM EST Appointment [facility] [address] [place] [phone] 06/01/2025 3:00 PM EST Appointment [facility] [address] [place] [phone] 06/08/2025 3:00 PM EST Appointment [facility] [address] [place] [phone] 08/31/2025 8:30 AM EST Office Visit Pulmonology - [place] [address] [facility] [address] [place] [phone] Jaelyn Page MD [address] [facility] [address] [place] [address] documented as of this encounter Visit Diagnoses Not on filedocumented in this encounter Care Teams Washer Machine Relationship Specialty Start Date End Date Jaiden Phillips MD [address] [place] [address] [address] [place], [place] PCP - General 07/26/23 documented as of this encounter
--- OUTSIDE RECORDS SUMMARY | 2024-04-21 14:42 | XMS_ITS | Encounter Summary ---
Author Organization [facility] [place] [address] Care Team Providers Care Coding Support Specialist Name Role Phone Jaiden Phillips MD Primary Care Provider + [phone] Encounter Details Date Type Department Care Team (Late st Contact Info) Description 04/21/2024 2:42 PM EDT Hospital Encounter TH HISTORIC ENCOUNTERS [...] Weight 118 kg (259 lb 11.2 oz) 04/14/2024 12:02 PM EDT Height 182.9 cm (6') 03/10/2024 2:48 PM EDT Body Mass Index 35.22 03/10/2024 2:48 PM EDT documented in this encounter Progress Notes * Historical, Notes Results - 04/21/2024 3:00 PM EDT Patient arrives ambulatory for Prolastin infusion. Stable patient assessment. PIV inserted without difficulty. Patient resting comfortably in chair with call valladares in reach. 1530-Patient tolerated infusion without incident. PIV removed-intact. Patient has multiple weekly appointments in place. Patient stable upon discharge. documented in this encounter Plan of Treatment Upcoming Encounters Date Type Department Care Team (Late st Contact Info) Description 04/13/2025 3:00 PM EDT Appointment [facility] [address] [place] [phone] 04/20/2025 3:00 PM EDT Appointment [facility] [address] [place] [phone] 04/27/2025 3:00 PM EDT Appointment [facility] [address] [place] [phone] 05/04/2025 3:00 PM EDT Appointment [facility] [address] [place] [phone] 05/11/2025 3:00 PM EDT Appointment [facility] [address] [place] [phone] 05/18/2025 3:00 PM EST Appointment [facility] [address] [place] [phone] 05/25/2025 3:00 PM EST Appointment [facility] [address] [place] [phone] 06/01/2025 3:00 PM EST Appointment [facility] [address] [place] [phone] 06/08/2025 3:00 PM EST Appointment [facility] [address] [place] [phone] 08/31/2025 8:30 AM EST Office Visit Pulmonology - [address] [phone] Jaelyn Page MD [address] [facility] [address] [place] [address] documented as of this encounter Visit Diagnoses Not on filedocumented in this encounter Care Teams Coding Support Specialist Relationship Specialty Start Date End Date Jaiden Phillips MD [address] [place] [address] [address] [place], [place] PCP - General 07/26/23 documented as of this encounter
--- OUTSIDE RECORDS SUMMARY | 2024-04-28 15:01 | XMS_ITS | Encounter Summary ---
Author Organization [facility] [place] [address] Care Team Providers Care Crime Prevention Police Officer Name Role Phone Jaiden Phillips MD Primary Care Provider + [phone] Encounter Details Date Type Department Care Team (Late st Contact Info) Description 04/28/2024 3:01 PM EDT Hospital Encounter TH HISTORIC ENCOUNTERS [...] - Inhaled Oxygen Concentration - - Weight 119 kg (263 lb 3.2 oz) 04/21/2024 2:44 PM EDT Height 182.9 cm (6') 03/10/2024 2:48 PM EDT Body Mass Index 35.7 03/10/2024 2:48 PM EDT documented in this encounter Progress Notes * Historical, Notes Results - 04/28/2024 3:00 PM EDT Pt arrives today for Prolastin infusion. Pt states he is feeling well overall. PIV inserted??RIGHT??fa without incident. Infusion to run over 15 minutes per pt request. ?? 1540??Prolastin infusing. Pt tolerating well. Pt resting in chair. Call valladares in reach. ?? 1555??infusion complete. Pt tolerated well. PIV removed. Appointments in place for next treatments.Stable at discharge. documented in this encounter Plan of Treatment Upcoming Encounters Date Type Department Care Team (Late st Contact Info) Description 04/13/2025 3:00 PM EDT Appointment [facility] [address] [place] [phone] 04/20/2025 3:00 PM EDT Appointment [facility] [address] [place] [phone] 04/27/2025 3:00 PM EDT Appointment [facility] [address] [place] [phone] 05/04/2025 3:00 PM EDT Appointment [facility] [address] [place] [phone] 05/11/2025 3:00 PM EDT Appointment [facility] [address] [place] [phone] 05/18/2025 3:00 PM EST Appointment [facility] [address] [place] [phone] 05/25/2025 3:00 PM EST Appointment [facility] [address] [place] [phone] 06/01/2025 3:00 PM EST Appointment [facility] [address] [place] [phone] 06/08/2025 3:00 PM EST Appointment [facility] [address] [place] [phone] 08/31/2025 8:30 AM EST Office Visit Pulmonology - [place] [address] [facility] [address] [place] [phone] Jaelyn Page MD [address] [facility] [address] [place] [address] documented as of this encounter Visit Diagnoses Not on filedocumented in this encounter Care Teams Crime Prevention Police Officer Relationship Specialty Start Date End Date Jaiden Phillips MD [address] [place] [address] [address] [place], [place] PCP - General 07/26/23 documented as of this encounter
--- OUTSIDE RECORDS SUMMARY | 2024-05-05 14:49 | XMS_ITS | Encounter Summary ---
Author Organization [facility] [place] [address] Care Team Providers Care Criminal Justice Teacher Name Role Phone Jaiden Phillips MD Primary Care Provider + [phone] Encounter Details Date Type Department Care Team (Late st Contact Info) Description 05/05/2024 2:49 PM EDT Hospital Encounter TH HISTORIC ENCOUNTERS [...] Oxygen Concentration - - Weight 118 kg (260 lb) 04/28/2024 3:15 PM EDT Height 182.9 cm (6') 03/10/2024 2:48 PM EDT Body Mass Index 35.26 03/10/2024 2:48 PM EDT documented in this encounter Progress Notes * Historical, Notes Results - 05/05/2024 3:00 PM EDT Patient arrives ambulatory to unit for treatment of prolastin. Patient states that he's doing well.Patient continues to work. Patient has no questions/concerns for the provider at this time. Vitals are stable. Treatment released to pharmacy. IV placed in the left mid FA, +BR. NS KVO. 1527 Prolastin infusing over 20 minutes. Call valladares within reach. 1557 Patient tolerated treatment well, without adverse reaction/complaint. Next appt scheduled. Patient discharged stable, with steady gait. documented in this encounter Plan of Treatment Upcoming Encounters Date Type Department Care Team (Late st Contact Info) Description 04/13/2025 3:00 PM EDT Appointment [facility] [address] [place] [phone] 04/20/2025 3:00 PM EDT Appointment [facility] [address] [place] [phone] 04/27/2025 3:00 PM EDT Appointment [facility] [address] [place] [phone] 05/04/2025 3:00 PM EDT Appointment [facility] [address] [place] [phone] 05/11/2025 3:00 PM EDT Appointment [facility] [address] [place] [phone] 05/18/2025 3:00 PM EST Appointment [facility] [address] [place] [phone] 05/25/2025 3:00 PM EST Appointment [facility] [address] [place] [phone] 06/01/2025 3:00 PM EST Appointment [facility] [address] [place] [phone] 06/08/2025 3:00 PM EST Appointment [facility] [address] [place] [phone] 08/31/2025 8:30 AM EST Office Visit Pulmonology - [place] [address] [place] [phone] Jaelyn Page MD [address] [place] [address] documented as of this encounter Visit Diagnoses Not on filedocumented in this encounter Care Teams Criminal Justice Teacher Relationship Specialty Start Date End Date Jaiden Phillips MD [address] [place] [address] [address] [place], [place] PCP - General 07/26/23 documented as of this encounter
--- OUTSIDE RECORDS SUMMARY | 2024-05-12 14:38 | XMS_ITS | Encounter Summary ---
Author Organization [facility] [place] [address] Care Team Providers Care Occ Therapy Asst Name Role Phone Jaiden Phillips MD Primary Care Provider + [phone] Encounter Details Date Type Department Care Team (Late st Contact Info) Description 05/12/2024 2:38 PM EDT Hospital Encounter TH HISTORIC ENCOUNTERS [...] - - Weight 119 kg (263 lb 3.7 oz) 05/05/2024 2:55 PM EDT Height 182.9 cm (6') 03/10/2024 2:48 PM EDT Body Mass Index 35.7 03/10/2024 2:48 PM EDT documented in this encounter Progress Notes * Historical, Notes Results - 05/12/2024 3:00 PM EDT 1500- Pt arrived today for weekly prolastin-c infusions. Stable assessment without acute complaintsor changes since last visit. Pt resting comfortably at this time. Call valladares in reach. ?? 1600- Prolastin completed without incident. Next appts in place and reviewed. No further questions.PIV removed. Pt left unit, stable at D/C. documented in this encounter Plan of Treatment Upcoming Encounters Date Type Department Care Team (Late st Contact Info) Description 04/13/2025 3:00 PM EDT Appointment [facility] [address] [place] [phone] 04/20/2025 3:00 PM EDT Appointment [facility] [address] [place] [phone] 04/27/2025 3:00 PM EDT Appointment [facility] [address] [place] [phone] 05/04/2025 3:00 PM EDT Appointment [facility] [address] [place] [phone] 05/11/2025 3:00 PM EDT Appointment [facility] [address] [place] [phone] 05/18/2025 3:00 PM EST Appointment [facility] [address] [place] [phone] 05/25/2025 3:00 PM EST Appointment [facility] [address] [place] [phone] 06/01/2025 3:00 PM EST Appointment [facility] [address] [place] [phone] 06/08/2025 3:00 PM EST Appointment [facility] [address] [place] [phone] 08/31/2025 8:30 AM EST Office Visit Pulmonology - [address] [place] [phone] Jaelyn Page MD [address] [facility] [address] [place] [address] documented as of this encounter Visit Diagnoses Not on filedocumented in this encounter Care Teams Occ Therapy Asst Relationship Specialty Start Date End Date Jaiden Phillips MD [address] [place] [address] Dr [address] [place], [place] PCP - General 07/26/23 documented as of this encounter
--- OUTSIDE RECORDS SUMMARY | 2025-04-06 15:00 | XMS_ITS | Encounter Summary ---
Author Organization [facility] [place] [address] Care Team Providers Care Core Rescuer Name Role Phone Jaiden Phillips MD Primary Care Provider + [phone] Reason for Visit * Episode Based Medications (Routine) - Authorized Specialty Diagnoses / Procedures Referred By Contac t Referred To Contact Diagnoses Pnfms-8-wxgfpsvygi inhibitor deficiency ([facility]/HCC V24, [facility] V28) Jaelyn Page MD [address] [address] Phone: tel: fax: [facility] [address] [place] [phone] Phone: tel: fax: Referral ID Status Reason Start Date Expiration Date V isits Requested Visits Authorized [id number] Authorized 05/19/2024 05/19/2025 1 77 Encounter Details Date Type Department Care Team (Latest Contact Info) Description 04/06/2025 3:00 PM EDT - 04/06/2025 11:59 PM EDT Hospital Encounter [facility] [address] [place] [phone] Jaelyn Page MD [address] [address] Kzzbs-3-lpffprljyx inhibitor deficiency ([facility] V24, [facility] V28) (Primary Dx) Discharge Disposition: Home or [...] Sign Reading Time Taken Comments Blood Pressure 135/77 04/06/2025 3:10 PM EDT Pulse 95 04/06/2025 3:10 PM EDT Temperature 36.8 C (98.3 F) 04/06/2025 3:10 PM EDT Respiratory Rate - - Oxygen Saturation 97% 04/06/2025 3:10 PM EDT Inhaled Oxygen Concentration - - Weight 119 kg (263 lb) 04/06/2025 3:10 PM EDT Height - - Body Mass Index 34.7 02/28/2025 8:20 AM EDT documented in this encounter Medications at [...] for wheezing. 6.7 g 11 08/25/2024 6 alpha-1 proteinase inhibitor, human, (Prolastin-C) solution injectionIndicat ions:Alpha-1-pro teinase inhibitor deficiency ([facility] V24, [facility] V28) Infuse 6,840 mg into a venous catheter every 7 (seven) days. 1 each 51 12/28/2024 6 budesonide-formo teroL (Breyna) 160-4.5 mcg/actuation inhaler Inhale 2 puffs by mouth 2 (two) times a day. Rinse mouth with water after use to reduce aftertaste and incidence of candidiasis. Do not swallow. 1 each 12 02/28/2025 6 cyclobenzaprine (FLEXERIL) 10 mg tablet PLEASE SEE [...] 05/27/2024 levalbuterol (XOPENEX HFA) 45 mcg/actuation inhaler INHALE 2 PUFFS BY MOUTH EVERY 4 (FOUR) HOURS IF NEEDED FOR WHEEZING. 1 g 11 01/22/2025 6 meloxicam (MOBIC) 15 mg tablet Take 1 [...] Progress Notes * Giovana Key RN - 04/06/2025 3:00 PM EDT Arrived amb for prolastin. Feeling well, stable assessment. PIV placed in left forearm. 1617 Prolastin infused over 20 mins without incident, pt feeling well, left amb, stable at D/C. documented in this encounter Plan of Treatment Upcoming Encounters Date Type Department Care Team (Late st Contact Info) Description 04/13/2025 3:00 PM EDT Appointment [facility] [address] [place] [phone] 04/20/2025 3:00 PM EDT Appointment [facility] [address] [place] [phone] 04/27/2025 3:00 PM EDT Appointment [facility] [address] [place] [phone] 05/04/2025 3:00 PM EDT Appointment [facility] [address] [place] [phone] 05/11/2025 3:00 PM EDT Appointment [facility] [address] [place] [phone] 05/18/2025 3:00 PM EST Appointment [facility] [address] [place] [phone] 05/25/2025 3:00 PM EST Appointment [facility] [address] [place] [phone] 06/01/2025 3:00 PM EST Appointment [facility] [address] [place] [phone] 06/08/2025 3:00 PM EST Appointment [facility] [address] [place] [phone] 08/31/2025 8:30 AM EST Office Visit Pulmonology - [place] [address] [phone] Jaelyn Page MD [address] [address] documented as of this encounter Visit Diagnoses Diagnosis Mzokp-2-dbirhsxecr inhibitor deficiency (CMS/HCC V24, CMS/HCC V28)- Primary Cbybn-0-nllbqapmpsy deficiency documented in this encounter Administered Medications Inactive Administered Medications - up to 3 most recent administrations Medication Order MAR Action Action Date Dose Rate Site alpha1-proteinase inhibitor (human) injection 6,900 mg 6,900 mg, intravenous, at 552 mL/hr, Administer over 15 Minutes, Once, On Wed04/06/25 at 1530, For 1 dose, weekly For ZEMAIRA: Filter the reconstituted solution during administration with an intravenous administration set with a suitable 5 micron infusion filterIndications:Alpha-1-pro teinase inhibitor deficiency ([facility] V24, CMS/HCC V28) New Bag 04/06/2025 3:55 PM EDT 6,900 mg 420 mL/hr documented in this encounter Orders Medications Ordered That Mike ht Not Have Been Administered Count Last Ordered Date First Ordered Date sodium chloride 0.9 % infusion 1 04/06/2025 Nursing Count Last Ordered Date First Orde red Date ONC NURSING COMMUNICATION 1 04/06/2025 ONC NURSING COMMUNICATION 5 1 04/06/2025 ONC NURSING COMMUNICATION 9 04/06/2025 TREATMENT CONDITIONS 1 04/06/2025 Appointment Requests Count Last Ordered Date Fi rst Ordered Date ONCBCN INFUSION APPOINTMENT REQUEST 03 documented in this encounter Care Teams Core Rescuer Relationship Specialty Start Date End Date Jaiden Phillips MD [address] [place] [address] [address] [place] PCP - General 07/26/23 documented as of this encounter
[2025-04-12 11:28] VITALS: BP 132/90; PULSE 76; TEMP 36.3; O2SAT 97; BMI 34.4
--- NOTE | 2025-04-12 11:28 | MHC.PC.OV ---
Vital Signs 04/12/25 11:28 Height 6 ft 1 in Weight 261 lb BMI 34.4 BP 132/90 H Blood Pressure Location Lt brachial Position Sitting Pulse 76 Pulse Source Pulse Oximeter Temp 97.3 F Temp Source Temporal Artery Scan Pulse Oximetry (%) 97 Oxygen Delivery Method Room Air Intake Visit Reasons: follow up Allergies No Known Allergies Allergy (Verified 04/12/25 11:45) Medication List - Last Reconciled 04/12/25 by Beth Martinez PA-C albuterol sulfate 2.5 mg (3 mL) inhalation Q4H PRN albuterol sulfate 90 mcg/actuation 2 inhalations inhalation Q4H PRN alpha-1 proteinase inhib.(hum) IV QWEEK [Bilateral wrist splints Right and Left As directed] cyclobenzaprine 10 mg PO TID PRN fluticasone propion-salmeterol 500-50 mcg/dose (Wixela Inhub) 1 inh PO BID gabapentin 100 mg PO BEDTIME [Hinged KNEE Brace As directed] meloxicam 15 mg PO DAILY sildenafil 50 mg PO DAILY PRN Tobacco use date assessed: 04/12/25 Dental Screening Dental Screen Date: 04/12/25 Did you have a dental visit in the last 12 months?: Yes Did you have a dental problem in the last 6 months where you did not have access to dental care?: No Was dental information given to patient?: Patient has dentist HPI follow up HPI Details He was also seen by Cardiology [id number] male with past medical history of obesity, impaired glucose tolerance, asthma, alpha 1 antitrypsin deficiency last seen 09/2024 coming in for follow up. Patient tells us today continues with low back pain that radiates down the left leg. Symptoms have been worsening. Due to insurance issues he was unable to see the spine specialists currently working with worker's comp to establish care with another spinal specialists. [facility] Medical History LFT elevation Osteoarthritis of right knee Sqlew-3-gelvkqrguvx deficiency Severe persistent asthma Vitamin D deficiency Physical exam Obesity (BMI 30-39.9) Impaired glucose tolerance Surgical History Finger fracture Status post arthroscopy of hip Family History Father No problems noted. Mother No problems noted. Maternal Grandfather Myocardial infarction Paternal Grandfather Esophageal cancer Social History Housing: House Alcohol intake: current Comment: once Q 2months 2-3 drinks Patient Tobacco Use Status: Former Tobacco user Tobacco use type: Cigarette e-Cigarette/Vaping Use: Never Used Second Hand Smoke Exposure: Yes service: No Current occupational status: employed Cognitive needs: No Hearing needs: No Vision needs: Yes (contacts) Questionnaire PHQ-9 Over the last 2 weeks, how often have you been bothered by any of the following problems? 1. Little interest or pleasure in doing things: not at all 2. Feeling down, depressed, or hopeless: not at all 3. Trouble falling or staying asleep, or sleeping too much: not at all 4. Feeling tired or having little energy: not at all 5. Poor appetite or overeating: not at all 6. Feeling bad about yourself - or that you are a failure or have let yourself or your family down: not at all 7. Trouble concentrating on things, such as reading the newspaper or watching television: not at all 8. Moving or speaking so slowly that other people could have noticed. Or the opposite - being so fidgety or restless that you have been moving around a lot more than usual: not at all 9. Thoughts that you would be better off or of hurting yourself in some way: not at all Total score: 0 Source: Developed by Drs. Ronnell Hull, Yolanda Ramirez, Dc Campbell and colleagues, with an educational brayan from [employer]. Thrive Questionnaire Date Thrive assessed: 08/31/24 I am a: Patient What is your living situation today?: I have a steady place to live Within the past 12 months, did the food you bought not last and you didn't have the money to get more?: I choose not to answer this question Within the past 12 months, did you worry whether your food would run out before you got money to buy more?: I choose not to answer this question Do you have trouble paying for medicines?: I choose not to answer this question Do you have trouble getting transportation to medical appointments?: No Do you have trouble paying your heating and electricity bill?: No Do you have trouble taking care of your child, family member or friend?: No Do you have trouble with day-to-day activities such as bathing, preparing meals, shopping, managing finances, etc.?: No Are you currently unemployed and looking for a job?: No Are you interested in more education?: No Please select the resources that you would like help with: None Currently or been in a relationship where the following occur: I choose not to answer THRIVE Score: 0 AUDIT C Alcohol Use Questionnaire (AUDIT-C) 1. How often do you have a drink containing alcohol?: Never 3. How often do you have six or more drinks on one occasion?: Never Total Score: 0 AMIRAH-7 AMB Questionnaire AMIRAH-7 Date AMIRAH - 7 assessed: 08/31/24 Feeling nervous, anxious, or on edge: 0 = Not at all Not being able to stop or control worryin = Not at all Worrying too much about different things: 0 = Not at all Trouble relaxin = Not at all Being so restless that it is hard to sit still: 0 = Not at all Becoming easily annoyed or irritable: 0 = Not at all Feeling afraid as if something awful might happen: 0 = Not at all Total AMIRAH-7 score (0-4 normal; 5-9 mild; 10-14 moderate; 15-21 severe): 0 Source: Developed by Drs. Ronnell Hull, Yolanda Ramirez, Dc Campbell and colleagues, with an educational brayan from [employer]. Review of Systems Const Denies body aches, Denies chills and Denies fever(s) Card Denies chest pain and Denies dyspnea Resp Denies dyspnea Musc Details: low back pain with radiculopathy Reports as per HPI Physical exam (Primary Care) Vital Signs: Last Vital Signs Temp 97.3 F 04/12/25 11:28 Pulse 76 04/12/25 11:28 BP 132/90 H 04/12/25 11:28 Pulse Ox 97 04/12/25 11:28 Oxygen Delivery Method Room Air 04/12/25 11:28 BMI result Body Mass Index 34.4 Tobacco/Smoking Status: Tobacco use Status Tobacco use date assessed 04/12/25 04/12/25 11:36 Patient Tobacco Use Status Former Tobacco user 04/12/25 11:36 Tobacco use type Cigarette 04/12/25 11:36 e-Cigarette/Vaping Use Never Used 04/12/25 11:36 PHQ-9: PHQ-9 Score PHQ-9: Total score 0 04/12/25 11:36 Thrive Assessment: Date of Thrive Assessment Date Thrive assessed 08/31/24 04/12/25 11:36 Currently or been in a relationship where the following occur: I choose not to answer Const General: cooperative, healthy appearing, comfortable and no acute distress Orientation/consciousness: patient oriented x3 HENMT Head: Yes normocephalic Ears: hearing grossly normal bilaterally General nose exam: Normal external nose present Eyes General: appearance normal, both eyes and all related structures Conjunctivae: conjunctivae normal Neck Neck: Yes full ROM and Yes no lymphadenopathy Resp Effort & Inspection: normal respiratory effort Cardio Rate: regular rate Skin General skin exam: no rashes or lesions noted Neuro General: patient oriented x3 Gait exam (Neuro): Normal gait present Extrem General: Yes normal to inspection, Yes full ROM and No edema Psych Affect: normal affect Attitude: cooperative Insight: Good insight present (Psych) Judgement: Good judgement present (Psych) Coding Level of Care Code Est Pt Level 3 (26842) Diagnoses Left leg numbness R20.0 Low back pain M54.50 Assessment & Plan Assessment & Plan (1) Left leg numbness: Code(s): R20.0 - Anesthesia of skin Category: Medical Plan: Lower extremity EMG and MRI has been obtained and recommend following up with spinal specialists. He is currently working with insurance to find a provider in his network. He will discuss with the workmen's comp and reach out should he need referrals. Recommend continue use of meloxicam and cyclobenzaprine as needed. He has not yet tried the gabapentin but agrees to try this for the nerve pain as well. (2) Low back pain: Code(s): M54.50 - Low back pain, unspecified Category: Medical Plan: Recently discharged from physical therapy and continues to use meloxicam as needed for pain. Continue with physical therapy exercises. See above plan Plan This note was constructed using voice recognition software. While every effort has been made to ensure accuracy and supervisor purification, still areas may have been included sometimes these areas may affect the content or meeting of the given symptoms. Total time spent caring for the patient today was 20 minutes. This includes time spent before the visit reviewing the chart, time spent during the visit, and time spent after the visit and documentation. Medications: Refilled meloxicam 15 mg PO DAILY 30 tabs 1RF M25.561 - Pain in right knee, M25.562 - Pain in left knee cyclobenzaprine Do not take this medication before driving or working 10 mg PO TID PRN 20 tabs 0RF muscle spasm
--- OUTSIDE RECORDS SUMMARY | 2025-04-12 13:17 | XMS_ITS | Clinical Summary ---
Author Organization [facility] Address [address] [place] [address] Phone Care Team Providers Care Pattern Cleaner Name Role Phone Jaiden Phillips MD [...] 300 mL 3 5 08/25/19 26 Active alpha-1 proteinase inhibitor, human, (Prolastin-C) solution injectionIndica tions:Alpha-1-p roteinase inhibitor deficiency ([facility] V24, [facility] V28) Infuse 6,840 mg into a venous catheter every 7 (seven) days. 1 each 51 5 12/29/19 26 Active levalbuterol (XOPENEX HFA) 45 mcg/actuation inhaler INHALE 2 PUFFS BY MOUTH EVERY 4 (FOUR) HOURS IF NEEDED FOR WHEEZING. 1 g 11 5 01/23/20 26 Active budesonide-form oteroL (Breyna) 160-4.5 mcg/actuation inhaler Inhale 2 puffs by mouth 2 (two) times a day. Rinse mouth with water after use to reduce aftertaste and incidence of candidiasis. Do not swallow. 1 each 12 5 02/29/20 26 Active Active Problems Problem Noted Date Diagnosed Date Eftkg-8-vpvthiolop inhibitor deficiency ([facility] V24, [facility] V28) 12/05/2021 Severe persistent asthma without complication ([facility] V28) 08/03/2018 Encounters Date Type Department Care Team Description 04/06/2025 3:00 PM EDT - 04/06/2025 11:59 PM EDT Hospital Encounter [facility] [address] [place] [phone] Jaelyn Page MD Qyzor-2-dkxptkweif inhibitor deficiency ([facility] V24, [facility] V28) (Primary Dx) Discharge Disposition: Home or Self Care 03/30/2025 2:30 PM EDT - 03/30/2025 11:59 PM EDT Hospital Encounter [facility] [address] [place] [phone] Jaelyn Page MD Atsii-3-lnnsivhyha inhibitor deficiency ([facility]/HCC V24, CMS/HCC V28) (Primary Dx) Discharge Disposition: Home or Self Care 03/23/2025 2:45 PM EDT - 03/23/2025 11:59 PM EDT Hospital Encounter [address] [phone] Jaelyn Page MD Osbla-4-knbmollmie inhibitor deficiency (CMS/HCC V24, CMS/HCC V28) (Primary Dx) Discharge Disposition: Home or Self Care 03/16/2025 2:49 PM EDT - 03/16/2025 11:59 PM EDT Hospital Encounter [address] [phone] Jaelyn Page MD Bvpkf-3-bskxrbsnnl inhibitor deficiency ([facility]/HCC V24, CMS/HCC V28) (Primary Dx) Discharge Disposition: Home or Self Care 03/09/2025 3:00 PM EDT - 03/09/2025 11:59 PM EDT Hospital Encounter [address] [phone] Jaelyn Page MD Vvtbf-6-cusxhsjgpk inhibitor deficiency ([facility]/HCC V24, CMS/HCC V28) (Primary Dx) Discharge Disposition: Home or Self Care 03/02/2025 2:24 PM EDT - 03/02/2025 11:59 PM EDT Hospital Encounter [address] [phone] Jaelyn Page MD Zzzdz-0-kttjtqiprj inhibitor deficiency ([facility]/HCC V24, CMS/HCC V28) (Primary Dx) Discharge Disposition: Home or Self Care 02/28/2025 8:15 AM EDT Office Visit Pulmonology - [place] [address] [facility] [address] [place] [phone] Jaelyn Page MD Gzvvh-6-ctzbihugkf inhibitor deficiency (CMS/HCC V24, CMS/HCC V28) (Primary Dx); Severe persistent asthma without complication ([facility]/HCC V28) 02/23/2025 3:00 PM EDT - 02/23/2025 11:59 PM EDT Hospital Encounter [facility] [address] [place] [phone] Jaelyn Page MD Osdpg-9-ilweqsiwcl inhibitor deficiency ([facility]/HCC V24, [facility]/HCC V28) (Primary Dx) Discharge Disposition: Home or Self Care 02/16/2025 2:32 PM EDT - 02/16/2025 11:59 PM EDT Hospital Encounter [facility] [address] [place] [phone] Ijiwh-1-dgefrwkbpw inhibitor deficiency (CMS/HCC V24, CMS/HCC V28) (Primary Dx) Discharge Disposition: Home or Self Care 02/09/2025 2:48 PM EDT - 02/09/2025 11:59 PM EDT Hospital Encounter [facility] [address] [place] [phone] Jaelyn Page MD Orlzs-2-kxvhbdrydj inhibitor deficiency ([facility] V24, [facility]/HCC V28) (Primary Dx) Discharge Disposition: Home or Self Care 02/02/2025 2:40 PM EDT - 02/02/2025 11:59 PM EDT Hospital Encounter [facility] [address] [place] [phone] Mhhii-3-vhkpwrwunt inhibitor deficiency ([facility]/HCC V24, [facility] V28) (Primary Dx) Discharge Disposition: Home or Self Care 01/26/2025 3:20 PM EDT - 01/26/2025 11:59 PM EDT Hospital Encounter [facility] [address] [place] [phone] Irjnt-0-shbkvetoae inhibitor deficiency ([facility]/HCC V24, CMS/HCC V28) (Primary Dx) Discharge Disposition: Home or Self Care 01/19/2025 3:02 PM EDT - 01/19/2025 11:59 PM EDT Hospital Encounter [facility] [address] [place] [phone] Whcef-4-tcgbjfpopl inhibitor deficiency ([facility] V24, [facility] V28) (Primary Dx) Discharge Disposition: Home or Self Care 01/11/2025 3:19 PM EDT - 01/11/2025 11:59 PM EDT Hospital Encounter [address] [phone] Lpxlf-7-gxxpcawjth inhibitor deficiency ([facility] V24, [facility] V28) (Primary Dx) Discharge Disposition: Home [...] F) 04/06/2025 3:10 PM EDT Respiratory Rate 18 03/16/2025 2:52 PM EDT Oxygen Saturation 97% 04/06/2025 3:10 PM EDT Inhaled Oxygen Concentration - - Weight 119 kg (263 lb) 04/06/2025 3:10 PM EDT Height 185.4 cm (6' 1 ) 02/28/2025 8:20 AM EDT Body Mass Index 34.7 02/28/2025 8:20 AM EDT Plan of Treatment Upcoming Encounters Date Type Department Care Team (Late st Contact Info) Description 04/13/2025 3:00 PM EDT Appointment [address] [phone] 04/20/2025 3:[address] [facility] [address] [place] [phone] 04/27/2025 3:[address] [facility] [address] [place] [phone] 05/04/2025 3:[address] [facility] [address] [place] [phone] 05/11/2025 3:[address] [facility] [address] [place] [phone] 05/18/2025 3:[address] [facility] [address] [place] [phone] 05/25/2025 3:[address] [facility] [address] [place] [phone] 06/01/2025 3:[address] [facility] [address] [place] [phone] 06/08/2025 3:[address] [facility] [address] [place] [phone] 08/31/2025 8:30 AM EST Office Visit Pulmonology - [place] [address] [phone] Jaelyn Page MD [address] [address] Health Maintenance Due Date Last Done Comments Colorectal Cancer Screening: Colonoscopy 1979 DTaP,Tdap,and Td Vaccines (1 - Tdap) 12/23/1998 Hepatitis A Vaccines (1 of 2 - Risk 2-dose series) 12/23/1998 Hepatitis B Vaccines (1 of 3 - 19+ 3-dose series) 12/23/1998 Pneumococcal Vaccine: Pediatrics (0 to 5 Years) and At-Risk Patients (6 to 49 Years) (1 of 2 - PCV) 12/23/1998 HPV Vaccines (1 - 3-dose SCD M series) 12/23/2006 Cholesterol Screening (Lipid Panel) 06/20/2022 HIV Screening 06/20/2022 Hepatitis C Screening 06/20/2022 Social Influencers of Health Screening 06/20/2022 Depression Screening 07/12/2024 COVID-19 Vaccine (4 - 2024-2 6 season) 2025 06/28/2021, 08/28/2020, 08/06/2020 Influenza Vaccine (#1) 2025 RSV Immunization Adult Patients (1 - 1-dose 75+ series) 12/23/2054 HIB Vaccines Aged Out No longer eligi [...] to complete this topic Insurance Care Teams Pattern Cleaner Relationship Specialty Start Date End Date Jaiden Phillips MD [address] [place] [address] Dr [address] JILL Rowe PCP - General 07/26/23
--- OUTSIDE RECORDS SUMMARY | 2025-04-12 13:17 | XMS_ITS | Clinical Summary ---
Author Organization [facility] Address [address] [place] [address] Care Team Providers Care Rewind Operator Name Role Phone Jaiden Phillips MD Primary Care Provider [phone] Allergies No known active allergies Medications Medication [...] Active Problems Problem Noted Date Diagnosed Date Upake-8-wateougwce inhibitor deficiency 12/06/19 22 Social History Tobacco [...] 98 05/12/2024 3:00 PM EDT Temperature 36.4 C (97.6 F) 05/12/2024 3:00 PM EDT Respiratory Rate 18 05/05/2024 2:55 PM EDT [...] (2 of 2 - PCV) 08/23/2018 08/23/2017 Colon Cancer Screening (Colonoscopy) 12/23/2024 COVID-19 Vaccine (4 - 2024-2 6 season) 2025 06/28/2021, 08/28/2020, 08/06/2020 Influenza Vaccine (#1) 2025 8, 08/20/2010 RSV Ped < 20 months Aged Out No longe r eligible based on patient's age to complete this topic Care Teams Rewind Operator Relationship Specialty Start Date End Date Jaiden Phillips MD [address] [place] [address] PCP - General Internal Medicine 07/26/23
== END 2025-04-12 12:44 | disposition home or self-care (01) ==
LOC: HO.HMCH 11:26
PROVIDERS: PCP Internal Medicine
DX: R20.0 Anesthesia of skin (principal); M54.50 Low back pain, unspecified